=== PATIENT | female | born 1980 | race Caucasian/White ===

== ENCOUNTER 2019-01-21 06:07 | Emergency (ER) | payer MEDICAID ==
[2019-01-21] MEDS ORDERED: HYDROmorphone 1 MG/ML CARPUJECT IVP STA (06:32)
[2019-01-21] MEDS ORDERED: ONDANSETRON 4 MG/2 ML VIAL IVP STA (06:32)
[2019-01-21] MEDS ORDERED: SODIUM CHLORIDE 0.9% 1,000 ML IV ONE (06:34)
--- NOTE | 2019-01-21 06:34 | ED Physician Documentation ---
<Skyler Stroud - Last Filed: 01/21/19 07:34> PD HPI ABD PAIN - Stated complaint Stated Complaint: RT SIDE PX - Chief complaint Chief Complaint: Abd Pain - History obtained from History obtained from: Patient - History of Present Illness Timing - onset: How many days ago (2) Timing - duration: Days (2) Timing - details: Intermittant (She states she has had right upper quadrant intermittent pains for the last couple of days lasting a few minutes at a time and moderate in severity. It did not seem to correlate with eating per se. She then had an abrupt onset of it this morning that was severe and intensity and persisted associated with some nausea. It is easing up a little bit now but has been hurting a lot for about an hour.) Quality: Cramping, Aching, Pain Location: RUQ Radiation: No: Lower back, Right shoulder Improved by: No: Laying still Worsened by: Moving, Palpation Associated symptoms: Nausea. No: Fever, Vomiting, Diarrhea, Constipation, Dysuria Similar symptoms before: Has not had sx before (just the past 2 days) Recently seen: Not recently seen Review of Systems Constitutional: denies: Fever, Chills Nose: denies: Rhinorrhea / runny nose, Congestion Throat: denies: Sore throat Respiratory: denies: Cough GI: reports: Abdominal Pain (Just noted as in the present illness. She had not been noticing any food intolerance or prior abdominal pains.), Nausea. denies: Vomiting, Constipation, Diarrhea : denies: Dysuria, Frequency Skin: denies: Rash, Lesions Neurologic: reports: Generalized weakness. denies: Focal weakness, Numbness, Near syncope PD PAST MEDICAL HISTORY - Past Medical History Past Medical History: Yes Cardiovascular: None Respiratory: None Neuro: None Endocrine/Autoimmune: None GI: Other WOOD STAINER: None : None HEENT: None Psych: None Musculoskeletal: Chronic back pain, Other Derm: None Other Past Medical History: PYLORIC STENOSIS...SCIATICA... - Past Surgical History Past Surgical History: Yes General: Other /WOOD STAINER: section HEENT: Tonsil/Adenoidectomy - Present Medications Home Medications: Ambulatory Orders Medication Instructions Recorded Confirmed Hydrocodone/Acetaminophen [[place] 1 each PO Q6H PRN #15 tablet 01/21/19 5-325 Tablet] Naproxen 375 mg PO BID #20 tablet 01/21/19 Ondansetron Odt [Zofran] 4 mg TL Q6H PRN #10 tablet 01/21/19 - Allergies Allergies/Adverse Reactions: Allergies Allergy/AdvReac Type Severity Reaction Status Date / Time Penicillins AdvReac Unknown Verified 01/21/19 06:18 sumatriptan [From Imitrex] AdvReac Unknown Verified 01/21/19 06:18 - Social History Does the pt smoke?: Yes Smoking Status: Current every day smoker Does the pt drink ETOH?: No Does the pt have substance abuse?: No - Immunizations Immunizations are current?: Yes - POLST Patient has POLST: No PD ED PE NORMAL - Vitals Vital signs reviewed: Yes - General General: Alert and oriented X 3, Well developed/nourished, Other (appears in discomfort) - HEENT HEENT: PERRL (nonicteric), Pharynx benign - Neck Neck: Supple, no meningeal sign, No adenopathy - Cardiac Cardiac: RRR (mild tachycardia), No murmur - Respiratory Respiratory: Clear bilaterally - Abdomen Abdomen: Normal bowel sounds, Soft, Non distended, Other (obese; She has moderate to significant tenderness in the right upper quadrant which worsens with deep breathing. There is mild percussion tenderness in the area. There is no rebound or referred tenderness from other parts of the abdomen. Bowel sounds are present and slightly hypoactive.) - Female Female : Deferred - Back Back: No CVA TTP - Derm Derm: Normal color, Warm and dry - Extremities Extremities: No edema, No calf tenderness / cord - Neuro Neuro: Alert and oriented X 3, No motor deficit, Normal speech PD MEDICAL DECISION MAKING - ED course Complexity details: considered differential (Sounds like gallbladder type pain. Will get labs and ultrasound to see if it looks acute cholecystitis or biliary colic. We will give her some IV fluids and medications for nausea and pain here.), d/w patient Departure - Departure Disposition: 01 Home, Self Care Clinical Impression: Biliary colic Abdominal pain Qualifiers: Abdominal location: right upper quadrant Qualified Code(s): R10.11 - Right upper quadrant pain Condition: Stable Record reviewed to determine appropriate education?: Yes Instructions: ED Gallstone W Biliary Colic [facility]Provider Group] Prescriptions: Hydrocodone/Acetaminophen [[place] 5-325 Tablet] 1 each PO Q6H PRN #15 tablet PRN Reason: Pain Naproxen 375 mg PO BID #20 tablet Ondansetron Odt [Zofran] 4 mg TL Q6H PRN #10 tablet PRN Reason: Nausea / Vomiting Comments: This sounds like gallbladder spasms. Avoid fatty foods. Use naproxen anti- inflammatory twice daily for the next several days. Ondansetron as needed for nausea. Add hydrocodone if needed for worse pain. Follow-up with surgery and call for an appointment. This would be to discuss the treatment options of nonoperative or operative. Forms: Activity restrictions <Skyler Ray - Last Filed: 01/21/19 10:48> Results - Vitals Vitals: Vital Signs - 24 hr 01/21/19 01/21/19 01/21/19 06:16 06:23 06:53 Temperature 36.5 C Heart Rate 108 H 98 Respiratory 17 22 16 Rate Blood Pressure 136/82 H 124/68 O2 Saturation 100 97 Oxygen O2 Source Room air - Labs Labs: Laboratory Tests 01/21/19 01/21/19 01/21/19 06:20 06:20 08:59 WBC 6.7 RBC 5.11 Hgb 10.3 L Hct 34.0 L MCV 66.4 L MCH 20.1 L MCHC 30.3 L RDW 18.3 H Plt Count 469 H MPV 7.6 L Neut # (Auto) 3.7 Lymph # (Auto) 2.1 [place] # (Auto) 0.6 Eos # (Auto) 0.2 Baso # (Auto) 0.0 Absolute Nucleated RBC 0.00 Nucleated RBC % 0.1 Sodium 138 Potassium 3.4 L Chloride 99 L Carbon Dioxide 24 Anion Gap 15.0 H BUN 21 H Creatinine 0.9 Estimated GFR (MDRD) 70 L Glucose 124 H Calcium 9.2 Total Bilirubin 0.3 AST 34 ALT 23 Alkaline Phosphatase 97 Total Protein 8.1 Albumin 3.8 Globulin 4.3 H Albumin/Globulin Ratio 0.9 L Lipase 35 Urine Color YELLOW Urine Clarity CLEAR Urine pH 6.0 Ur Specific [place] 1.010 Urine Protein NEGATIVE Urine Glucose (UA) NEGATIVE Urine Ketones NEGATIVE Urine Occult Blood NEGATIVE Urine Nitrite NEGATIVE Urine Bilirubin NEGATIVE Urine Urobilinogen 0.2 (NORMAL) Ur Leukocyte Esterase NEGATIVE Ur Microscopic Review NOT INDICATED Urine Culture Comments NOT INDICATED Urine HCG, Qual 01/21/19 08:59 WBC RBC Hgb Hct MCV MCH MCHC RDW Plt Count MPV Neut # (Auto) Lymph # (Auto) [place] # (Auto) Eos # (Auto) Baso # (Auto) Absolute Nucleated RBC Nucleated RBC % Sodium Potassium Chloride Carbon Dioxide Anion Gap BUN Creatinine Estimated GFR (MDRD) Glucose Calcium Total Bilirubin AST ALT Alkaline Phosphatase Total Protein Albumin Globulin Albumin/Globulin Ratio Lipase Urine Color Urine Clarity Urine pH Ur Specific [place] 1.010 Urine Protein Urine Glucose (UA) Urine Ketones Urine Occult Blood Urine Nitrite Urine Bilirubin Urine Urobilinogen Ur Leukocyte Esterase Ur Microscopic Review Urine Culture Comments Urine HCG, Qual NEGATIVE PD MEDICAL DECISION MAKING - ED course Complexity details: reviewed results, considered differential, d/w patient, d/w family ED course: 39-year-old female with right upper quadrant abdominal pain and episode today is now resolved her pain. I suspect she is having a gallbladder attack and she does not have evidence of stone on ultrasound examination. I have asked the patient to follow-up with the surgeon. She does state that she had a previous episode similar to this but it was more than 1 year ago.
[2019-01-21 06:44] LABS: BASOPHILS % (AUTO) 0.3 %; EOSINOPHILS # (AUTO) 0.2 10^3/uL (0.0-0.7); EOSINOPHILS % (AUTO) 3.4 %; HGB - HEMOGLOBIN 10.3 g/dL (12.0-16.0); LYMPHOCYTES # (AUTO) 2.1 10^3/uL (1.5-3.5); LYMPHOCYTES % (AUTO) 31.9 %; MEAN CORPUSCULAR HEMOGLOBIN 20.1 pg (27.0-31.0); MEAN CORPUSCULAR HGB CONC 30.3 g/dL (32.0-36.0); MEAN CORPUSCULAR VOLUME 66.4 fL (81.0-99.0); MEAN PLATELET VOLUME 7.6 fL (7.9-10.8); MONOCYTES # (AUTO) 0.6 10^3/uL (0.0-1.0); MONOCYTES % (AUTO) 8.5 %; NEUTROPHILS # (AUTO) 3.7 10^3/uL (1.5-6.6); NEUTROPHILS % (AUTO) 55.9 %; PLT - PLATELET COUNT 469 10^3/uL (130-450); RED BLOOD COUNT 5.11 10^6/uL (4.20-5.40); RED CELL DISTRIBUTION WIDTH 18.3 % (12.0-15.0); WHITE BLOOD COUNT 6.7 x10^3/uL (4.8-10.8)
[2019-01-21 06:52] LABS: ALBUMIN 3.8 g/dL (3.2-5.5); ALBUMIN/GLOBULIN RATIO 0.9 (1.0-2.2); BILIRUBIN,TOTAL 0.3 mg/dL (0.2-1.0); CALCIUM 9.2 mg/dL (8.5-10.3); CREATININE 0.9 mg/dL (0.4-1.0); TOTAL PROTEIN 8.1 g/dL (6.7-8.2)
[2019-01-21] MEDS ORDERED: KETOROLAC 15 MG/ML VIAL IVP STA (07:21)
--- NOTE | 2019-01-21 08:32 | Ultrasound Report ---
Reason: RUQ abd pain for couple days, worse this morning Procedure Date: 01/21/2019 Accession Number: [id number] / [id number] Procedure: US - Abdomen Limited CPT Code: FULL RESULT: EXAM: ABDOMEN ULTRASOUND LIMITED, RUQ EXAM DATE: 01/21/2019 07:33 AM. CLINICAL HISTORY: RUQ abd pain for couple days, worse this morning. COMPARISON: None. TECHNIQUE: Real-time scanning was performed with static images obtained. FINDINGS: Liver: Coarse heterogeneous with increased echogenicity, consistent with fat infiltration, with regional focal fatty sparing by the gallbladder fossa. Right lobe 19.1 cm. No obvious nodular capsule or mass. Main portal vein flow: Hepatopetal. Gallbladder: Unremarkable. No stones, wall thickening, or sonographic Ferreira's sign. Biliary System: CBD measures 5.7 mm. No intrahepatic or extrahepatic ductal dilatation. Pancreas: Mostly obscured by bowel gas. Right kidney: 12.1 cm in length without hydronephrosis. Other: No RUQ free fluid. IMPRESSION: 1. Unremarkable gallbladder. No dilated bile duct. 2. Consistent with heterogeneous fatty liver. No obvious liver mass or nodular capsule to indicate arlin cirrhosis. RADIA
[2019-01-21 09:07] LABS: BILIRUBIN,URINE NEGATIVE (NEGATIVE); GLUCOSE, URINE (UA) NEGATIVE (NEGATIVE); KETONES,URINE (UA) NEGATIVE (NEGATIVE); LEUKOCYTE ESTERASE, URINE NEGATIVE (NEGATIVE); NITRITE,URINE NEGATIVE (NEGATIVE); OCCULT BLOOD,URINE NEGATIVE (NEGATIVE); PROTEIN,URINE NEGATIVE (NEGATIVE); UROBILINOGEN,URINE 0.2 (NORMAL) E.U./dL (NORMAL)
[2019-01-21 09:09] LABS: CLARITY,URINE CLEAR (CLEAR)
[2019-01-21 09:10] LABS: HCG UR QUAL NEGATIVE
[2019-01-21 10:55] VITALS: BP 138/88
== END 2019-01-21 10:55 | disposition home or self-care (01) ==
LOC: ED 06:07
DX: K80.20 Calculus of gallbladder without cholecystitis without obstruction (principal); F17.200 Nicotine dependence, unspecified, uncomplicated
CPT/HCPCS: 36415; 76705; 80053; 81003; 81025; 83690; 85025; 96361; 96374; 96375; 99283; J1170; 81001; 87086

== ENCOUNTER 2019-04-26 10:57 | Outpatient (CLI) | payer MEDICAID ==
--- NOTE | 2019-04-27 08:41 | XRAY Report ---
Reason: LUMBAR RADIOPATHY Procedure Date: 04/26/2019 Accession Number: [id number] / [id number] Procedure: XRN - Lumbar Spine Complete CPT Code: FULL RESULT: EXAM: LUMBOSACRAL SPINE RADIOGRAPHY EXAM DATE: 04/26/2019 11:31 AM. CLINICAL HISTORY: LUMBAR RADICULOPATHY COMPARISONS: None. TECHNIQUE: 5 views. FINDINGS: Alignment: Grade 1 anterolisthesis of 4 L5. Bones: Five [id number] lumbar vertebral bodies are present. No fractures or bone lesions. Disks: L4-L5 mild disk space narrowing. Facets: L5-S1 facet arthropathy Sacroiliac Joints: Unremarkable. Soft Tissues: Normal. The visualized bowel gas pattern is normal. IMPRESSION: Mild DJD RADIA
--- NOTE | 2019-04-27 09:34 | XRAY Report ---
Reason: KNEE JOINT PAIN Procedure Date: 04/26/2019 Accession Number: [id number] / [id number] Procedure: XRN - Knee 4 View LT CPT Code: FULL RESULT: EXAM: LEFT KNEE RADIOGRAPHY EXAM DATE: 04/26/2019 11:31 AM. CLINICAL HISTORY: KNEE JOINT PAIN. COMPARISON: None. TECHNIQUE: 4 views. FINDINGS: Bones: Normal. No fractures or bone lesions. Joints: Normal. No effusion. No subluxations. Soft Tissues: Normal. No soft tissue swelling. IMPRESSION: Normal knee radiography. RADIA
== END 2019-04-26 10:58 | disposition home or self-care (01) ==
LOC: DI.N 10:57
PROVIDERS: ATTEND Family Medicine
DX: M25.562 Pain in left knee (principal); M47.817 Spondylosis without myelopathy or radiculopathy, lumbosacral region
CPT/HCPCS: 72110

== ENCOUNTER 2020-05-25 13:34 | Outpatient (CLI) | payer MEDICAID ==
--- NOTE | 2020-05-26 11:10 | Mammography Report ---
BILATERAL DIGITAL SCREENING MAMMOGRAM 3D/2D: 05/25/2020 CLINICAL: Baseline exam. No prior exams were available for comparison. There are scattered fibroglandular elements in both br easts. No significant masses, calcifications, or other findings are seen in either breast. IMPRESSION: NEGATIVE There is no mammographic evidence of malignancy. A 1 year screening mammogram is recommended. This exam was interpreted at Station ID: [id number]. NOTE: For mammograms, a report in lay terms will be sent to the patient. Approximately 15% of breast malignancies will not be visualized mammographically. In the management of a palpable breast mass, a negative mammogram must not discourage biopsy of a clinically suspicious lesion. Electronically Signed By: Luiza jaquez/braydon:05/25/2020 17:06:52 ACR BI-RADS Category 1: Negative [id number] PARENCHYMAL PATTERN: (A) - The breast(s) demonstrate(s) scattered fibroglandular densities. BI-RADS CATEGORY: (1) - 1 RECOMMENDATION: (ANNUAL) - Recommend routine annual screening mammography. [id number] 1 year screening LATERALITY: (B)
== END 2020-05-25 13:35 | disposition home or self-care (01) ==
LOC: DI.N 13:34
PROVIDERS: ATTEND Family Medicine
DX: Z12.31 Encounter for screening mammogram for malignant neoplasm of breast (principal)
CPT/HCPCS: 77063; 77067

== ENCOUNTER 2020-08-21 21:21 | Outpatient (CLI) | payer MEDICAID | END 2020-08-21 21:22 | disposition home or self-care (01) | LOC: COV 21:21 | PROVIDERS: ATTEND Family Medicine | DX: Z20.828 Contact with and (suspected) exposure to other viral communicable diseases (principal) ==

== ENCOUNTER 2023-06-13 09:06 | Inpatient (IN) | payer MEDICAID ==
[2023-06-13] MEDS ORDERED: DEXAMETHASONE 10 MG/ML VIAL IV STA (09:29)
[2023-06-13] MEDS ORDERED: ALBUTEROL NEB 2.5 MG/3 ML INH STA (09:29)
--- NOTE | 2023-06-13 09:30 | ED Physician Documentation ---
History of Present Illness - Stated complaint Stated Complaint: SOA,CHEST PX - Chief complaint Chief Complaint: Resp - Additonal information Additional information: Patient 43-year-old female with past medical significant for seasonal asthma with known allergies to penicillin and a reported intolerance to prednisone presenting to the emergency department with shortness of breath. Reports she developed right-sided chest pain with shortness of breath 4 days ago and its been getting progressively worse. Does report that she has had 2 sick contacts, both of her daughters had respiratory tract style illnesses a few weeks ago. She denies any fever but does endorse for cough, congestion. Denies any history of heart failure, coronary artery disease. Does report that she was a regular tobacco user and quit 2 weeks ago. Review of Systems Constitutional: reports: Myalgias. denies: Fever Eyes: denies: Loss of vision Ears: denies: Loss of hearing Nose: reports: Rhinorrhea / runny nose, Congestion Cardiac: reports: Chest pain / pressure Respiratory: reports: Dyspnea, Cough, Wheezing GI: reports: Abdominal Pain : denies: Dysuria Skin: denies: Rash Musculoskeletal: denies: Neck pain Neurologic: denies: Generalized weakness PD PAST MEDICAL HISTORY - Past Medical History Cardiovascular: None Respiratory: None Neuro: None Endocrine/Autoimmune: None GI: Other NEUROLOGY MANAGER: None : None HEENT: None Psych: None Musculoskeletal: Chronic back pain, Other Derm: None - Past Surgical History Past Surgical History: Yes General: Other /NEUROLOGY MANAGER: section HEENT: Tonsil/Adenoidectomy - Present Medications Home Medications: Ambulatory Orders Medication Instructions Recorded Confirmed No Known Home Medications 06/14/23 06/14/23 - Allergies Allergies/Adverse Reactions: Allergies Allergy/AdvReac Type Severity Reaction Status Date / Time mushroom Allergy Unknown Verified 06/13/23 21:06 Penicillins AdvReac Unknown Verified 01/21/19 06:18 sumatriptan [From Imitrex] AdvReac Unknown Verified 01/21/19 06:18 - Social History Does the pt smoke?: Yes Smoking Status: Current every day smoker Does the pt drink ETOH?: No Does the pt have substance abuse?: No - Immunizations Immunizations are current?: Yes - POLST Patient has POLST: No PD ED PE NORMAL - Vitals Vital signs reviewed: Yes (Tachycardic, tachypneic) - General General: Alert and oriented X 3, Other (Ill-appearing) - HEENT HEENT: Atraumatic - Neck Neck: Supple, no meningeal sign, No bony TTP, No adenopathy - Cardiac Cardiac: RRR, No murmur - Respiratory Respiratory: Other (Faint end expiratory wheeze, right lower lobe rhonchi) - Abdomen Abdomen: Normal bowel sounds, Non tender - Female Female : Deferred - Rectal Rectal: Deferred - Back Back: No CVA TTP, No spinal TTP - Derm Derm: Normal color - Extremities Extremities: No deformity - Neuro Neuro: Alert and oriented X 3, hot knife foxing cutter 2-12 intact, No motor deficit, No sensory deficit, Normal speech Results - Vitals Vitals: Oxygen O2 Source Nasal cannula Oxygen Flow Rate 2 - EKG (time done) 0914 EKG releavant findings:: EKG personally interpreted by author of this note. Relevant findings are: Sinus rhythm with rate 119 bpm. Normal axis. Normal NC, QRS, QTc intervals. No ST segment elevations or T wave inversions. - Labs Labs: Microbiology 06/13/23 09:59 Blood Culture - Preliminary Blood - Left Hand NO GROWTH AFTER 1 DAY 06/13/23 09:34 Blood Culture - Preliminary Blood - Left Iv Start NO GROWTH AFTER 1 DAY Laboratory Tests 06/13/23 06/13/23 06/13/23 09:34 09:34 09:34 WBC 25.9 H RBC 4.75 Hgb 8.5 L Hct 31.9 L MCV 67.2 L MCH 17.9 L MCHC 26.6 L RDW 17.2 H Plt Count 618 H MPV 10.4 Neut # (Auto) 21.8 H Lymph # (Auto) 2.0 [place] # (Auto) 1.3 H Eos # (Auto) 0.0 Baso # (Auto) 0.1 Absolute Nucleated RBC 0.12 Nucleated RBC % 0.5 Manual Slide Review Indicated Platelet Estimate INCREASED (>450,000) Platelet Morphology NORMAL APPEARANCE RBC Morph Micro Appear 2+ STOMATOCYTES PT 16.8 H INR 1.6 H D-Dimer 1005.3 H VBG pH VBG pCO2 VBG pO2 VBG HCO3 VBG Total CO2 VBG O2 Saturation VBG Base Excess Sodium 126 L Potassium 3.9 Chloride 90 L Carbon Dioxide 27 Anion Gap 9.0 BUN 12 Creatinine 0.5 L Estimated GFR (MDRD) 135 Glucose 533 H* Lactic Acid Calcium 9.0 Magnesium 1.7 Total Bilirubin 0.5 AST 24 ALT 20 Alkaline Phosphatase 316 H Total Creatine Kinase < 10 L B-Natriuretic Peptide Total Protein 8.2 Albumin 2.9 L Globulin 5.3 H Albumin/Globulin Ratio 0.5 L Lipase 13 Urine Color Urine Clarity Urine pH Ur Specific [place] Urine Protein Urine Glucose (UA) Urine Ketones Urine Occult Blood Urine Nitrite Urine Bilirubin Urine Urobilinogen Ur Leukocyte Esterase Urine RBC Urine WBC Ur Squamous Epith Cells Urine Bacteria Ur Microscopic Review Urine Culture Comments Nasal Adenovirus (PCR) Nasal B. parapertussis DNA (PCR) Nasal Coronavir 229E PCR Nasal Coronavir HKU1 PCR Nasal Coronavir NL63 PCR Nasal Coronavir OC43 PCR Nasal Enterovir/Rhinovir PCR Nasal Influenza B PCR Nasal Influenza A PCR Nasal Parainfluen 1 PCR Nasal Parainfluen 2 PCR Nasal Parainfluen 3 PCR Nasal Parainfluen 4 PCR Nasal RSV (PCR) Nasal B.pertussis DNA PCR Nasal C.pneumoniae (PCR) [place] Human Metapneumo PCR Nasal M.pneumoniae (PCR) Nasal SARS-CoV-2 (PCR) Urine Opiates Screen Ur Oxycodone Screen Urine Methadone Screen Ur Propoxyphene Screen Ur Barbiturates Screen Ur Tricyclics Screen Ur Phencyclidine Scrn Ur Amphetamine Screen U Methamphetamines Scrn U Benzodiazepines Scrn Urine Cocaine Screen U Cannabinoids Screen 06/13/23 06/13/23 06/13/23 09:34 09:34 09:34 WBC RBC Hgb Hct MCV MCH MCHC RDW Plt Count MPV Neut # (Auto) Lymph # (Auto) [place] # (Auto) Eos # (Auto) Baso # (Auto) Absolute Nucleated RBC Nucleated RBC % Manual Slide Review Platelet Estimate Platelet Morphology RBC Morph Micro Appear PT INR D-Dimer VBG pH VBG pCO2 VBG pO2 VBG HCO3 VBG Total CO2 VBG O2 Saturation VBG Base Excess Sodium Potassium Chloride Carbon Dioxide Anion Gap BUN Creatinine Estimated GFR (MDRD) Glucose Lactic Acid 1.6 Calcium Magnesium Total Bilirubin AST ALT Alkaline Phosphatase Total Creatine Kinase B-Natriuretic Peptide 35 Total Protein Albumin Globulin Albumin/Globulin Ratio Lipase Urine Color Urine Clarity Urine pH Ur Specific [place] Urine Protein Urine Glucose (UA) Urine Ketones Urine Occult Blood Urine Nitrite Urine Bilirubin Urine Urobilinogen Ur Leukocyte Esterase Urine RBC Urine WBC Ur Squamous Epith Cells Urine Bacteria Ur Microscopic Review Urine Culture Comments Nasal Adenovirus (PCR) NOT DETECTED Nasal B. parapertussis DNA (PCR) NOT DETECTED Nasal Coronavir 229E PCR NOT DETECTED Nasal Coronavir HKU1 PCR NOT DETECTED Nasal Coronavir NL63 PCR NOT DETECTED Nasal Coronavir OC43 PCR NOT DETECTED Nasal Enterovir/Rhinovir PCR DETECTED A Nasal Influenza B PCR NOT DETECTED Nasal Influenza A PCR NOT DETECTED Nasal Parainfluen 1 PCR NOT DETECTED Nasal Parainfluen 2 PCR NOT DETECTED Nasal Parainfluen 3 PCR NOT DETECTED Nasal Parainfluen 4 PCR NOT DETECTED Nasal RSV (PCR) NOT DETECTED Nasal B.pertussis DNA PCR NOT DETECTED Nasal C.pneumoniae (PCR) NOT DETECTED Amos Human Metapneumo PCR NOT DETECTED Nasal M.pneumoniae (PCR) NOT DETECTED Nasal SARS-CoV-2 (PCR) NOT DETECTED Urine Opiates Screen Ur Oxycodone Screen Urine Methadone Screen Ur Propoxyphene Screen Ur Barbiturates Screen Ur Tricyclics Screen Ur Phencyclidine Scrn Ur Amphetamine Screen U Methamphetamines Scrn U Benzodiazepines Scrn Urine Cocaine Screen U Cannabinoids Screen 06/13/23 06/13/23 06/13/23 09:59 10:16 10:16 WBC RBC Hgb Hct MCV MCH MCHC RDW Plt Count MPV Neut # (Auto) Lymph # (Auto) [place] # (Auto) Eos # (Auto) Baso # (Auto) Absolute Nucleated RBC Nucleated RBC % Manual Slide Review Platelet Estimate Platelet Morphology RBC Morph Micro Appear PT INR D-Dimer VBG pH 7.491 H VBG pCO2 36.4 L VBG pO2 62.1 H VBG HCO3 27.2 VBG Total CO2 28.3 VBG O2 Saturation 93.6 H VBG Base Excess 3.8 H Sodium Potassium Chloride Carbon Dioxide Anion Gap BUN Creatinine Estimated GFR (MDRD) Glucose Lactic Acid Calcium Magnesium Total Bilirubin AST ALT Alkaline Phosphatase Total Creatine Kinase B-Natriuretic Peptide Total Protein Albumin Globulin Albumin/Globulin Ratio Lipase Urine Color YELLOW Urine Clarity HAZY Urine pH 6.0 Ur Specific [place] <=1.005 Urine Protein NEGATIVE Urine Glucose (UA) >=1000 H Urine Ketones TRACE Urine Occult Blood LARGE H Urine Nitrite NEGATIVE Urine Bilirubin NEGATIVE Urine Urobilinogen 4 H Ur Leukocyte Esterase NEGATIVE Urine RBC 0-5 Urine WBC 0-3 Ur Squamous Epith Cells FEW Squamous Urine Bacteria Rare Ur Microscopic Review INDICATED Urine Culture Comments NOT INDICATED Nasal Adenovirus (PCR) Nasal B. parapertussis DNA (PCR) Nasal Coronavir 229E PCR Nasal Coronavir HKU1 PCR Nasal Coronavir NL63 PCR Nasal Coronavir OC43 PCR Nasal Enterovir/Rhinovir PCR Nasal Influenza B PCR Nasal Influenza A PCR Nasal Parainfluen 1 PCR Nasal Parainfluen 2 PCR Nasal Parainfluen 3 PCR Nasal Parainfluen 4 PCR Nasal RSV (PCR) Nasal B.pertussis DNA PCR Nasal C.pneumoniae (PCR) [place] Human Metapneumo PCR Nasal M.pneumoniae (PCR) Nasal SARS-CoV-2 (PCR) Urine Opiates Screen NEGATIVE Ur Oxycodone Screen NEGATIVE Urine Methadone Screen NEGATIVE Ur Propoxyphene Screen NEGATIVE Ur Barbiturates Screen NEGATIVE Ur Tricyclics Screen NEGATIVE Ur Phencyclidine Scrn NEGATIVE Ur Amphetamine Screen POSITIVE H U Methamphetamines Scrn POSITIVE H U Benzodiazepines Scrn NEGATIVE Urine Cocaine Screen NEGATIVE U Cannabinoids Screen NEGATIVE PD Medical Decision Making - ED course Complexity details: reviewed old records, reviewed results, re-evaluated patient, considered differential, d/w patient, d/w data center consultant ED course: Patient 43-year-old female presenting to the emergency department with shortness of breath x4 days. Arrives in extremis, hypoxic, tachycardic, tachypneic. Started on supplemental oxygen. Breathing treatments and Decadron ordered which she tolerated well. Physical exam demonstrated an ill-appearing patient with end expiratory wheeze and notable coarse rhonchi in the right lower lung field. Chest x-ray positive for possible fluid overload state and right lower lobe consolidation. Labs notable for significant leukocytosis with bandemia. Blood cultures obtained. Lactic acid within normal limits. Patient did have significant elevation in D-dimer as well as elevated INR. CT scan demonstrates significant right lower lobe consolidation and pneumonia. Blood cultures obtained. Given patient's allergies started on levofloxacin here in the emergency room. Discussed with Dr. Castro who graciously agrees to accept the patient for further evaluation and treatment. Departure - Departure Disposition: 66 [facility] DC/Xfer Clinical Impression: Parainfluenza virus rhinopharyngitis, Hyperglycemia Respiratory failure Qualifiers: Chronicity: acute Respiratory failure complication: hypoxia Qualified Code(s): J96.01 - Acute respiratory failure with hypoxia PNA (pneumonia) Qualifiers: Pneumonia type: due to unspecified organism Laterality: unspecified laterality Lung location: unspecified part of lung Qualified Code(s): J18.9 - Pneumonia, unspecified organism Discharge Date/Time: 06/13/23 17:43
[2023-06-13] MEDS ORDERED: IPRATROPIUM/ALBUTEROL 3 ML NEB INH ONE (09:33)
[2023-06-13 09:43] LABS: BASOPHILS # (AUTO) 0.1 10^3/uL (0.0-0.1); BASOPHILS % (AUTO) 0.5 %; EOSINOPHILS % (AUTO) 0.1 %; HCT - HEMATOCRIT 31.9 % (37.0-47.0); HGB - HEMOGLOBIN 8.5 g/dL (12.0-16.0); LYMPHOCYTES % (AUTO) 7.8 %; MEAN CORPUSCULAR HEMOGLOBIN 17.9 pg (27.0-31.0); MEAN CORPUSCULAR HGB CONC 26.6 g/dL (32.0-36.0); MEAN CORPUSCULAR VOLUME 67.2 fL (81.0-99.0); MEAN PLATELET VOLUME 10.4 fL (7.9-10.8); MONOCYTES # (AUTO) 1.3 10^3/uL (0.0-1.0); MONOCYTES % (AUTO) 4.9 %; NEUTROPHILS # (AUTO) 21.8 10^3/uL (1.5-6.6); NEUTROPHILS % (AUTO) 83.9 %; NRBC ABSOLUTE COUNT (AUTO) 0.12 x10^3/uL; NUCLEATED RED BLOOD CELLS AUTO 0.5 /100WBC; PLT - PLATELET COUNT 618 10^3/uL (130-450); RED BLOOD COUNT 4.75 10^6/uL (4.20-5.40); RED CELL DISTRIBUTION WIDTH 17.2 % (12.0-15.0); WHITE BLOOD COUNT 25.9 x10^3/uL (4.8-10.8)
[2023-06-13 09:52] LABS: SLIDE REVIEW? Indicated
[2023-06-13 09:56] LABS: ALBUMIN 2.9 g/dL (3.2-5.5); CK- CREATINE KINASE < 10 IU/L (30-223); D-DIMER 1005.3 ng/mL (200.0-255.0); LIPASE 13 U/L (11-82); MAGNESIUM 1.7 mg/dL (1.7-2.3)
[2023-06-13 10:00] LABS: INR 1.6 (0.8-1.2); PT - PROTHROMBIN TIME 16.8 secs (9.9-12.6)
[2023-06-13 10:04] LABS: VBG PH 7.491 (7.31-7.41)
[2023-06-13 10:05] LABS: VBG BASE EXCESS 3.8 mmol/L (-2 - +2); VBG HCO3 27.2 mmol/L (23-28); VBG OXYGEN SATURATION 93.6 % (60-80); VBG PCO2 36.4 mmHg (41-51); VBG PO2 62.1 mmHg (25-47); VBG TOTAL CO2 28.3 mmol/L (24-29)
[2023-06-13 10:07] LABS: ALBUMIN/GLOBULIN RATIO 0.5 (1.0-2.2); ALKALINE PHOSPHATASE 316 IU/L (42-121); ALT ALANINE AMINOTRANSFERASE 20 IU/L (10-60); AST ASPARTATE AMINOTRANSFERASE 24 IU/L (10-42); BILIRUBIN,TOTAL 0.5 mg/dL (0.2-1.0); BUN - BLOOD UREA NITROGEN 12 mg/dL (6-20); CARBON DIOXIDE - CO2 27 mmol/L (21-32); CHLORIDE 90 mmol/L (101-111); CREATININE 0.5 mg/dL (0.6-1.3); GFR - MDRD 135 (>89); GLUCOSE 533 mg/dL (74-104); POTASSIUM 3.9 mmol/L (3.5-4.5); SODIUM 126 mmol/L (135-145); TOTAL PROTEIN 8.2 g/dL (6.4-8.9)
[2023-06-13 10:13] LABS: PLATELET MORPHOLOGY NORMAL APPEARANCE (NORMAL)
[2023-06-13 10:14] LABS: PLATELET ESTIMATE, MANUAL INCREASED (>450,000) (NORMAL)
[2023-06-13 10:23] LABS: BILIRUBIN,URINE NEGATIVE (NEGATIVE); GLUCOSE, URINE (UA) >=1000 mg/dL (NEGATIVE); KETONES,URINE (UA) TRACE mg/dL (NEGATIVE); LEUKOCYTE ESTERASE, URINE NEGATIVE (NEGATIVE); NITRITE,URINE NEGATIVE (NEGATIVE); OCCULT BLOOD,URINE LARGE (NEGATIVE); PROTEIN,URINE NEGATIVE (NEGATIVE); UROBILINOGEN,URINE 4 E.U./dL (NORMAL)
[2023-06-13] MEDS ORDERED: SODIUM CHLORIDE 0.9% 1,000 ML IV STA (10:24)
[2023-06-13] MEDS ORDERED: levoFLOXacin 750 MG/150 ML 750 MG/150 ML BAG IV STA (10:27)
--- NOTE | 2023-06-13 10:33 | XRAY Report ---
PROCEDURE: Chest 1 View X-Ray INDICATIONS: chest pain TECHNIQUE: One view of the chest was acquired. COMPARISON: None. FINDINGS: Surgical changes and devices: None. Lungs and pleura: Diffuse interstitial thickening. Moderate alveolar opacity in the right mid to low er lung. Fluid in the right minor fissure. Asymmetric right hemidiaphragm elevation. Probable small r ight pleural effusion. No pneumothorax. Mediastinum: Central vascular prominence. Otherwise normal cardiomediastinal contour. Bones and chest wall: No suspicious bony lesions. Overlying soft tissues appear unremarkable. IMPRESSION: 1. Central vascular prominence and diffuse interstitial thickening may reflect edema, potentially due to acute CHF or volume overload. Diffuse viral pneumonitis may also have this appearance. 2. Right lower lung alveolar opacity and effusion. This may be infectious, inflammatory, or reflect p ulmonary edema. Reviewed by: Luiza Brooke MD on 06/13/2023 10:32 AM PDT Approved by: Luiza Brooke MD on 06/13/2023 10:32 AM PDT Station ID: [id number]
[2023-06-13 10:35] LABS: CLARITY,URINE HAZY (CLEAR)
[2023-06-13 10:36] LABS: BACTERIA,URINE Rare /HPF (None Seen); RBC,URINE 0-5 /HPF (0-5); SQUAMOUS EPITHELIAL CELL,UR FEW Squamous (<= Few); WBC,URINE 0-3 /HPF (0-5)
[2023-06-13 11:05] LABS: B. PARAPERTUSSIS- RESP PCR PAN NOT DETECTED; B. PERTUSSIS- RESP PCR PANEL NOT DETECTED; C. PNEUMONIAE- RESP PCR PANEL NOT DETECTED; CORONAVIRUS 229E-RESP PCR NOT DETECTED; CORONAVIRUS HKU1-RESP PCR NOT DETECTED; CORONAVIRUS NL63-RESP PCR NOT DETECTED; CORONAVIRUS OC43-RESP PCR NOT DETECTED; HUMAN METAPNEUMOVIRUS NOT DETECTED; INFLUENZA A- RESP PCR PANEL NOT DETECTED; INFLUENZA B - RESP PCR PANEL NOT DETECTED; M. PNEUMONIAE- RESP PCR PANEL NOT DETECTED; PARAINFLUENZA VIRUS 1 NOT DETECTED; PARAINFLUENZA VIRUS 2 NOT DETECTED; PARAINFLUENZA VIRUS 3 NOT DETECTED; PARAINFLUENZA VIRUS 4 NOT DETECTED; RHINOVIRUS/ENTEROVIRUS DETECTED; RSV- RESP PCR PANEL NOT DETECTED; SARS-CoV-2 -RESP PCR PANEL NOT DETECTED
[2023-06-13] MEDS ORDERED: INSULIN REGULAR HUMAN 300 UNIT/3 ML VIAL IVP STA (11:16)
[2023-06-13] MEDS ORDERED: ACETAMINOPHEN 325 MG TABLET PO STA (12:38)
[2023-06-13 12:49] LABS: MUDS CUTOFF CONCENTRATIONS CUTOFF CONC BELOW:
[2023-06-13] MEDS ORDERED: ACETAMINOPHEN 1,000 MG/100 ML 1,000 MG/100 ML BAG IV ONE (12:49)
[2023-06-13] MEDS ORDERED: SODIUM CHLORIDE 0.9% 2,000 ML IV STA (12:49)
[2023-06-13 13:23] LABS: COCAINE SCREEN URINE NEGATIVE (NEGATIVE); METHAMPHETAMINES SCREEN, URINE POSITIVE (NEGATIVE); OPIATE SCREEN, URINE NEGATIVE (NEGATIVE); THC CANNABINOID SCREEN, URINE NEGATIVE (NEGATIVE)
[2023-06-13 13:24] LABS: AMPHETAMINE SCREEN,URINE POSITIVE (NEGATIVE); BARBITURATE SCREEN,UR NEGATIVE (NEGATIVE); BENZODIAZEPINES SCREEN, URINE NEGATIVE (NEGATIVE); METHADONE SCREEN, URINE NEGATIVE (NEGATIVE); OXYCODONE SCREEN, URINE NEGATIVE (NEGATIVE); PROPOXYPHENE SCREEN, URINE NEGATIVE (NEGATIVE); TRICYCLIC ANTIDEPRESSANT,URINE NEGATIVE (NEGATIVE)
[2023-06-13] MEDS: IPRATROPIUM/ALBUTEROL 3 ML NEB INH PRN (13:47)
[2023-06-13] MEDS ORDERED: ONDANSETRON ODT 4 MG TABLET TL PRN (16:16)
[2023-06-13] MEDS ORDERED: ONDANSETRON 4 MG/2 ML VIAL IVP PRN (16:16)
[2023-06-13] MEDS ORDERED: SODIUM CHLORIDE FLUSH 0.9% 10 ML SYRINGE IVP PRN (16:16)
--- NOTE | 2023-06-13 16:23 | HISTORY & PHYSICAL EXAMINATION ---
Chief Complaint - Chief Complaint Chief Complaint: Shortness of breath, fever for 5 days History of Present Illness - Admitted From Admitted From:: ED - History Obtained From History obtained from: ED signout and patient - History of Present Illness HPI Comment/Other: A 43 years old female with history of seasonal asthma, known allergies to penicillin, intolerance to prednisone, class III obesity with BMI 43, smoker presented to the ED with complaints of shortness of breath. Patient reports she lives with her daughter and her sister. Her sisters 2 grandchildren were sick, and her daughter was ill as well. She started to feel shortness of breath about 4 days ago, along with right-sided chest pain. She feels like she is getting worse over the time. Which prompted her ED visit. Patient denies fever, but reports cough, congestion. Also reports right flank pain, denies dysuria or frequency. In the ED patient is afebrile, however tachycardia at heart rate 124/min, tachypnea with respiratory rate of 36/min. Elevated blood pressure of 170/104. Oxygen saturation of 89% on room air. 92% on 2 L of oxygen. Labs significant with WBC 25.9, left shift hemoglobin 8.5, platelet 618, normal eosinophils. Sodium 126, BUN 12, creatinine 0.5, glucose 533, ALP 316, INR 1.6. D-dimer 1005, BNP 36. Lactic acid 1.6 gas pH 7.49. Respiratory panel shows rhinovirus positive. UA has no sign of infection. U tox positive with amphetamine and meth. Chest x-ray shows positive of possible fluid overloaded right lower lobe consolidation. CTA ruled out pulmonary embolism, confirmed right lower lobe consolidation with pleural effusion. History - Past Medical History Cardiovascular: reports: None Respiratory: reports: None, Asthma Neuro: reports: None Endocrine/Autoimmune: reports: None GI: reports: Other SLATE CUTTER: reports: None : reports: None HEENT: reports: None Psych: reports: None Musculoskeletal: reports: Chronic back pain, Other Derm: reports: None MRSA Hx?: No - Past Surgical History General: reports: Other /SLATE CUTTER: reports: section HEENT: reports: Tonsil/Adenoidectomy - POLST Patient has POLST: No Meds/Allgy - Allergies Allergies/Adverse Reactions: Allergies Allergy/AdvReac Type Severity Reaction Status Date / Time Penicillins AdvReac Unknown Verified 01/21/19 06:18 sumatriptan [From Imitrex] AdvReac Unknown Verified 01/21/19 06:18 Review of Systems - Constitutional Constitutional: reports: Fatigue, Malaise, Poor appetite - Eyes Eyes: denies: Blurred vision, Vision loss, Dipolpia - Ears, Nose & Throat Ears, Nose & Throat: reports: Nasal congestion. denies: Postnasal drainage, Sore throat, Hoarseness - Cardiovascular Cariovascular: reports: Chest pain, Exertional dyspnea. denies: Edema, Syncope - Respiratory Respiratory: reports: Cough, Sputum production, Wheezing, SOB at rest, SOB with exertion. denies: Stridor - Gastrointestinal Gastrointestinal: denies: Abdominal distention, Nausea, Vomiting - Genitourinary Genitourinary: denies: Dysuria, Frequency, Urgency - Musculoskeletal Musculoskeletal: denies: Stiffness, Joint swelling - Neurological Neurological: reports: General weakness. denies: Focal weakness - Endocrine Endocrine: denies: Polyuria, Polydypsia, Intolerance to cold - Hematologic/Lymphatic Hematologic/Lymphatic: denies: Blood clots Prior Level of Functionality: Independent ADLs Exam - Vital Signs Reviewed Vital Signs: Yes Vital Signs: Vital Signs x48h Temp Pulse Resp BP Pulse Ox O2 Flow Rate 06/13/23 15:34 94 23 125/89 H 89 L 6 06/13/23 14:29 92 21 126/76 98 4 06/13/23 14:28 106 H 25 H 138/85 H 94 4 06/13/23 13:59 79 16 8 06/13/23 11:57 36.9 C 109 H 25 H 134/80 H 94 2 06/13/23 10:48 111 H 26 H 135/69 H 93 2 06/13/23 10:47 116 H 28 H 170/104 H 94 2 06/13/23 09:43 78 17 06/13/23 09:16 36.8 C 124 H 36 H 170/104 H 92 - Physical Exam General Appearance: positive: Moderate distress (On oxygen via oxime mask) Eyes Bilateral: positive: PERRL, EOMI ENT: positive: Dry mucous membranes Neck: positive: No JVD. negative: Stiff neck Respiratory: positive: Chest non-tender, Wheezes, Rales, Rhonchi Cardiovascular: positive: Regular rate & rhythm, Tachycardia Abdomen: positive: Nml bowel sounds. negative: Guarding, Rebound Skin: positive: Color nml, Warm Neurologic/Psychiatric: positive: Oriented x3 Sepsis Event Note (H) - Evaluation Current Stage of Sepsis: Sepsis Possible source of Sepsis: positive: Pulmonary Conclusion/Plan - Problem List (1) Sepsis Conclusion/Plan: Sepsis secondary to pneumonia, rhinovirus pneumonia and superimposed bacterial pneumonia on right lower lobe Received IV fluid resuscitation Received Levaquin in the ED, continue with IV antibioticsCefepime is added due to risk of Pseudomonas Diabetes patient MRSA PCR screening Sputum culture Pending blood culture, sputum culture for further antibiotics use decision Qualifiers: Severe sepsis acute organ dysfunction type: acute respiratory failure Acute respiratory failure type: with hypoxia Severe sepsis shock status: without septic shock (2) Hyperglycemia Conclusion/Plan: Blood glucose 544 at time of presentation, likely AIDS and diagnosed diabetes, Give glargine, meal coverage and sliding scale Check HbA1c Consistent carbohydrate diet (3) Anemia Conclusion/Plan: Hemoglobin 8.9. No sign of bleeding, likely is a chronic condition, will do more work-up once patient is more stable. No indication for transfusion at this point. Can contribute patient hypoxia. Qualifiers: Anemia type: unspecified type Qualified Code(s): D64.9 - Anemia, unspecified (4) Obesity Conclusion/Plan: BMI 41, which will complicate all aspects of patient care. (5) Elevated d-dimer Conclusion/Plan: Extremely high D-dimer 1005, CTA ruled out PE, patient does not have leg swelling or leg pain, no sign of clotting at this point, however with concerns of elevated D-dimer, further coagulation work-up will be considered - Lab Results Fish Bones: 06/13/23 09:34 06/13/23 09:34
--- NOTE | 2023-06-13 16:36 | CT Report ---
PROCEDURE: ANGIO CHEST W/WO INDICATIONS: Rule out PE CONTRAST: 100ml o mni 300 TECHNIQUE: After the administration of intravenous contrast, 2 mm axial images were acquired from the pulmonary apices to the posterior costophrenic angles during the arterial phase. In addition, 1 mm lung kernel and 5 mm soft tissue kernel reconstructions were performed. 3-dimensional coronal oblique maximum int ensity projection (MIP) reformats, 8 mm axial MIP, and 5 mm coronal and sagittal MPR reformats were t hen performed through the thorax. For radiation dose reduction, the following was used: automated exp osure control, adjustment of mA and/or kV according to patient size. COMPARISON: CT abdomen and pelvis from the same date FINDINGS: Image quality: Excellent. Large vessels: No filling defects within the opacified pulmonary arteries, accounting for motion and contrast timing. No evidence of acute aortic syndrome or aortic aneurysm. Lungs and pleura: Dense consolidation involving virtually the entire right lower lobe. There is a sma ll associated right pleural effusion with a degree of fissural fluid in the minor fissure as well. Th ere is a question of mild loculation of the pleural fluid. No suspicious pulmonary nodules which requ prema follow up. Mediastinum: Heart size is normal. No pericardial effusion. No large vessel abnormality. Shotty media stinal adenopathy is most likely reactive in nature. Chest wall and lower neck: Thyroid is unremarkab le. No axillary or supraclavicular adenopathy by size. Bones: No aggressive osseous abnormality. Upper Abdomen: Hepatomegaly IMPRESSION: 1. No acute pulmonary emboli. 2. Consolidative pneumonia involving almost the entirety of the right lower lobe. 3. Small right pleural effusion with a question of developing loculations. 4. Hepatomegaly. Comment: Progress films are recommended until clear. Please refer to a separate report for findings in the abdomen and pelvis. Reviewed by: Jose E Saez MD on 06/13/2023 4:35 PM PDT Approved by: Jose E Saez MD on 06/13/2023 4:35 PM PDT Station ID: [id number]
--- NOTE | 2023-06-13 16:38 | CT Report ---
PROCEDURE: ABDOMEN/PELVIS W INDICATIONS: RUQ pain CONTRAST: 100ml o mni 300 TECHNIQUE: After the administration of intravenous contrast, 5 mm thick sections acquired from the diaphragms to the symphysis. 5 mm thick coronal and sagittal reformats were acquired. For radiation dose reducti on, the following was used: automated exposure control, adjustment of mA and/or kV according to jhony ent size. COMPARISON: CT chest from the same date FINDINGS: Image quality: Excellent. Lung bases and heart: Dense pneumonia, right lower lobe. Small right pleural effusion with question o f developing loculations. Normal heart size. Liver: Hepatomegaly. No focal mass. Gallbladder and biliary tree: No radiopaque stones or wall thickening. No biliary dilation. Spleen: No splenomegaly. Pancreas: No pancreatic ductal dilation. Adrenals: No adrenal nodule. Kidneys and ureters: No hydronephrosis. No renal cystic lesion which requires follow up. No solid mas s. Bowel and peritoneum: No bowel distension. No pathologic free fluid. Lymph nodes: No central or retroperitoneal adenopathy. Vessels: No infrarenal aortic aneurysm. PELVIS Reproductive organs: Unremarkable. Bladder: Distended without wall thickening. Pelvic lymph nodes: No pelvic adenopathy by size criteria. Bones: No aggressive osseous abnormality. Other: No significant ventral or inguinal hernia. IMPRESSION: 1. Dense pneumonia, right lower lobe. 2. Small right pleural effusion with question developing loculations. 3. Hepatomegaly. 4. Distended bladder. 5. No other significant findings in the abdomen and pelvis. Reviewed by: Jose E Saez MD on 06/13/2023 4:37 PM PDT Approved by: Jose E Saez MD on 06/13/2023 4:37 PM PDT Station ID: [id number]
[2023-06-13] MEDS: INSULIN LISPRO 300 UNIT/3 ML PEN SUBQ SCH ×2 (18:38→21:17)
[2023-06-13] MEDS ORDERED: iohexoL-300 100 ML VIAL IVP ONE (19:00)
[2023-06-13] MEDS ORDERED: INSULIN LISPRO 300 UNIT/3 ML PEN SUBQ SCH (21:00)
[2023-06-13] MEDS ORDERED: INSULIN GLARGINE-YFGN 300 UNIT/3 ML PEN SUBQ SCH (21:00)
[2023-06-13] MEDS: SODIUM CHLORIDE FLUSH 0.9% 10 ML SYRINGE IVP SCH (21:18)
[2023-06-13] MEDS: CEFEPIME 2 GM in SODIUM CHLORIDE 0.9% MINIBAG 100 ML IV SCH (21:18)
[2023-06-14] MEDS: SODIUM CHLORIDE FLUSH 0.9% 10 ML SYRINGE IVP SCH ×4 (00:27→23:32)
[2023-06-14 06:09] LABS: BASOPHILS % (AUTO) 0.2 %; HCT - HEMATOCRIT 29.2 % (37.0-47.0); HGB - HEMOGLOBIN 7.8 g/dL (12.0-16.0); LYMPHOCYTES # (AUTO) 1.8 10^3/uL (1.5-3.5); LYMPHOCYTES % (AUTO) 7.9 %; MEAN CORPUSCULAR HEMOGLOBIN 18.1 pg (27.0-31.0); MEAN CORPUSCULAR HGB CONC 26.7 g/dL (32.0-36.0); MEAN CORPUSCULAR VOLUME 67.9 fL (81.0-99.0); MEAN PLATELET VOLUME 10.7 fL (7.9-10.8); MONOCYTES # (AUTO) 0.9 10^3/uL (0.0-1.0); MONOCYTES % (AUTO) 4.1 %; NEUTROPHILS # (AUTO) 19.6 10^3/uL (1.5-6.6); NEUTROPHILS % (AUTO) 85.9 %; NRBC ABSOLUTE COUNT (AUTO) 0.07 x10^3/uL; NUCLEATED RED BLOOD CELLS AUTO 0.3 /100WBC; PLT - PLATELET COUNT 643 10^3/uL (130-450); RED CELL DISTRIBUTION WIDTH 17.9 % (12.0-15.0); WHITE BLOOD COUNT 22.8 x10^3/uL (4.8-10.8)
[2023-06-14 06:14] LABS: PLATELET ESTIMATE, MANUAL INCREASED (>450,000) (NORMAL); PLATELET MORPHOLOGY NORMAL APPEARANCE (NORMAL); SLIDE REVIEW? Indicated
[2023-06-14 06:15] LABS: WBC MORPHOLOGY (MULTIPLE) NORMAL APPEARANCE (NORMAL)
[2023-06-14 06:21] LABS: CALCIUM 8.9 mg/dL (8.5-10.3); CREATININE 0.4 mg/dL (0.6-1.3); POTASSIUM 4.6 mmol/L (3.5-4.5)
[2023-06-14 06:59] LABS: ESTIMATED AVERAGE GLUCOSE 332 mg/dL (70-100); HEMOGLOBIN A1c% 13.2 % (4.27-6.07)
[2023-06-14] MEDS: CEFEPIME 2 GM in SODIUM CHLORIDE 0.9% MINIBAG 100 ML IV SCH ×2 (08:06→21:05)
[2023-06-14] MEDS: INSULIN LISPRO 300 UNIT/3 ML PEN SUBQ SCH ×7 (08:07→21:07)
[2023-06-14] MEDS ORDERED: levoFLOXacin 750 MG/150 ML 750 MG/150 ML BAG IV SCH (09:00)
--- NOTE | 2023-06-14 09:14 | PROVIDER PROGRESS NOTE ---
Assessment/Plan - Problem List (1) Sepsis Qualifiers: Severe sepsis acute organ dysfunction type: acute respiratory failure Acute respiratory failure type: with hypoxia Severe sepsis shock status: without septic shock Assessment/Plan: Improving, Leukocytosis is improving, WBC 22.8 today. Blood culture no growth to date MRSA nasal PCR negative Oxygen needs is about 4 L Continue with cefepime Discontinue Levaquin. Since cefepime has good gram-negative coverage as well Obtain sputum culture (2) Hyperglycemia Assessment/Plan: Improved to 200s Confirmed diabetes diagnosis. Continue with insulin (3) Anemia Qualifiers: Anemia type: unspecified type Qualified Code(s): D64.9 - Anemia, unspecified Assessment/Plan: Worsening Hemoglobin 7.8 today. No sign of bleeding No indication for IV transfusion at this point Continue monitoring hemoglobin (4) Obesity Assessment/Plan: Patient has central obesity, class III obesity Which may cause the prolonged hospital stay (5) Elevated d-dimer Assessment/Plan: No sign of clotting Elevated D-dimer might be related to her sepsis No leg pain May consider ultrasound of the lower leg wound emissions testing technician is available (6) Newly diagnosed diabetes Assessment/Plan: Patient has not been diagnosed with diabetes A1c 13.2, also with hyperglycemia noted at admission and fasting lab Patient is given glargine and meal coverage. With blood sugar still in 200s, increased glargine dose and also increase meal coverage DM educator Has been consulted - Current Meds Current Meds: Current Medications Generic Name Dose Route Start Last Admin Trade Name Freq PRN Reason Stop Dose Admin Albuterol/Ipratropium 3 ml 06/13/23 09:29 06/13/23 13:47 Ipratropium/Albuterol 3 Ml Neb INH 3 ml Q4HR PRN Administration Wheezing Levofloxacin 750 mg in 150 mls @ 100 mls/hr 06/14/23 09:00 06/14/23 08:06 Levaquin 750 Mg/150 Ml IV 06/16/23 10:29 100 mls/hr DAILY ROLO Administration Cefepime HCl 2 gm/ Sodium 100 mls @ 200 mls/hr 06/13/23 21:00 06/14/23 08:06 Chloride IV 200 mls/hr BID ROLO Administration Insulin Human Lispro 1 - 9 unit 06/14/23 08:00 06/14/23 08:07 Insulin Lispro 300 Unit/3 Ml Pen SUBQ 7 unit 0800,1200,1700,2100 [facility] Administration Protocol Sodium Chloride 10 ml 06/13/23 17:00 06/14/23 08:07 Sodium Chloride Flush 0.9% 10 Ml Syringe IVP 10 ml 0100,0900,1700 [facility] Administration - Lab Result Fish Bone Diagrams: 06/14/23 05:57 06/14/23 05:57 - Additional Planning My Orders: My Active Orders 06/13/23 Dinner Carb-controlled Diet [DIET] 06/13/23 16:16 Ondansetron Inj [Zofran Inj] 4 mg IVP Q6HR PRN Ondansetron Odt [Zofran Odt] 4 mg TL Q6HR PRN Sodium Chloride Flush 0.9% [Normal Saline Flush 0.9%] 10 ml IVP PRN PRN oxyCODONE [Roxicodone] 5 mg PO Q4HR PRN 06/13/23 16:19 Activity Orders [RC] Q2HR IO [RC] IOSHIFT Incentive Spirometry - RT [RC] TID Initiate Bowel Care Protocol [RC] .protocol Initiate Line Care Protocol [RC] QSHIFT Initiate Personal Care Protoco [RC] .protocol Oxygen Therapy [RC] .PRN Vital Signs [RC] 0800,1600,0000 Code Status [OTHERS] Routine Condition of Patient [OTHERS] Routine DVT Prophylaxis [OTHERS] Routine 06/13/23 16:21 Nutrition Consult [CONS] Routine 06/13/23 17:00 Sodium Chloride Flush 0.9% [Normal Saline Flush 0.9%] 10 ml IVP 0100,0900,1700 06/13/23 17:59 Blood Glucose Checks - Eating [RC] 0800,1200,1700,2100 Initiate Hypoglycemia Protocol [RC] .protocol 06/13/23 21:00 Cefepime 2 gm Sodium Chloride 0.9% Minibag [Normal Saline 0.9% Minibag] 100 ml IV BID 06/14/23 08:00 Insulin Lispro [Humalog Kwikpen U-100] 1 - 9 unit SUBQ 0800,1200,1700,2100 06/14/23 09:00 BNP - B-NATRIURETIC PEPTIDE [CHEM] DAILY Enoxaparin [Lovenox] 40 mg SUBQ DAILY levoFLOXacin 750 MG/150 ML [Levaquin 750 mg/150 ml] 750 mg in 150 ml IV DAILY 06/14/23 12:00 Insulin Lispro [Humalog Kwikpen U-100] 6 unit SUBQ TIDWM 06/14/23 21:00 Insulin Glargine-Yfgn [Semglee] 16 unit SUBQ QPM 06/15/23 05:00 BMP - BASIC METABOLIC PANEL [CHEM] DAILYLAB CBC [CBC - COMP BLD CT W/AUTO DIFF] [HEME] DAILYLAB 06/15/23 09:00 BNP - B-NATRIURETIC PEPTIDE [CHEM] DAILY 06/16/23 05:00 BMP - BASIC METABOLIC PANEL [CHEM] DAILYLAB CBC [CBC - COMP BLD CT W/AUTO DIFF] [HEME] DAILYLAB 06/16/23 09:00 BNP - B-NATRIURETIC PEPTIDE [CHEM] DAILY 06/17/23 05:00 BMP - BASIC METABOLIC PANEL [CHEM] DAILYLAB CBC [CBC - COMP BLD CT W/AUTO DIFF] [HEME] DAILYLAB 06/17/23 09:00 BNP - B-NATRIURETIC PEPTIDE [CHEM] DAILY 06/18/23 05:00 BMP - BASIC METABOLIC PANEL [CHEM] DAILYLAB CBC [CBC - COMP BLD CT W/AUTO DIFF] [HEME] DAILYLAB 06/18/23 09:00 BNP - B-NATRIURETIC PEPTIDE [CHEM] DAILY Subjective - Subjective Patient Reports: Feeling Better, Shortness of Breath (Patient reports she feels much better Still need oxygen by nasal cannula The need is down to 4 L Patient understand how significant her condition has been She reports that she has been under a lot of stress as well after her 1 year ago from a heart attack. She also has 10 ye) Objective Vital Signs: Vital Signs - 24 hr 06/13/23 06/13/23 06/13/23 09:16 09:43 10:47 Temperature 36.8 C Heart Rate 124 H 78 116 H Heart Rate [ Brachial] Respiratory 36 H 17 28 H Rate Blood Pressure 170/104 H 170/104 H Blood Pressure [Left Brachial artery] O2 Saturation 92 94 If not protocol 2 : Oxygen Flow, liters/minute 06/13/23 06/13/23 06/13/23 10:48 11:57 13:59 Temperature 36.9 C Heart Rate 111 H 109 H 79 Heart Rate [ Brachial] Respiratory 26 H 25 H 16 Rate Blood Pressure 135/69 H 134/80 H Blood Pressure [Left Brachial artery] O2 Saturation 93 94 If not protocol 2 2 8 : Oxygen Flow, liters/minute 06/13/23 06/13/23 06/13/23 14:28 14:29 15:34 Temperature Heart Rate 106 H 92 94 Heart Rate [ Brachial] Respiratory 25 H 21 23 Rate Blood Pressure 138/85 H 126/76 125/89 H Blood Pressure [Left Brachial artery] O2 Saturation 94 98 89 L If not protocol 4 4 6 : Oxygen Flow, liters/minute 06/13/23 06/13/23 06/13/23 16:55 18:00 18:10 Temperature 36.4 C L Heart Rate 84 Heart Rate [ 84 Brachial] Respiratory 23 20 Rate Blood Pressure 114/80 Blood Pressure 114/76 [Left Brachial artery] O2 Saturation 98 95 If not protocol 6 6 6 : Oxygen Flow, liters/minute 06/13/23 06/14/23 06/14/23 18:30 01:12 07:34 Temperature 36.5 C 36.4 C L Heart Rate Heart Rate [ 97 93 Brachial] Respiratory 20 20 Rate Blood Pressure Blood Pressure 119/70 131/82 H [Left Brachial artery] O2 Saturation 98 97 96 If not protocol 6 4 4 : Oxygen Flow, liters/minute Oxygen O2 Source Nasal cannula Oxygen Flow Rate 2 I&O (Last 24 Hrs): Intake and Output Totals x24h 06/12/23 06/13/23 06/14/23 23:59 23:59 23:59 Intake Total 4270.000 1600 Output Total 1 Balance 4269.000 1600 General: Alert, Oriented x3, Mild distress HEENT: PERRLA, EOMI Neck: Supple, No JVD Neuro: Alert, Non Focal Cardiovascular: Regular rate Respiratory: Wheezes, Rales Abdomen: Normal bowel sounds, Soft Extremities: No edema, No tenderness/swelling Skin: No rashes - Results Results: Laboratory Results WBC 22.8 x10^3/uL (4.8-10.8) H 06/14/23 05:57 RBC 4.30 10^6/uL (4.20-5.40) 06/14/23 05:57 Hgb 7.8 g/dL (12.0-16.0) L 06/14/23 05:57 Hct 29.2 % (37.0-47.0) L 06/14/23 05:57 MCV 67.9 fL (81.0-99.0) L 06/14/23 05:57 MCH 18.1 pg (27.0-31.0) L 06/14/23 05:57 MCHC 26.7 g/dL (32.0-36.0) L 06/14/23 05:57 RDW 17.9 % (12.0-15.0) H 06/14/23 05:57 Plt Count 643 10^3/uL (130-450) H 06/14/23 05:57 MPV 10.7 fL (7.9-10.8) 06/14/23 05:57 Neut # (Auto) 19.6 10^3/uL (1.5-6.6) H 06/14/23 05:57 Lymph # (Auto) 1.8 10^3/uL (1.5-3.5) 06/14/23 05:57 [place] # (Auto) 0.9 10^3/uL (0.0-1.0) 06/14/23 05:57 Eos # (Auto) 0.0 10^3/uL (0.0-0.7) 06/14/23 05:57 Baso # (Auto) 0.0 10^3/uL (0.0-0.1) 06/14/23 05:57 Absolute Nucleated RBC 0.07 x10^3/uL 06/14/23 05:57 Nucleated RBC % 0.3 /100WBC 06/14/23 05:57 Manual Slide Review Indicated 06/14/23 05:57 WBC Morphology NORMAL APPEARANCE (NORMAL) 06/14/23 05:57 Platelet Estimate INCREASED (>450,000) (NORMAL) 06/14/23 05:57 Platelet Morphology NORMAL APPEARANCE (NORMAL) 06/14/23 05:57 RBC Morph Micro Appear 2+ MICROCYTOSIS (NORMAL) 3+ HYPOCHROMASIA (NORMAL) 06/14/23 05:57 RBC Morph Micro Appear 2+ MICROCYTOSIS (NORMAL) 3+ HYPOCHROMASIA (NORMAL) 06/14/23 05:57 PT 16.8 secs (9.9-12.6) H 06/13/23 09:34 INR 1.6 (0.8-1.2) H 06/13/23 09:34 D-Dimer 1005.3 ng/mL (200.0-255.0) H 06/13/23 09:34 VBG pH 7.491 (7.31-7.41) H 06/13/23 09:59 VBG pCO2 36.4 mmHg (41-51) L 06/13/23 09:59 VBG pO2 62.1 mmHg (25-47) H 06/13/23 09:59 VBG HCO3 27.2 mmol/L (23-28) 06/13/23 09:59 VBG Total CO2 28.3 mmol/L (24-29) 06/13/23 09:59 VBG O2 Saturation 93.6 % (60-80) H 06/13/23 09:59 VBG Base Excess 3.8 mmol/L (-2 - +2) H 06/13/23 09:59 Sodium 133 mmol/L (135-145) L 06/14/23 05:57 Potassium 4.6 mmol/L (3.5-4.5) H 06/14/23 05:57 Chloride 99 mmol/L (101-111) L 06/14/23 05:57 Carbon Dioxide 24 mmol/L (21-32) 06/14/23 05:57 Anion Gap 10.0 (6-13) 06/14/23 05:57 BUN 20 mg/dL (6-20) 06/14/23 05:57 Creatinine 0.4 mg/dL (0.6-1.3) L 06/14/23 05:57 Estimated GFR (MDRD) 174 (>89) 06/14/23 05:57 Glucose 366 mg/dL (74-104) H 06/14/23 05:57 POC Whole Bld Glucose 324 mg/dL (70 - 100) H 06/14/23 07:25 Estimat Average Glucose 332 mg/dL (70-100) H 06/14/23 05:57 Hemoglobin A1c % 13.2 % (4.27-6.07) H 06/14/23 05:57 Lactic Acid 1.6 mmol/L (0.5-2.2) 06/13/23 09:34 Calcium 8.9 mg/dL (8.5-10.3) 06/14/23 05:57 Magnesium 1.7 mg/dL (1.7-2.3) 06/13/23 09:34 Total Bilirubin 0.5 mg/dL (0.2-1.0) 06/13/23 09:34 AST 24 IU/L (10-42) 06/13/23 09:34 ALT 20 IU/L (10-60) 06/13/23 09:34 Alkaline Phosphatase 316 IU/L (42-121) H 06/13/23 09:34 Total Creatine Kinase < 10 IU/L (30-223) L 06/13/23 09:34 B-Natriuretic Peptide 35 pg/mL (5-100) 06/13/23 09:34 Total Protein 8.2 g/dL (6.4-8.9) 06/13/23 09:34 Albumin 2.9 g/dL (3.2-5.5) L 06/13/23 09:34 Globulin 5.3 g/dL (2.1-4.2) H 06/13/23 09:34 Albumin/Globulin Ratio 0.5 (1.0-2.2) L 06/13/23 09:34 Lipase 13 U/L (11-82) 06/13/23 09:34 Urine Color YELLOW 06/13/23 10:16 Urine Clarity HAZY (CLEAR) 06/13/23 10:16 Urine pH 6.0 PH (5.0-7.5) 06/13/23 10:16 Ur Specific [place] <=1.005 (1.002-1.030) 06/13/23 10:16 Urine Protein NEGATIVE mg/dL (NEGATIVE) 06/13/23 10:16 Urine Glucose (UA) >=1000 mg/dL (NEGATIVE) H 06/13/23 10:16 Urine Ketones TRACE mg/dL (NEGATIVE) 06/13/23 10:16 Urine Occult Blood LARGE (NEGATIVE) H 06/13/23 10:16 Urine Nitrite NEGATIVE (NEGATIVE) 06/13/23 10:16 Urine Bilirubin NEGATIVE (NEGATIVE) 06/13/23 10:16 Urine Urobilinogen 4 E.U./dL (NORMAL) H 06/13/23 10:16 Ur Leukocyte Esterase NEGATIVE (NEGATIVE) 06/13/23 10:16 Urine RBC 0-5 /HPF (0-5) 06/13/23 10:16 Urine WBC 0-3 /HPF (0-5) 06/13/23 10:16 Ur Squamous Epith Cells FEW Squamous (<= Few) 06/13/23 10:16 Urine Bacteria Rare /HPF (None Seen) 06/13/23 10:16 Ur Microscopic Review INDICATED 06/13/23 10:16 Urine Culture Comments NOT INDICATED 06/13/23 10:16 Nasal Adenovirus (PCR) NOT DETECTED 06/13/23 09:34 Nasal B. parapertussis DNA (PCR) NOT DETECTED 06/13/23 09:34 Nasal Coronavir 229E PCR NOT DETECTED 06/13/23 09:34 Nasal Coronavir HKU1 PCR NOT DETECTED 06/13/23 09:34 Nasal Coronavir NL63 PCR NOT DETECTED 06/13/23 09:34 Nasal Coronavir OC43 PCR NOT DETECTED 06/13/23 09:34 Nasal Enterovir/Rhinovir PCR DETECTED A 06/13/23 09:34 Nasal Influenza B PCR NOT DETECTED 06/13/23 09:34 Nasal Influenza A PCR NOT DETECTED 06/13/23 09:34 Nasal Parainfluen 1 PCR NOT DETECTED 06/13/23 09:34 Nasal Parainfluen 2 PCR NOT DETECTED 06/13/23 09:34 Nasal Parainfluen 3 PCR NOT DETECTED 06/13/23 09:34 Nasal Parainfluen 4 PCR NOT DETECTED 06/13/23 09:34 Nasal RSV (PCR) NOT DETECTED 06/13/23 09:34 Nasal Screen MRSA (PCR) NEGATIVE (NEGATIVE) 06/13/23 21:25 Nasal B.pertussis DNA PCR NOT DETECTED 06/13/23 09:34 Nasal C.pneumoniae (PCR) NOT DETECTED 06/13/23 09:34 Amos Human Metapneumo PCR NOT DETECTED 06/13/23 09:34 Nasal M.pneumoniae (PCR) NOT DETECTED 06/13/23 09:34 Nasal SARS-CoV-2 (PCR) NOT DETECTED 06/13/23 09:34 Urine Opiates Screen NEGATIVE (NEGATIVE) 06/13/23 10:16 Ur Oxycodone Screen NEGATIVE (NEGATIVE) 06/13/23 10:16 Urine Methadone Screen NEGATIVE (NEGATIVE) 06/13/23 10:16 Ur Propoxyphene Screen NEGATIVE (NEGATIVE) 06/13/23 10:16 Ur Barbiturates Screen NEGATIVE (NEGATIVE) 06/13/23 10:16 Ur Tricyclics Screen NEGATIVE (NEGATIVE) 06/13/23 10:16 Ur Phencyclidine Scrn NEGATIVE (NEGATIVE) 06/13/23 10:16 Ur Amphetamine Screen POSITIVE (NEGATIVE) H 06/13/23 10:16 U Methamphetamines Scrn POSITIVE (NEGATIVE) H 06/13/23 10:16 U Benzodiazepines Scrn NEGATIVE (NEGATIVE) 06/13/23 10:16 Urine Cocaine Screen NEGATIVE (NEGATIVE) 06/13/23 10:16 U Cannabinoids Screen NEGATIVE (NEGATIVE) 06/13/23 10:16 Sepsis Event Note (H) - Evaluation Current Stage of Sepsis: Sepsis Possible source of Sepsis: positive: Pulmonary ABX Reporting Has patient been on IV antibiotics over the past 48 hours?: Yes Current Medications - Current Medications Current Medications: Active Medications Albuterol/Ipratropium (Ipratropium/Albuterol 3 Ml Neb) 3 ml INH Q4HR PRN PRN Reason: Wheezing Last Admin: 06/13/23 13:47 Dose: 3 ml Enoxaparin Sodium (Enoxaparin 40 Mg/0.4 Ml Syringe) 40 mg SUBQ DAILY [facility] Last Admin: 06/14/23 09:16 Dose: 40 mg Cefepime HCl 2 gm/ Sodium (Chloride) 100 mls @ 200 mls/hr IV BID [facility] Last Admin: 06/14/23 08:06 Dose: 200 mls/hr Insulin Glargine-yfgn (Insulin Glargine-Yfgn 300 Unit/3 Ml Pen) 16 unit SUBQ QPM ROLO Insulin Human Lispro (Insulin Lispro 300 Unit/3 Ml Pen) 1 - 9 unit SUBQ 0800,1200,1700,2100 [facility]; Protocol Last Admin: 06/14/23 11:59 Dose: 9 unit Insulin Human Lispro (Insulin Lispro 300 Unit/3 Ml Pen) 6 unit SUBQ TIDWM [facility]; Protocol Last Admin: 06/14/23 12:00 Dose: 6 unit Ondansetron HCl (Ondansetron Odt 4 Mg Tablet) 4 mg TL Q6HR PRN PRN Reason: Nausea / Vomiting Ondansetron HCl (Ondansetron 4 Mg/2 Ml Vial) 4 mg IVP Q6HR PRN PRN Reason: Nausea / Vomiting Oxycodone HCl (Oxycodone 5 Mg Tablet) 5 mg PO Q4HR PRN PRN Reason: Pain 5 to 7 Sodium Chloride (Sodium Chloride Flush 0.9% 10 Ml Syringe) 10 ml IVP PRN PRN PRN Reason: NEEDED PER PROVIDER ORDERS Sodium Chloride (Sodium Chloride Flush 0.9% 10 Ml Syringe) 10 ml IVP 0100,0900,1700 [facility] Last Admin: 06/14/23 08:07 Dose: 10 ml No Known Home Medications 06/14/23
[2023-06-14] MEDS: ENOXAPARIN 40 MG/0.4 ML SYRINGE SUBQ SCH (09:16)
--- NOTE | 2023-06-14 10:50 | PHARMACY PROGRESS NOTE ---
- Best Possible Medication History Admit Date and Time: 06/13/23 1619 Processed by: Pharmacy Medication History completed: Yes Patient Interview: Completed As the person ultimately responsible for medication therapy, providers are able to order a medication from an existing home medication list in [facility] via the "Reconcile Routine" prior to Confirmation of that medication by youth support worker. Such practice is discouraged except when the physician, in their clinical gopi gment, deems that a medical need exists for a medication without regard to previous use.
[2023-06-14] MEDS: oxyCODONE 5 MG TABLET PO PRN ×2 (15:53→21:14)
[2023-06-14] MEDS: IPRATROPIUM/ALBUTEROL 3 ML NEB INH PRN (17:44)
[2023-06-14] MEDS ORDERED: INSULIN GLARGINE-YFGN 300 UNIT/3 ML PEN SUBQ SCH (21:00)
[2023-06-14] MEDS: guaiFENesin 600 MG TABLET PO SCH (21:05)
[2023-06-14] MEDS: guaiFENesin 100 MG/5 ML UDC PO PRN (21:54)
[2023-06-15] MEDS: oxyCODONE 5 MG TABLET PO PRN ×2 (02:55→14:03)
--- NOTE | 2023-06-15 07:28 | PROVIDER PROGRESS NOTE ---
Assessment/Plan - Problem List (1) Sepsis Qualifiers: Severe sepsis acute organ dysfunction type: acute respiratory failure Acute respiratory failure type: with hypoxia Severe sepsis shock status: without septic shock Assessment/Plan: Improving, Patient feels better,, leukocytosis is improving, Hemodynamically stable Continue with cefepime Sputum culture shows some gram-positive cocci, await for full reports. Antib iotic may need to be added just when more information comes back (2) Newly diagnosed diabetes Assessment/Plan: With HbA1c 13, and high glucose level patient is diagnosed with diabetes Adjusted her glargine dose and meal coverage try to see what is the best regimen for patient The goal for fasting glucose level is 150 - +20 (3) Hyperglycemia Assessment/Plan: Blood pressure still within 200 300, increase glargine dose, increase meal coverage Continue monitoring blood glucose level (4) Anemia Qualifiers: Anemia type: unspecified type Qualified Code(s): D64.9 - Anemia, unspecified Assessment/Plan: Anemia stable, hemoglobin 8.1 today, Continue monitoring CBC (6) Elevated d-dimer Assessment/Plan: Plans to recheck D-dimer tomorrow, still considering the elevated D-dimer is from acute disease phase, less likely is related to any clot formation or coagulation problems - Current Meds Current Meds: Current Medications Generic Name Dose Route Start Last Admin Trade Name Freq PRN Reason Stop Dose Admin Albuterol/Ipratropium 3 ml 06/13/23 09:29 06/14/23 17:44 Ipratropium/Albuterol 3 Ml Neb INH 3 ml Q4HR PRN Administration Wheezing Enoxaparin Sodium 40 mg 06/14/23 09:00 06/14/23 09:16 Enoxaparin 40 Mg/0.4 Ml Syringe SUBQ 40 mg DAILY ROLO Administration Guaifenesin 600 mg 06/14/23 21:00 06/14/23 21:05 Guaifenesin 600 Mg Tablet PO 600 mg BID ROLO Administration Guaifenesin 200 mg 06/14/23 20:10 06/14/23 21:54 Guaifenesin 100 Mg/5 Ml Udc PO 200 mg Q4H PRN Administration Cough Cefepime HCl 2 gm/ Sodium 100 mls @ 200 mls/hr 06/13/23 21:00 06/14/23 21:35 Chloride IV Infused BID ROLO Infusion Insulin Human Lispro 2 - 10 unit 06/14/23 21:00 06/14/23 21:07 Insulin Lispro 300 Unit/3 Ml Pen SUBQ 10 unit 0800,1200,1700,2100 [facility] Administration Protocol Oxycodone HCl 5 mg 06/13/23 16:16 06/15/23 02:55 Oxycodone 5 Mg Tablet PO 5 mg Q4HR PRN Administration Pain 5 to 7 Sodium Chloride 10 ml 06/13/23 17:00 06/14/23 23:32 Sodium Chloride Flush 0.9% 10 Ml Syringe IVP 10 ml 0100,0900,1700 [facility] Administration - Lab Result Fish Bone Diagrams: 06/15/23 07:11 06/15/23 07:11 - Additional Planning My Orders: My Active Orders 06/14/23 09:00 Enoxaparin [Lovenox] 40 mg SUBQ DAILY 06/14/23 15:10 CUL, RESPIRATORY [RM] Routine 06/14/23 17:44 Nebulizer [Nebulizer/MDI Tx.] [RC] .Q4PRN 06/14/23 20:10 guaiFENesin LIQUID [Robitussin Liquid] 200 mg PO Q4H PRN 06/14/23 21:00 Insulin Lispro [Humalog Kwikpen U-100] 2 - 10 unit SUBQ 0800,1200,1700,2100 guaiFENesin [Mucinex] 600 mg PO BID 06/15/23 07:11 BMP - BASIC METABOLIC PANEL [CHEM] DAILYLAB BNP - B-NATRIURETIC PEPTIDE [CHEM] DAILY CBC [CBC - COMP BLD CT W/AUTO DIFF] [HEME] DAILYLAB 06/15/23 08:00 Insulin Lispro [Humalog Kwikpen U-100] 8 unit SUBQ TIDWM 06/15/23 21:00 Insulin Glargine-Yfgn [Semglee] 20 unit SUBQ QPM 06/16/23 05:00 BMP - BASIC METABOLIC PANEL [CHEM] DAILYLAB CBC [CBC - COMP BLD CT W/AUTO DIFF] [HEME] DAILYLAB 06/16/23 09:00 BNP - B-NATRIURETIC PEPTIDE [CHEM] DAILY 06/17/23 05:00 BMP - BASIC METABOLIC PANEL [CHEM] DAILYLAB CBC [CBC - COMP BLD CT W/AUTO DIFF] [HEME] DAILYLAB 06/17/23 09:00 BNP - B-NATRIURETIC PEPTIDE [CHEM] DAILY 06/18/23 05:00 BMP - BASIC METABOLIC PANEL [CHEM] DAILYLAB CBC [CBC - COMP BLD CT W/AUTO DIFF] [HEME] DAILYLAB 06/18/23 09:00 BNP - B-NATRIURETIC PEPTIDE [CHEM] DAILY Objective Vital Signs: Vital Signs - 24 hr 06/14/23 06/14/23 06/14/23 07:34 08:20 15:35 Temperature 36.4 C L 36.5 C Heart Rate Heart Rate [ 93 105 H Brachial] Respiratory 20 24 Rate Blood Pressure 131/82 H [Left Brachial artery] Blood Pressure 143/81 H [Right Brachial artery] O2 Saturation 96 96 If not protocol 4 4 2 : Oxygen Flow, liters/minute 06/14/23 06/14/23 17:45 22:30 Temperature Heart Rate 102 H Heart Rate [ Brachial] Respiratory 20 Rate Blood Pressure [Left Brachial artery] Blood Pressure [Right Brachial artery] O2 Saturation If not protocol 2 2 : Oxygen Flow, liters/minute Oxygen O2 Source Nasal cannula Oxygen Flow Rate 2 I&O (Last 24 Hrs): Intake and Output Totals x24h 06/13/23 06/14/23 06/15/23 23:59 23:59 23:59 Intake Total 4270.000 3682 150 Output Total 1 925 600 Balance 4269.000 2757 450 - Results Results: Laboratory Results WBC 22.8 x10^3/uL (4.8-10.8) H 06/14/23 05:57 RBC 4.30 10^6/uL (4.20-5.40) 06/14/23 05:57 Hgb 7.8 g/dL (12.0-16.0) L 06/14/23 05:57 Hct 29.2 % (37.0-47.0) L 06/14/23 05:57 MCV 67.9 fL (81.0-99.0) L 06/14/23 05:57 MCH 18.1 pg (27.0-31.0) L 06/14/23 05:57 MCHC 26.7 g/dL (32.0-36.0) L 06/14/23 05:57 RDW 17.9 % (12.0-15.0) H 06/14/23 05:57 Plt Count 643 10^3/uL (130-450) H 06/14/23 05:57 MPV 10.7 fL (7.9-10.8) 06/14/23 05:57 Neut # (Auto) 19.6 10^3/uL (1.5-6.6) H 06/14/23 05:57 Lymph # (Auto) 1.8 10^3/uL (1.5-3.5) 06/14/23 05:57 Bartholomew # (Auto) 0.9 10^3/uL (0.0-1.0) 06/14/23 05:57 Eos # (Auto) 0.0 10^3/uL (0.0-0.7) 06/14/23 05:57 Baso # (Auto) 0.0 10^3/uL (0.0-0.1) 06/14/23 05:57 Absolute Nucleated RBC 0.07 x10^3/uL 06/14/23 05:57 Nucleated RBC % 0.3 /100WBC 06/14/23 05:57 Manual Slide Review Indicated 06/14/23 05:57 WBC Morphology NORMAL APPEARANCE (NORMAL) 06/14/23 05:57 Platelet Estimate INCREASED (>450,000) (NORMAL) 06/14/23 05:57 Platelet Morphology NORMAL APPEARANCE (NORMAL) 06/14/23 05:57 RBC Morph Micro Appear 2+ MICROCYTOSIS (NORMAL) 3+ HYPOCHROMASIA (NORMAL) 06/14/23 05:57 RBC Morph Micro Appear 2+ MICROCYTOSIS (NORMAL) 3+ HYPOCHROMASIA (NORMAL) 06/14/23 05:57 PT 16.8 secs (9.9-12.6) H 06/13/23 09:34 INR 1.6 (0.8-1.2) H 06/13/23 09:34 D-Dimer 1005.3 ng/mL (200.0-255.0) H 06/13/23 09:34 VBG pH 7.491 (7.31-7.41) H 06/13/23 09:59 VBG pCO2 36.4 mmHg (41-51) L 06/13/23 09:59 VBG pO2 62.1 mmHg (25-47) H 06/13/23 09:59 VBG HCO3 27.2 mmol/L (23-28) 06/13/23 09:59 VBG Total CO2 28.3 mmol/L (24-29) 06/13/23 09:59 VBG O2 Saturation 93.6 % (60-80) H 06/13/23 09:59 VBG Base Excess 3.8 mmol/L (-2 - +2) H 06/13/23 09:59 Sodium 133 mmol/L (135-145) L 06/14/23 05:57 Potassium 4.6 mmol/L (3.5-4.5) H 06/14/23 05:57 Chloride 99 mmol/L (101-111) L 06/14/23 05:57 Carbon Dioxide 24 mmol/L (21-32) 06/14/23 05:57 Anion Gap 10.0 (6-13) 06/14/23 05:57 BUN 20 mg/dL (6-20) 06/14/23 05:57 Creatinine 0.4 mg/dL (0.6-1.3) L 06/14/23 05:57 Estimated GFR (MDRD) 174 (>89) 06/14/23 05:57 Glucose 366 mg/dL (74-104) H 06/14/23 05:57 POC Whole Bld Glucose 376 mg/dL (70 - 100) H 06/14/23 20:37 Estimat Average Glucose 332 mg/dL (70-100) H 06/14/23 05:57 Hemoglobin A1c % 13.2 % (4.27-6.07) H 06/14/23 05:57 Lactic Acid 1.6 mmol/L (0.5-2.2) 06/13/23 09:34 Calcium 8.9 mg/dL (8.5-10.3) 06/14/23 05:57 Magnesium 1.7 mg/dL (1.7-2.3) 06/13/23 09:34 Total Bilirubin 0.5 mg/dL (0.2-1.0) 06/13/23 09:34 AST 24 IU/L (10-42) 06/13/23 09:34 ALT 20 IU/L (10-60) 06/13/23 09:34 Alkaline Phosphatase 316 IU/L (42-121) H 06/13/23 09:34 Total Creatine Kinase < 10 IU/L (30-223) L 06/13/23 09:34 B-Natriuretic Peptide 63 pg/mL (5-100) 06/14/23 05:57 Total Protein 8.2 g/dL (6.4-8.9) 06/13/23 09:34 Albumin 2.9 g/dL (3.2-5.5) L 06/13/23 09:34 Globulin 5.3 g/dL (2.1-4.2) H 06/13/23 09:34 Albumin/Globulin Ratio 0.5 (1.0-2.2) L 06/13/23 09:34 Lipase 13 U/L (11-82) 06/13/23 09:34 Urine Color YELLOW 06/13/23 10:16 Urine Clarity HAZY (CLEAR) 06/13/23 10:16 Urine pH 6.0 PH (5.0-7.5) 06/13/23 10:16 Ur Specific [place] <=1.005 (1.002-1.030) 06/13/23 10:16 Urine Protein NEGATIVE mg/dL (NEGATIVE) 06/13/23 10:16 Urine Glucose (UA) >=1000 mg/dL (NEGATIVE) H 06/13/23 10:16 Urine Ketones TRACE mg/dL (NEGATIVE) 06/13/23 10:16 Urine Occult Blood LARGE (NEGATIVE) H 06/13/23 10:16 Urine Nitrite NEGATIVE (NEGATIVE) 06/13/23 10:16 Urine Bilirubin NEGATIVE (NEGATIVE) 06/13/23 10:16 Urine Urobilinogen 4 E.U./dL (NORMAL) H 06/13/23 10:16 Ur Leukocyte Esterase NEGATIVE (NEGATIVE) 06/13/23 10:16 Urine RBC 0-5 /HPF (0-5) 06/13/23 10:16 Urine WBC 0-3 /HPF (0-5) 06/13/23 10:16 Ur Squamous Epith Cells FEW Squamous (<= Few) 06/13/23 10:16 Urine Bacteria Rare /HPF (None Seen) 06/13/23 10:16 Ur Microscopic Review INDICATED 06/13/23 10:16 Urine Culture Comments NOT INDICATED 06/13/23 10:16 Nasal Adenovirus (PCR) NOT DETECTED 06/13/23 09:34 Nasal B. parapertussis DNA (PCR) NOT DETECTED 06/13/23 09:34 Nasal Coronavir 229E PCR NOT DETECTED 06/13/23 09:34 Nasal Coronavir HKU1 PCR NOT DETECTED 06/13/23 09:34 Nasal Coronavir NL63 PCR NOT DETECTED 06/13/23 09:34 Nasal Coronavir OC43 PCR NOT DETECTED 06/13/23 09:34 Nasal Enterovir/Rhinovir PCR DETECTED A 06/13/23 09:34 Nasal Influenza B PCR NOT DETECTED 06/13/23 09:34 Nasal Influenza A PCR NOT DETECTED 06/13/23 09:34 Nasal Parainfluen 1 PCR NOT DETECTED 06/13/23 09:34 Nasal Parainfluen 2 PCR NOT DETECTED 06/13/23 09:34 Nasal Parainfluen 3 PCR NOT DETECTED 06/13/23 09:34 Nasal Parainfluen 4 PCR NOT DETECTED 06/13/23 09:34 Nasal RSV (PCR) NOT DETECTED 06/13/23 09:34 Nasal Screen MRSA (PCR) NEGATIVE (NEGATIVE) 06/13/23 21:25 Nasal B.pertussis DNA PCR NOT DETECTED 06/13/23 09:34 Nasal C.pneumoniae (PCR) NOT DETECTED 06/13/23 09:34 Amos Human Metapneumo PCR NOT DETECTED 06/13/23 09:34 Nasal M.pneumoniae (PCR) NOT DETECTED 06/13/23 09:34 Nasal SARS-CoV-2 (PCR) NOT DETECTED 06/13/23 09:34 Urine Opiates Screen NEGATIVE (NEGATIVE) 06/13/23 10:16 Ur Oxycodone Screen NEGATIVE (NEGATIVE) 06/13/23 10:16 Urine Methadone Screen NEGATIVE (NEGATIVE) 06/13/23 10:16 Ur Propoxyphene Screen NEGATIVE (NEGATIVE) 06/13/23 10:16 Ur Barbiturates Screen NEGATIVE (NEGATIVE) 06/13/23 10:16 Ur Tricyclics Screen NEGATIVE (NEGATIVE) 06/13/23 10:16 Ur Phencyclidine Scrn NEGATIVE (NEGATIVE) 06/13/23 10:16 Ur Amphetamine Screen POSITIVE (NEGATIVE) H 06/13/23 10:16 U Methamphetamines Scrn POSITIVE (NEGATIVE) H 06/13/23 10:16 U Benzodiazepines Scrn NEGATIVE (NEGATIVE) 06/13/23 10:16 Urine Cocaine Screen NEGATIVE (NEGATIVE) 06/13/23 10:16 U Cannabinoids Screen NEGATIVE (NEGATIVE) 06/13/23 10:16 Sepsis Event Note (H) - Evaluation Current Stage of Sepsis: Sepsis Possible source of Sepsis: positive: Pulmonary ABX Reporting Has patient been on IV antibiotics over the past 48 hours?: Yes
[2023-06-15 07:29] LABS: BASOPHILS # (AUTO) 0.1 10^3/uL (0.0-0.1); BASOPHILS % (AUTO) 0.3 %; EOSINOPHILS % (AUTO) 0.1 %; HCT - HEMATOCRIT 29.5 % (37.0-47.0); HGB - HEMOGLOBIN 8.1 g/dL (12.0-16.0); LYMPHOCYTES # (AUTO) 2.2 10^3/uL (1.5-3.5); LYMPHOCYTES % (AUTO) 11.2 %; MEAN CORPUSCULAR HEMOGLOBIN 18.4 pg (27.0-31.0); MEAN CORPUSCULAR HGB CONC 27.5 g/dL (32.0-36.0); MEAN CORPUSCULAR VOLUME 66.9 fL (81.0-99.0); MEAN PLATELET VOLUME 9.9 fL (7.9-10.8); MONOCYTES % (AUTO) 5.1 %; NEUTROPHILS # (AUTO) 16.1 10^3/uL (1.5-6.6); NEUTROPHILS % (AUTO) 80.3 %; NRBC ABSOLUTE COUNT (AUTO) 0.08 x10^3/uL; NUCLEATED RED BLOOD CELLS AUTO 0.4 /100WBC; PLT - PLATELET COUNT 790 10^3/uL (130-450); RED BLOOD COUNT 4.41 10^6/uL (4.20-5.40); RED CELL DISTRIBUTION WIDTH 19.2 % (12.0-15.0); SLIDE REVIEW? Indicated
[2023-06-15 07:39] LABS: CALCIUM 8.8 mg/dL (8.5-10.3); CREATININE 0.4 mg/dL (0.6-1.3); POTASSIUM 4.3 mmol/L (3.5-4.5)
[2023-06-15 08:00] LABS: PLATELET ESTIMATE, MANUAL INCREASED (>450,000) (NORMAL); PLATELET MORPHOLOGY NORMAL APPEARANCE (NORMAL); WBC MORPHOLOGY (MULTIPLE) NORMAL APPEARANCE (NORMAL)
[2023-06-15] MEDS: INSULIN LISPRO 300 UNIT/3 ML PEN SUBQ SCH ×7 (08:26→21:05)
[2023-06-15] MEDS: CEFEPIME 2 GM in SODIUM CHLORIDE 0.9% MINIBAG 100 ML IV SCH ×2 (08:27→21:02)
[2023-06-15] MEDS: ENOXAPARIN 40 MG/0.4 ML SYRINGE SUBQ SCH (08:27)
[2023-06-15] MEDS: guaiFENesin 600 MG TABLET PO SCH ×2 (08:27→21:02)
[2023-06-15] MEDS: SODIUM CHLORIDE FLUSH 0.9% 10 ML SYRINGE IVP SCH ×2 (08:27→17:06)
[2023-06-15] MEDS ORDERED: NS W/20 MEQ KCL 1,000 ML IV SCH (12:00)
[2023-06-15] MEDS: guaiFENesin 100 MG/5 ML UDC PO PRN (16:31)
[2023-06-15 16:32] LABS: BASOPHILS % (AUTO) 0.3 %; EOSINOPHILS % (AUTO) 0.3 %; LYMPHOCYTES % (AUTO) 12.6 %; MEAN CORPUSCULAR HEMOGLOBIN 17.9 pg (27.0-31.0); MEAN CORPUSCULAR HGB CONC 25.8 g/dL (32.0-36.0); MEAN CORPUSCULAR VOLUME 69.5 fL (81.0-99.0); MONOCYTES % (AUTO) 6.5 %; NEUTROPHILS % (AUTO) 77.4 %; PLT - PLATELET COUNT 764 10^3/uL (130-450); RED BLOOD COUNT 4.46 10^6/uL (4.20-5.40); RED CELL DISTRIBUTION WIDTH 18.8 % (12.0-15.0); WHITE BLOOD COUNT 22.1 x10^3/uL (4.8-10.8)
[2023-06-15 16:34] LABS: VBG PH 7.458 (7.31-7.41); VBG PO2 57.7 mmHg (25-47)
[2023-06-15 16:35] LABS: ABNORMAL LYMPHS % (MANUAL) 0 %; BAND NEUTROPHILS % (MANUAL) 0 %; VBG TOTAL CO2 28.2 mmol/L (24-29)
--- NOTE | 2023-06-15 16:43 | XRAY Report ---
PROCEDURE: Chest 1 View X-Ray INDICATIONS: Increased work of breathing, tachycardia TECHNIQUE: One view of the chest was acquired. COMPARISON: Chest x-ray 06/13/2023. FINDINGS: Surgical changes and devices: None. Lungs and pleura: Similar to mildly decreased right pleural effusion with adjacent atelectasis versu s consolidation. No left pleural effusion. Redemonstration of prominent interstitial markings. Mediastinum: Mediastinal contours appear normal. Heart size is normal. Bones and chest wall: No suspicious bony lesions. Overlying soft tissues appear unremarkable. IMPRESSION: 1.Similar to mildly decreased right pleural effusion with adjacent atelectasis versus consolidation. 2.Redemonstration of prominent interstitial markings, likely representing pulmonary edema, correlate with volume status. Reviewed by: Bob Leigh MD on 06/15/2023 4:42 PM PDT Approved by: Bob Leigh MD on 06/15/2023 4:42 PM PDT Station ID: [id number]
[2023-06-15 16:46] LABS: CALCIUM 8.7 mg/dL (8.5-10.3); CREATININE 0.4 mg/dL (0.6-1.3); POTASSIUM 4.2 mmol/L (3.5-4.5)
[2023-06-15] MEDS: IPRATROPIUM/ALBUTEROL 3 ML NEB INH SCH ×2 (16:48→17:18)
[2023-06-15 16:52] LABS: LYMPHOCYTES # (MANUAL) 1.5 10^3/uL (1.5-3.5); LYMPHOCYTES % (MANUAL) 7 %; MONOCYTES # (MANUAL) 2.9 10^3/uL (0.0-1.0); NEUTROPHILS # (MANUAL) 17.7 10^3/uL (1.5-6.6); NUCLEATED RBC (MANUAL) 3 %
[2023-06-15 16:53] LABS: DIFFERENTIAL COMMENT MANUAL DIFFERENTIAL; PLATELET ESTIMATE, MANUAL INCREASED (>450,000) (NORMAL); PLATELET MORPHOLOGY NORMAL APPEARANCE (NORMAL)
[2023-06-15] MEDS ORDERED: VANCOMYCIN INJ 2 GM, VANCOMYCIN INJ 500 MG in SODIUM CHLORIDE 0.9% 500 ML IV ONE (17:00)
[2023-06-15] MEDS ORDERED: INSULIN GLARGINE-YFGN 300 UNIT/3 ML PEN SUBQ SCH (21:00)
[2023-06-16] MEDS: VANCOMYCIN INJ 1 GM in SODIUM CHLORIDE 0.9% 250 ML IV SCH ×3 (00:06→17:05)
[2023-06-16] MEDS: SODIUM CHLORIDE FLUSH 0.9% 10 ML SYRINGE IVP SCH ×3 (01:53→17:07)
[2023-06-16] MEDS: IPRATROPIUM/ALBUTEROL 3 ML NEB INH SCH ×3 (06:54→12:30)
[2023-06-16] MEDS: ENOXAPARIN 40 MG/0.4 ML SYRINGE SUBQ SCH (08:00)
[2023-06-16] MEDS: INSULIN LISPRO 300 UNIT/3 ML PEN SUBQ SCH ×7 (08:00→21:39)
[2023-06-16] MEDS: guaiFENesin 600 MG TABLET PO SCH (08:00)
[2023-06-16 08:01] LABS: BASOPHILS # (AUTO) 0.1 10^3/uL (0.0-0.1); BASOPHILS % (AUTO) 0.3 %; EOSINOPHILS # (AUTO) 0.1 10^3/uL (0.0-0.7); EOSINOPHILS % (AUTO) 0.3 %; HCT - HEMATOCRIT 32.1 % (37.0-47.0); HGB - HEMOGLOBIN 8.6 g/dL (12.0-16.0); LYMPHOCYTES # (AUTO) 2.1 10^3/uL (1.5-3.5); LYMPHOCYTES % (AUTO) 11.5 %; MEAN CORPUSCULAR HEMOGLOBIN 18.1 pg (27.0-31.0); MEAN CORPUSCULAR HGB CONC 26.8 g/dL (32.0-36.0); MEAN CORPUSCULAR VOLUME 67.7 fL (81.0-99.0); MEAN PLATELET VOLUME 9.6 fL (7.9-10.8); MONOCYTES % (AUTO) 5.3 %; NEUTROPHILS # (AUTO) 14.3 10^3/uL (1.5-6.6); NEUTROPHILS % (AUTO) 79.5 %; NRBC ABSOLUTE COUNT (AUTO) 0.05 x10^3/uL; NUCLEATED RED BLOOD CELLS AUTO 0.3 /100WBC; RED BLOOD COUNT 4.74 10^6/uL (4.20-5.40); RED CELL DISTRIBUTION WIDTH 18.9 % (12.0-15.0)
[2023-06-16 08:08] LABS: D-DIMER > 1050.0 ng/mL (200.0-255.0); PLT - PLATELET COUNT 930 10^3/uL (130-450); SLIDE REVIEW? Indicated
[2023-06-16 08:12] LABS: CALCIUM 8.9 mg/dL (8.5-10.3); CREATININE 0.4 mg/dL (0.6-1.3); POTASSIUM 4.2 mmol/L (3.5-4.5)
[2023-06-16 08:13] LABS: INR 1.6 (0.8-1.2); PT - PROTHROMBIN TIME 16.9 secs (9.9-12.6)
[2023-06-16 08:25] LABS: PLATELET ESTIMATE, MANUAL INCREASED (>450,000) (NORMAL)
--- NOTE | 2023-06-16 08:37 | PROVIDER PROGRESS NOTE ---
Assessment/Plan - Problem List (1) Sepsis Qualifiers: Severe sepsis acute organ dysfunction type: acute respiratory failure Acute respiratory failure type: with hypoxia Severe sepsis shock status: without septic shock Assessment/Plan: Improving, Patient feels better, leukocytosis is improved to WBC 18,. Patient shortness of breath is less significant, oxygen needs is about 2 to 3 L at rest. She coughed out purulent sputum more frequent today Right chest pain has improved , cough is less -Continue with cefepime and vancomycin Due to sputum with mixed gram-positive and gram-negative bacteria, added vanco back yesterday. It appears helping. Repeat sputum culture today Repeat CXR, still shows right side moderate effusion, With concerns of parapneumonic effusion, empyema, US guided thoracentisis is ordered. Per US tech and radiologist, the fluid is not enough to drain. They will check again tomorrow (2) Newly diagnosed diabetes Assessment/Plan: Glucose is still fairly elevated in the 300, even after adjust the insulin dose. We will continue increase that dose until patient meets the goal of 1 50-1 80 during hospital stay Educated patient on diet, and insulin use Insulin Ab Glutamic Acid Decarboxylase Autoantibodies test are not able to be tested in patient to distinguish DM 1 vs DM 2. Patient needs to follow up as outpatient for the tests (3) Hyperglycemia Assessment/Plan: Not achieve the goal yet, continue adjust insulin dose (4) Anemia Qualifiers: Anemia type: unspecified type Qualified Code(s): D64.9 - Anemia, unspecified Assessment/Plan: Low iron, level of 11. With acute infection, holding iron supplement plan to give iron after infection is controlled (5) Obesity Assessment/Plan: Recommends patient to increase her morbility as much as tolerated Will help her to cough out suptum (6) Elevated d-dimer Assessment/Plan: persistent, likely it is related to sepsis, tissue ischemia Also, patient is having ongoing menstrual cycle, almost finish the cycle. She did report the flow seems less than usual. She is not . However, can not rule out vansular abnormalitis, cancer related procoagulant. -once her sepsis is better, may check again (7) Respiratory failure Qualifiers: Chronicity: acute Respiratory failure complication: hypoxia Qualified Code(s): J96.01 - Acute respiratory failure with hypoxia Assessment/Plan: improving still needs 2-3 L oxygen at rest (8) Substance abuse Assessment/Plan: positive Utox with meth and amphetamine. Recommends patient to quite those substance - Current Meds Current Meds: Current Medications Generic Name Dose Route Start Last Admin Trade Name Freq PRN Reason Stop Dose Admin Albuterol/Ipratropium 3 ml 06/15/23 12:00 06/16/23 08:09 Ipratropium/Albuterol 3 Ml Neb INH Not Given Q6HR ROLO Enoxaparin Sodium 40 mg 06/14/23 09:00 06/16/23 08:00 Enoxaparin 40 Mg/0.4 Ml Syringe SUBQ 40 mg DAILY ROLO Administration Guaifenesin 600 mg 06/14/23 21:00 06/16/23 08:00 Guaifenesin 600 Mg Tablet PO 600 mg BID ROLO Administration Guaifenesin 200 mg 06/14/23 20:10 06/15/23 16:31 Guaifenesin 100 Mg/5 Ml Udc PO 200 mg Q4H PRN Administration Cough Cefepime HCl 2 gm/ Sodium 100 mls @ 200 mls/hr 06/13/23 21:00 06/15/23 22:01 Chloride IV Infused BID ROLO Infusion Vancomycin HCl 1 gm/ Sodium 250 mls @ 167 mls/hr 06/16/23 01:00 06/16/23 01:52 Chloride IV Infused Q8H ROLO Infusion Insulin Glargine-yfgn 20 unit 06/15/23 21:00 06/15/23 21:05 Insulin Glargine-Yfgn 300 Unit/3 Ml Pen SUBQ 20 unit QPM ROLO Administration Insulin Human Lispro 8 unit 06/15/23 08:00 06/16/23 08:00 Insulin Lispro 300 Unit/3 Ml Pen SUBQ 8 unit TIDWM ROLO Administration Protocol Insulin Human Lispro 3 - 11 unit 06/15/23 12:00 06/16/23 08:01 Insulin Lispro 300 Unit/3 Ml Pen SUBQ 9 unit 0800,1200,1700,2100 ROLO Administration Protocol Oxycodone HCl 5 mg 06/13/23 16:16 06/15/23 14:03 Oxycodone 5 Mg Tablet PO 5 mg Q4HR PRN Administration Pain 5 to 7 Sodium Chloride 10 ml 06/13/23 17:00 06/16/23 01:53 Sodium Chloride Flush 0.9% 10 Ml Syringe IVP 10 ml 0100,0900,1700 ROLO Administration - Lab Result Fish Bone Diagrams: 06/16/23 07:49 06/16/23 07:49 - Additional Planning My Orders: My Active Orders 06/15/23 08:00 Insulin Lispro [Humalog Kwikpen U-100] 8 unit SUBQ TIDWM 06/15/23 11:56 Suction [RC] PRN 06/15/23 12:00 Insulin Lispro [Humalog Kwikpen U-100] 3 - 11 unit SUBQ 0800,1200,1700,2100 Ipratropium/Albuterol [Duoneb] 3 ml INH Q6HR 06/15/23 14:32 Telemetry (24 Hour) [RC] Q4HR 06/15/23 16:55 Miscellaenous Nursing Order [RC] ONCE 06/15/23 21:00 Insulin Glargine-Yfgn [Semglee] 20 unit SUBQ QPM 06/16/23 ANAEROBIC AND AEROBIC CULTURE [REFLAB] Routine 06/16/23 01:00 Vancomycin Inj [Vancomycin] 1 gm Sodium Chloride 0.9% [Normal Saline 0.9%] 250 ml IV Q8H 06/16/23 07:49 BMP - BASIC METABOLIC PANEL [CHEM] DAILYLAB BNP - B-NATRIURETIC PEPTIDE [CHEM] DAILY FOLATE [CHEM] DAILYLAB IRON TIBC PANEL [CHEM] DAILYLAB VITAMIN B12 [CHEM] DAILYLAB 06/17/23 05:00 BMP - BASIC METABOLIC PANEL [CHEM] DAILYLAB CBC [CBC - COMP BLD CT W/AUTO DIFF] [HEME] DAILYLAB 06/17/23 09:00 BNP - B-NATRIURETIC PEPTIDE [CHEM] DAILY 06/18/23 05:00 BMP - BASIC METABOLIC PANEL [CHEM] DAILYLAB CBC [CBC - COMP BLD CT W/AUTO DIFF] [HEME] DAILYLAB 06/18/23 09:00 BNP - B-NATRIURETIC PEPTIDE [CHEM] DAILY 06/19/23 09:00 BNP - B-NATRIURETIC PEPTIDE [CHEM] DAILY 06/20/23 09:00 BNP - B-NATRIURETIC PEPTIDE [CHEM] DAILY Subjective - Subjective Patient Reports: Feeling Better (cout), Cough (cough is less, however, with purulent sputum. yellow, thick, smell was not offensive. Updated patient and her sister on pateint's condition and the treatment plan. They understand that patient is seriously ill, needs extended hospital stay.) Objective Vital Signs: Vital Signs - 24 hr 06/15/23 06/15/23 06/15/23 16:00 17:18 20:34 Temperature 37.0 C 36.8 C Heart Rate 20 L Heart Rate [ 109 H 103 H Brachial] Respiratory 24 16 24 Rate Blood Pressure 137/81 H 126/71 [Left Brachial artery] Blood Pressure [Right Brachial artery] O2 Saturation 92 92 If not protocol 2 2 2 : Oxygen Flow, liters/minute 06/16/23 06/16/23 00:11 05:14 Temperature 36.9 C 36.6 C Heart Rate Heart Rate [ 109 H 108 H Brachial] Respiratory 20 20 Rate Blood Pressure 151/88 H [Left Brachial artery] Blood Pressure 149/84 H [Right Brachial artery] O2 Saturation 92 91 L If not protocol 2 2 : Oxygen Flow, liters/minute Oxygen O2 Source Nasal cannula Oxygen Flow Rate 2 I&O (Last 24 Hrs): Intake and Output Totals x24h 06/14/23 06/15/23 06/16/23 23:59 23:59 23:59 Intake Total 3682 2262.083 250 Output Total 925 3300 700 Balance 2757 -1037.917 -450 General: Alert, Oriented x3, Mild distress HEENT: Atraumatic, PERRLA Neck: No JVD Neuro: Alert, Non Focal Respiratory: Wheezes, Rales, Rhonchi Abdomen: Soft, No tenderness Extremities: No clubbing, No cyanosis - Results Results: Laboratory Results WBC 18.0 x10^3/uL (4.8-10.8) H 06/16/23 07:49 RBC 4.74 10^6/uL (4.20-5.40) 06/16/23 07:49 Hgb 8.6 g/dL (12.0-16.0) L 06/16/23 07:49 Hct 32.1 % (37.0-47.0) L 06/16/23 07:49 MCV 67.7 fL (81.0-99.0) L 06/16/23 07:49 MCH 18.1 pg (27.0-31.0) L 06/16/23 07:49 MCHC 26.8 g/dL (32.0-36.0) L 06/16/23 07:49 RDW 18.9 % (12.0-15.0) H 06/16/23 07:49 Plt Count 930 10^3/uL (130-450) H* 06/16/23 07:49 MPV 9.6 fL (7.9-10.8) 06/16/23 07:49 Neut # (Auto) 14.3 10^3/uL (1.5-6.6) H 06/16/23 07:49 Lymph # (Auto) 2.1 10^3/uL (1.5-3.5) 06/16/23 07:49 [place] # (Auto) 1.0 10^3/uL (0.0-1.0) 06/16/23 07:49 Eos # (Auto) 0.1 10^3/uL (0.0-0.7) 06/16/23 07:49 Baso # (Auto) 0.1 10^3/uL (0.0-0.1) 06/16/23 07:49 Absolute Nucleated RBC 0.05 x10^3/uL 06/16/23 07:49 Total Counted 100 06/15/23 16:28 Band Neuts % (Manual) 0 % (0-10) 06/15/23 16:28 Abnorm Lymph % (Manual) 0 % 06/15/23 16:28 Nucleated RBC % 0.3 /100WBC 06/16/23 07:49 Neutrophils # (Manual) 17.7 10^3/uL (1.5-6.6) H 06/15/23 16:28 Lymphocytes # (Manual) 1.5 10^3/uL (1.5-3.5) 06/15/23 16:28 Monocytes # (Manual) 2.9 10^3/uL (0.0-1.0) H 06/15/23 16:28 Eosinophils # (Manual) 0.0 10^3/uL (0-0.7) 06/15/23 16:28 Basophils # (Manual) 0.0 10^3/uL (0-0.1) 06/15/23 16:28 Nucleated RBCs 3 % 06/15/23 16:28 Differential Comment MANUAL DIFFERENTIAL 06/15/23 16:28 Manual Slide Review Indicated 10/02/23 07:49 WBC Morphology NORMAL APPEARANCE (NORMAL) 06/15/23 07:11 Platelet Estimate INCREASED (>450,000) (NORMAL) 06/16/23 07:49 Platelet Morphology NORMAL APPEARANCE (NORMAL) 06/15/23 16:28 RBC Morph Micro Appear 2+ ANISOCYTOSIS (NORMAL) 3+ MICROCYTOSIS (NORMAL) 2+ HYPOCHROMASIA (NORMAL) 1+ POLYCHROMASIA (NORMAL) 06/15/23 16: RBC Morph Micro Appear 2+ ANISOCYTOSIS (NORMAL) 3+ MICROCYTOSIS (NORMAL) 2+ HYPOCHROMASIA (NORMAL) 1+ POLYCHROMASIA (NORMAL) 06/15/23 16: RBC Morph Micro Appear 2+ ANISOCYTOSIS (NORMAL) 3+ MICROCYTOSIS (NORMAL) 2+ HYPOCHROMASIA (NORMAL) 1+ POLYCHROMASIA (NORMAL) 06/15/23 16: RBC Morph Micro Appear 2+ ANISOCYTOSIS (NORMAL) 3+ MICROCYTOSIS (NORMAL) 2+ HYPOCHROMASIA (NORMAL) 1+ POLYCHROMASIA (NORMAL) 06/15/23 16: PT 16.9 secs (9.9-12.6) H 06/16/23 07:49 INR 1.6 (0.8-1.2) H 06/16/23 07:49 D-Dimer > 1050.0 ng/mL (200.0-255.0) H 06/16/23 07:49 VBG pH 7.458 (7.31-7.41) H 06/15/23 16:28 VBG pCO2 39.0 mmHg (41-51) L 06/15/23 16:28 VBG pO2 57.7 mmHg (25-47) H 06/15/23 16:28 VBG HCO3 27.0 mmol/L (23-28) 06/15/23 16: VBG Total CO2 28.2 mmol/L (24-29) 06/15/23 16:28 VBG O2 Saturation 91.0 % (60-80) H 06/15/23 16:28 VBG Base Excess 3.0 mmol/L (-2 - +2) H 06/15/23 16:28 Sodium 129 mmol/L (135-145) L 06/16/23 07:49 Potassium 4.2 mmol/L (3.5-4.5) 06/16/23 07:49 Chloride 95 mmol/L (101-111) L 06/16/23 07:49 Carbon Dioxide 27 mmol/L (21-32) 06/16/23 07:49 Anion Gap 7.0 (6-13) 06/16/23 07:49 BUN 9 mg/dL (6-20) 06/16/23 07:49 Creatinine 0.4 mg/dL (0.6-1.3) L 06/16/23 07:49 Estimated GFR (MDRD) 174 (>89) 06/16/23 07:49 Glucose 341 mg/dL (74-104) H 06/16/23 07:49 POC Whole Bld Glucose 313 mg/dL (70 - 100) H 06/16/23 07:40 Estimat Average Glucose 332 mg/dL (70-100) H 06/14/23 05:57 Hemoglobin A1c % 13.2 % (4.27-6.07) H 06/14/23 05:57 Lactic Acid 1.6 mmol/L (0.5-2.2) 06/13/23 09:34 Calcium 8.9 mg/dL (8.5-10.3) 06/16/23 07:49 Magnesium 1.7 mg/dL (1.7-2.3) 06/13/23 09:34 Iron 11 ug/dL (50-212) L 06/16/23 07:49 TIBC 314 ug/dL (250-450) 06/16/23 07:49 % Saturation 4 % (20-50) L 06/16/23 07:49 Transferrin 224 mg/dL (203-362) 06/16/23 07:49 Total Bilirubin 0.5 mg/dL (0.2-1.0) 06/13/23 09:34 AST 24 IU/L (10-42) 06/13/23 09:34 ALT 20 IU/L (10-60) 06/13/23 09:34 Alkaline Phosphatase 316 IU/L (42-121) H 06/13/23 09:34 Total Creatine Kinase < 10 IU/L (30-223) L 06/13/23 09:34 B-Natriuretic Peptide 45 pg/mL (5-100) 06/15/23 07:11 Total Protein 8.2 g/dL (6.4-8.9) 06/13/23 09:34 Albumin 2.9 g/dL (3.2-5.5) L 06/13/23 09:34 Globulin 5.3 g/dL (2.1-4.2) H 06/13/23 09:34 Albumin/Globulin Ratio 0.5 (1.0-2.2) L 06/13/23 09:34 Lipase 13 U/L (11-82) 06/13/23 09:34 Urine Color YELLOW 06/13/23 10:16 Urine Clarity HAZY (CLEAR) 06/13/23 10:16 Urine pH 6.0 PH (5.0-7.5) 06/13/23 10:16 Ur Specific [place] <=1.005 (1.002-1.030) 06/13/23 10:16 Urine Protein NEGATIVE mg/dL (NEGATIVE) 06/13/23 10:16 Urine Glucose (UA) >=1000 mg/dL (NEGATIVE) H 06/13/23 10:16 Urine Ketones TRACE mg/dL (NEGATIVE) 06/13/23 10:16 Urine Occult Blood LARGE (NEGATIVE) H 06/13/23 10:16 Urine Nitrite NEGATIVE (NEGATIVE) 06/13/23 10:16 Urine Bilirubin NEGATIVE (NEGATIVE) 06/13/23 10:16 Urine Urobilinogen 4 E.U./dL (NORMAL) H 06/13/23 10:16 Ur Leukocyte Esterase NEGATIVE (NEGATIVE) 06/13/23 10:16 Urine RBC 0-5 /HPF (0-5) 06/13/23 10:16 Urine WBC 0-3 /HPF (0-5) 06/13/23 10:16 Ur Squamous Epith Cells FEW Squamous (<= Few) 06/13/23 10:16 Urine Bacteria Rare /HPF (None Seen) 06/13/23 10:16 Ur Microscopic Review INDICATED 06/13/23 10:16 Urine Culture Comments NOT INDICATED 06/13/23 10:16 Nasal Adenovirus (PCR) NOT DETECTED 06/13/23 09:34 Nasal B. parapertussis DNA (PCR) NOT DETECTED 06/13/23 09:34 Nasal Coronavir 229E PCR NOT DETECTED 06/13/23 09:34 Nasal Coronavir HKU1 PCR NOT DETECTED 06/13/23 09:34 Nasal Coronavir NL63 PCR NOT DETECTED 06/13/23 09:34 Nasal Coronavir OC43 PCR NOT DETECTED 06/13/23 09:34 Nasal Enterovir/Rhinovir PCR DETECTED A 06/13/23 09:34 Nasal Influenza B PCR NOT DETECTED 06/13/23 09:34 Nasal Influenza A PCR NOT DETECTED 06/13/23 09:34 Nasal Parainfluen 1 PCR NOT DETECTED 06/13/23 09:34 Nasal Parainfluen 2 PCR NOT DETECTED 06/13/23 09:34 Nasal Parainfluen 3 PCR NOT DETECTED 06/13/23 09:34 Nasal Parainfluen 4 PCR NOT DETECTED 06/13/23 09:34 Nasal RSV (PCR) NOT DETECTED 06/13/23 09:34 Nasal Screen MRSA (PCR) NEGATIVE (NEGATIVE) 06/13/23 21:25 Nasal B.pertussis DNA PCR NOT DETECTED 06/13/23 09:34 Nasal C.pneumoniae (PCR) NOT DETECTED 06/13/23 09:34 Amos Human Metapneumo PCR NOT DETECTED 06/13/23 09:34 Nasal M.pneumoniae (PCR) NOT DETECTED 06/13/23 09:34 Nasal SARS-CoV-2 (PCR) NOT DETECTED 06/13/23 09:34 Urine Opiates Screen NEGATIVE (NEGATIVE) 06/13/23 10:16 Ur Oxycodone Screen NEGATIVE (NEGATIVE) 06/13/23 10:16 Urine Methadone Screen NEGATIVE (NEGATIVE) 06/13/23 10:16 Ur Propoxyphene Screen NEGATIVE (NEGATIVE) 06/13/23 10:16 Ur Barbiturates Screen NEGATIVE (NEGATIVE) 06/13/23 10:16 Ur Tricyclics Screen NEGATIVE (NEGATIVE) 06/13/23 10:16 Ur Phencyclidine Scrn NEGATIVE (NEGATIVE) 06/13/23 10:16 Ur Amphetamine Screen POSITIVE (NEGATIVE) H 06/13/23 10:16 U Methamphetamines Scrn POSITIVE (NEGATIVE) H 06/13/23 10:16 U Benzodiazepines Scrn NEGATIVE (NEGATIVE) 06/13/23 10:16 Urine Cocaine Screen NEGATIVE (NEGATIVE) 06/13/23 10:16 U Cannabinoids Screen NEGATIVE (NEGATIVE) 06/13/23 10:16 Sepsis Event Note (H) - Evaluation Current Stage of Sepsis: Sepsis Possible source of Sepsis: positive: Pulmonary ABX Reporting Has patient been on IV antibiotics over the past 48 hours?: Yes
[2023-06-16] MEDS: CEFEPIME 2 GM in SODIUM CHLORIDE 0.9% MINIBAG 100 ML IV SCH ×2 (08:58→21:37)
--- NOTE | 2023-06-16 09:22 | XRAY Report ---
PROCEDURE: Chest 2 View X-Ray INDICATIONS: right pleural effusion follow up TECHNIQUE: 2 views of the chest were acquired. COMPARISON: CXR 06/15/2023, 06/13/2023. CT abdomen pelvis 06/13/2023. FINDINGS: Surgical changes and devices: None. Lungs and pleura: No pneumothorax. Small right pleural effusion. Patchy opacity in the right lung. Mediastinum: Mediastinal contours appear normal. Heart size is normal. Bones and chest wall: No suspicious bony lesions. Overlying soft tissues appear unremarkable. IMPRESSION: No significant interval change. Small right pleural effusion. Patchy opacity in the right lung. Reviewed by: Taras Msea MD on 06/16/2023 9:21 AM PDT Approved by: Taras Mesa MD on 06/16/2023 9:21 AM PDT Station ID: [id number]
[2023-06-16] MEDS ORDERED: IPRATROPIUM/ALBUTEROL 3 ML NEB INH PRN (13:25)
[2023-06-16] MEDS: guaiFENesin 100 MG/5 ML UDC PO PRN ×2 (16:21→21:47)
--- NOTE | 2023-06-16 16:31 | Ultrasound Report ---
PROCEDURE: Chest INDICATIONS: parapneumonic effusion (empyema suspected) TECHNIQUE: Real-time scanning was performed, and a suitable site was marked by the returns supervisor for thoracentesis to be performed by the referring clinician. COMPARISON: None. FINDINGS: Insufficient fluid is present to allow for thoracentesis. IMPRESSION: Insufficient fluid is identified to allow for thoracentesis. Reviewed by: Karson Lepe on 06/16/2023 4:30 PM PDT Approved by: Karson Lepe on 06/16/2023 4:30 PM PDT Station ID: [id number]
[2023-06-16] MEDS: oxyCODONE 5 MG TABLET PO PRN ×2 (17:08→21:47)
[2023-06-16] MEDS: INSULIN GLARGINE-YFGN 300 UNIT/3 ML PEN SUBQ SCH (21:39)
[2023-06-17] MEDS: VANCOMYCIN INJ 1 GM in SODIUM CHLORIDE 0.9% 250 ML IV SCH ×3 (00:48→17:35)
[2023-06-17] MEDS: SODIUM CHLORIDE FLUSH 0.9% 10 ML SYRINGE IVP SCH ×3 (00:58→17:35)
[2023-06-17] MEDS: oxyCODONE 5 MG TABLET PO PRN ×4 (03:02→21:35)
[2023-06-17] MEDS: guaiFENesin 100 MG/5 ML UDC PO PRN ×2 (03:03→18:18)
[2023-06-17 05:51] LABS: BASOPHILS # (AUTO) 0.1 10^3/uL (0.0-0.1); BASOPHILS % (AUTO) 0.3 %; EOSINOPHILS # (AUTO) 0.1 10^3/uL (0.0-0.7); EOSINOPHILS % (AUTO) 0.5 %; HGB - HEMOGLOBIN 8.4 g/dL (12.0-16.0); LYMPHOCYTES % (AUTO) 11.1 %; MEAN CORPUSCULAR HEMOGLOBIN 18.1 pg (27.0-31.0); MEAN CORPUSCULAR HGB CONC 26.3 g/dL (32.0-36.0); MEAN PLATELET VOLUME 9.4 fL (7.9-10.8); MONOCYTES # (AUTO) 0.9 10^3/uL (0.0-1.0); NEUTROPHILS # (AUTO) 14.2 10^3/uL (1.5-6.6); NEUTROPHILS % (AUTO) 80.3 %; NRBC ABSOLUTE COUNT (AUTO) 0.05 x10^3/uL; NUCLEATED RED BLOOD CELLS AUTO 0.3 /100WBC; RED BLOOD COUNT 4.64 10^6/uL (4.20-5.40); RED CELL DISTRIBUTION WIDTH 19.4 % (12.0-15.0); WHITE BLOOD COUNT 17.7 x10^3/uL (4.8-10.8)
[2023-06-17 06:00] LABS: PLT - PLATELET COUNT 895 10^3/uL (130-450)
[2023-06-17 06:07] LABS: CALCIUM 8.9 mg/dL (8.5-10.3); CREATININE 0.4 mg/dL (0.6-1.3); POTASSIUM 4.4 mmol/L (3.5-4.5)
[2023-06-17 06:21] LABS: PLATELET ESTIMATE, MANUAL INCREASED (>450,000) (NORMAL)
[2023-06-17 06:22] LABS: SLIDE REVIEW? Indicated
[2023-06-17] MEDS: INSULIN LISPRO 300 UNIT/3 ML PEN SUBQ SCH ×7 (08:03→21:35)
[2023-06-17] MEDS: CEFEPIME 2 GM in SODIUM CHLORIDE 0.9% MINIBAG 100 ML IV SCH ×2 (08:05→21:18)
[2023-06-17] MEDS: ENOXAPARIN 40 MG/0.4 ML SYRINGE SUBQ SCH (08:57)
[2023-06-17] MEDS: INSULIN GLARGINE-YFGN 300 UNIT/3 ML PEN SUBQ SCH ×2 (08:58→21:36)
--- NOTE | 2023-06-17 19:52 | PROVIDER PROGRESS NOTE ---
Assessment/Plan - Problem List (1) CAP (community acquired pneumonia) Qualifiers: Laterality: right Assessment/Plan: Patient still has cough and pleuritic pain, leukocytosis has improved to WBC 18,all labs reviewed. Patient shortness of breath is still significant, oxygen needs are about 2 to 3 L at rest. She coughed out purulent sputum more frequently since 06/16. Repeat CXR, still shows right side infiltrate plus effusion, but chest US shows the fluid is not enough to drain. I updated the pt Plan: Will continue with empiric iv cefepime and vancomycin to cover Pseud and MRSA Due to sputum with mixed gram-positive and gram-negative bacteria a repeat sputum culture ordered (2) Newly diagnosed diabetes Assessment/Plan: Glucose is still very elevated in the 300>> 200's, even after adjust the insulin dose up. Educated patient on diet, and insulin use Plan Insulin Ab ordered and Glutamic Acid Decarboxylase Autoantibodies test We will continue increase Insulin dose until patient meets the goal of 150-180 during hospital stay Patient needs to follow up as outpatient for DM management (3) Hyperglycemia Assessment/Plan: Not achieving the goal yet, will continue to adjust insulin dose (4) Hyponatremia Assessment/Plan: I suspect pseudohyponatremia given the very high serum glu levels. Also she may be volume depleted since she presented with sepsis Plan: Free water restriction will be stopped and management will be changed to giving NS or salt tablet (5) Acute respiratory failure with hypoxia Qualifiers: Chronicity: acute Respiratory failure complication: hypoxia Qualified Code(s): J96.01 - Acute respiratory failure with hypoxia Assessment/Plan: Very slowly improving still needs 2-3 L oxygen at rest to achieve 92% sat (6) Thrombocytosis Assessment/Plan: Climbing plt count suggests ongoing infection Plan: Cont broad spectrum antibx and follow CBC daily (7) Elevated d-dimer Assessment/Plan: Persistent, likely it is related to sepsis, tissue ischemia Also, patient is having ongoing menstrual cycle, almost finish the cycle. She did report the flow seems less than usual. She is not . However, can not rule out vascular abnormalities, cancer related procoagulant. Plan: Once her infection is better, may check again (8) Iron deficiency Anemia Qualifiers: Anemia type: unspecified type Qualified Code(s): D64.9 - Anemia, unspecified Assessment/Plan: Low iron, level of 11. With acute infection, holding iron supplement Plan to give iron after infection is controlled (9) Substance abuse Assessment/Plan: positive Utox with meth and amphetamine Recommended patient to quit those substance. SW consult (10) Obesity Assessment/Plan: Needs diat adjustments for obesity and for DM (11) Sepsis Qualifiers: Severe sepsis acute organ dysfunction type: acute respiratory failure Acute respiratory failure type: with hypoxia Severe sepsis shock status: without septic shock Assessment/Plan: Resolved - Current Meds Current Meds: Current Medications Generic Name Dose Route Start Last Admin Trade Name Freq PRN Reason Stop Dose Admin Enoxaparin Sodium 40 mg 06/14/23 09:00 06/17/23 08:57 Enoxaparin 40 Mg/0.4 Ml Syringe SUBQ 40 mg DAILY ROLO Administration Guaifenesin 200 mg 06/14/23 20:10 06/17/23 18:18 Guaifenesin 100 Mg/5 Ml Udc PO 200 mg Q4H PRN Administration Cough Cefepime HCl 2 gm/ Sodium 100 mls @ 200 mls/hr 06/13/23 21:00 06/17/23 08:35 Chloride IV Infused BID ROLO Infusion Vancomycin HCl 1 gm/ Sodium 250 mls @ 167 mls/hr 06/16/23 01:00 06/17/23 17:35 Chloride IV 167 mls/hr Q8H ROLO Administration Insulin Glargine-yfgn 20 unit 06/16/23 21:00 06/17/23 08:58 Insulin Glargine-Yfgn 300 Unit/3 Ml Pen SUBQ 20 unit BID ROLO Administration Insulin Human Lispro 8 unit 06/15/23 08:00 06/17/23 17:34 Insulin Lispro 300 Unit/3 Ml Pen SUBQ 8 unit TIDWM ROLO Administration Protocol Insulin Human Lispro 3 - 11 unit 06/15/23 12:00 06/17/23 17:35 Insulin Lispro 300 Unit/3 Ml Pen SUBQ 9 unit 0800,1200,1700,2100 ROLO Administration Protocol Oxycodone HCl 5 mg 06/13/23 16:16 06/17/23 17:45 Oxycodone 5 Mg Tablet PO 5 mg Q4HR PRN Administration Pain 5 to 7 Sodium Chloride 10 ml 06/13/23 17:00 06/17/23 17:35 Sodium Chloride Flush 0.9% 10 Ml Syringe IVP 10 ml 0100,0900,1700 [facility] Administration - Lab Result Fish Bone Diagrams: 06/21/23 05:17 06/21/23 05:17 Subjective - Subjective Patient Reports: Shortness of Breath, Other (Pleuritic pain in R lower rib cage area. Coughig up alot of junk today.) Objective Vital Signs: Vital Signs - 24 hr 06/16/23 06/17/23 06/17/23 20:22 00:58 04:47 Temperature 36.9 C 36.9 C 36.9 C Heart Rate [ 103 H 103 H 103 H Brachial] Respiratory 24 20 18 Rate Blood Pressure 138/74 H 127/79 121/72 [Right Brachial artery] O2 Saturation 93 92 94 If not protocol 2 2 2 : Oxygen Flow, liters/minute 06/17/23 06/17/23 06/17/23 08:56 13:27 16:02 Temperature 36.4 C L 36.9 C 36.9 C Heart Rate [ 110 H 109 H 108 H Brachial] Respiratory 18 20 20 Rate Blood Pressure 124/58 L 117/62 130/81 H [Right Brachial artery] O2 Saturation 95 95 94 If not protocol 2 2 2 : Oxygen Flow, liters/minute Oxygen O2 Source Nasal cannula Oxygen Flow Rate 2 I&O (Last 24 Hrs): Intake and Output Totals x24h 06/15/23 06/16/23 06/17/23 23:59 23:59 23:59 Intake Total 2262.083 2166 1390 Output Total 3300 2900 1520 Balance -1037.917 -734 -130 General: Alert, Oriented x3, Moderate distress (from pleuritic pain), Other (Has fan blowing i room) HEENT: Atraumatic, Mucous membr. moist/pink Neck: Supple, No JVD Neuro: Alert, Non Focal Cardiovascular: Regular rate, No murmurs Respiratory: Rales (R base.), Rhonchi (upper airway) Abdomen: Soft, No tenderness, Other (Obese) Extremities: No clubbing, No edema, No tenderness/swelling - Results Results: Laboratory Results WBC 17.7 x10^3/uL (4.8-10.8) H 06/17/23 05:25 RBC 4.64 10^6/uL (4.20-5.40) 06/17/23 05:25 Hgb 8.4 g/dL (12.0-16.0) L 06/17/23 05:25 Hct 32.0 % (37.0-47.0) L 06/17/23 05:25 MCV 69.0 fL (81.0-99.0) L 06/17/23 05:25 MCH 18.1 pg (27.0-31.0) L 06/17/23 05:25 MCHC 26.3 g/dL (32.0-36.0) L 06/17/23 05:25 RDW 19.4 % (12.0-15.0) H 06/17/23 05:25 Plt Count 895 10^3/uL (130-450) H* 06/17/23 05:25 MPV 9.4 fL (7.9-10.8) 06/17/23 05:25 Neut # (Auto) 14.2 10^3/uL (1.5-6.6) H 06/17/23 05:25 Lymph # (Auto) 2.0 10^3/uL (1.5-3.5) 06/17/23 05:25 [place] # (Auto) 0.9 10^3/uL (0.0-1.0) 06/17/23 05:25 Eos # (Auto) 0.1 10^3/uL (0.0-0.7) 06/17/23 05:25 Baso # (Auto) 0.1 10^3/uL (0.0-0.1) 06/17/23 05:25 Absolute Nucleated RBC 0.05 x10^3/uL 06/17/23 05:25 Total Counted 100 06/15/23 16:28 Band Neuts % (Manual) 0 % (0-10) 06/15/23 16:28 Abnorm Lymph % (Manual) 0 % 06/15/23 16:28 Nucleated RBC % 0.3 /100WBC 06/17/23 05:25 Neutrophils # (Manual) 17.7 10^3/uL (1.5-6.6) H 06/15/23 16:28 Lymphocytes # (Manual) 1.5 10^3/uL (1.5-3.5) 06/15/23 16:28 Monocytes # (Manual) 2.9 10^3/uL (0.0-1.0) H 06/15/23 16:28 Eosinophils # (Manual) 0.0 10^3/uL (0-0.7) 06/15/23 16:28 Basophils # (Manual) 0.0 10^3/uL (0-0.1) 06/15/23 16:28 Nucleated RBCs 3 % 06/15/23 16:28 Differential Comment MANUAL DIFFERENTIAL 06/15/23 16: Manual Slide Review Indicated 06/17/23 05:25 WBC Morphology NORMAL APPEARANCE (NORMAL) 06/15/23 07:11 Platelet Estimate INCREASED (>450,000) (NORMAL) 06/17/23 05:25 Platelet Morphology NORMAL APPEARANCE (NORMAL) 06/15/23 16:28 RBC Morph Micro Appear 2+ ANISOCYTOSIS (NORMAL) 2+ MICROCYTOSIS (NORMAL) 1+ HYPOCHROMASIA (NORMAL) 1+ POLYCHROMASIA (NORMAL) 1+ OVALOCYTES (NORMAL) 06/17/23 05:25 RBC Morph Micro Appear 2+ ANISOCYTOSIS (NORMAL) 2+ MICROCYTOSIS (NORMAL) 1+ HYPOCHROMASIA (NORMAL) 1+ POLYCHROMASIA (NORMAL) 1+ OVALOCYTES (NORMAL) 06/17/23 05:25 RBC Morph Micro Appear 2+ ANISOCYTOSIS (NORMAL) 2+ MICROCYTOSIS (NORMAL) 1+ HYPOCHROMASIA (NORMAL) 1+ POLYCHROMASIA (NORMAL) 1+ OVALOCYTES (NORMAL) 06/17/23 05:25 RBC Morph Micro Appear 2+ ANISOCYTOSIS (NORMAL) 2+ MICROCYTOSIS (NORMAL) 1+ HYPOCHROMASIA (NORMAL) 1+ POLYCHROMASIA (NORMAL) 1+ OVALOCYTES (NORMAL) 06/17/23 05:25 RBC Morph Micro Appear 2+ ANISOCYTOSIS (NORMAL) 2+ MICROCYTOSIS (NORMAL) 1+ HYPOCHROMASIA (NORMAL) 1+ POLYCHROMASIA (NORMAL) 1+ OVALOCYTES (NORMAL) 06/17/23 05:25 PT 16.9 secs (9.9-12.6) H 06/16/23 07:49 INR 1.6 (0.8-1.2) H 06/16/23 07:49 D-Dimer > 1050.0 ng/mL (200.0-255.0) H 06/16/23 07:49 VBG pH 7.458 (7.31-7.41) H 06/15/23 16:28 VBG pCO2 39.0 mmHg (41-51) L 06/15/23 16:28 VBG pO2 57.7 mmHg (25-47) H 06/15/23 16:28 VBG HCO3 27.0 mmol/L (23-28) 06/15/23 16:28 VBG Total CO2 28.2 mmol/L (24-29) 06/15/23 16:28 VBG O2 Saturation 91.0 % (60-80) H 06/15/23 16:28 VBG Base Excess 3.0 mmol/L (-2 - +2) H 06/15/23 16:28 Sodium 128 mmol/L (135-145) L 06/17/23 05:25 Potassium 4.4 mmol/L (3.5-4.5) 06/17/23 05:25 Chloride 95 mmol/L (101-111) L 06/17/23 05:25 Carbon Dioxide 27 mmol/L (21-32) 06/17/23 05:25 Anion Gap 6.0 (6-13) 06/17/23 05:25 BUN 9 mg/dL (6-20) 06/17/23 05:25 Creatinine 0.4 mg/dL (0.6-1.3) L 06/17/23 05:25 Estimated GFR (MDRD) 174 (>89) 06/17/23 05:25 Glucose 330 mg/dL (74-104) H 06/17/23 05:25 POC Whole Bld Glucose 281 mg/dL (70 - 100) H 06/17/23 16:33 Estimat Average Glucose 332 mg/dL (70-100) H 06/14/23 05:57 Hemoglobin A1c % 13.2 % (4.27-6.07) H 06/14/23 05:57 Lactic Acid 1.6 mmol/L (0.5-2.2) 06/13/23 09:34 Calcium 8.9 mg/dL (8.5-10.3) 06/17/23 05:25 Magnesium 1.7 mg/dL (1.7-2.3) 06/13/23 09:34 Iron 11 ug/dL (50-212) L 06/16/23 07:49 TIBC 314 ug/dL (250-450) 06/16/23 07:49 % Saturation 4 % (20-50) L 06/16/23 07:49 Transferrin 224 mg/dL (203-362) 06/16/23 07:49 Total Bilirubin 0.5 mg/dL (0.2-1.0) 06/13/23 09:34 AST 24 IU/L (10-42) 06/13/23 09:34 ALT 20 IU/L (10-60) 06/13/23 09:34 Alkaline Phosphatase 316 IU/L (42-121) H 06/13/23 09:34 Total Creatine Kinase < 10 IU/L (30-223) L 06/13/23 09:34 B-Natriuretic Peptide 28 pg/mL (5-100) 06/17/23 05:25 Total Protein 8.2 g/dL (6.4-8.9) 06/13/23 09:34 Albumin 2.9 g/dL (3.2-5.5) L 06/13/23 09:34 Globulin 5.3 g/dL (2.1-4.2) H 06/13/23 09:34 Albumin/Globulin Ratio 0.5 (1.0-2.2) L 06/13/23 09:34 Lipase 13 U/L (11-82) 06/13/23 09:34 Vitamin B12 1455 pg/mL (180-914) H 06/16/23 07:49 Folate 11.3 ng/mL (5.90 - >24.8) 06/16/23 07:49 Urine Color YELLOW 06/13/23 10:16 Urine Clarity HAZY (CLEAR) 06/13/23 10:16 Urine pH 6.0 PH (5.0-7.5) 06/13/23 10:16 Ur Specific [place] <=1.005 (1.002-1.030) 06/13/23 10:16 Urine Protein NEGATIVE mg/dL (NEGATIVE) 06/13/23 10:16 Urine Glucose (UA) >=1000 mg/dL (NEGATIVE) H 06/13/23 10:16 Urine Ketones TRACE mg/dL (NEGATIVE) 06/13/23 10:16 Urine Occult Blood LARGE (NEGATIVE) H 06/13/23 10:16 Urine Nitrite NEGATIVE (NEGATIVE) 06/13/23 10:16 Urine Bilirubin NEGATIVE (NEGATIVE) 06/13/23 10:16 Urine Urobilinogen 4 E.U./dL (NORMAL) H 06/13/23 10:16 Ur Leukocyte Esterase NEGATIVE (NEGATIVE) 06/13/23 10:16 Urine RBC 0-5 /HPF (0-5) 06/13/23 10:16 Urine WBC 0-3 /HPF (0-5) 06/13/23 10:16 Ur Squamous Epith Cells FEW Squamous (<= Few) 06/13/23 10:16 Urine Bacteria Rare /HPF (None Seen) 06/13/23 10:16 Ur Microscopic Review INDICATED 06/13/23 10:16 Urine Culture Comments NOT INDICATED 06/13/23 10:16 Nasal Adenovirus (PCR) NOT DETECTED 06/13/23 09:34 Nasal B. parapertussis DNA (PCR) NOT DETECTED 06/13/23 09:34 Nasal Coronavir 229E PCR NOT DETECTED 06/13/23 09:34 Nasal Coronavir HKU1 PCR NOT DETECTED 06/13/23 09:34 Nasal Coronavir NL63 PCR NOT DETECTED 06/13/23 09:34 Nasal Coronavir OC43 PCR NOT DETECTED 06/13/23 09:34 Nasal Enterovir/Rhinovir PCR DETECTED A 06/13/23 09:34 Nasal Influenza B PCR NOT DETECTED 06/13/23 09:34 Nasal Influenza A PCR NOT DETECTED 06/13/23 09:34 Nasal Parainfluen 1 PCR NOT DETECTED 06/13/23 09:34 Nasal Parainfluen 2 PCR NOT DETECTED 06/13/23 09:34 Nasal Parainfluen 3 PCR NOT DETECTED 06/13/23 09:34 Nasal Parainfluen 4 PCR NOT DETECTED 06/13/23 09:34 Nasal RSV (PCR) NOT DETECTED 06/13/23 09:34 Nasal Screen MRSA (PCR) NEGATIVE (NEGATIVE) 06/13/23 21:25 Nasal B.pertussis DNA PCR NOT DETECTED 06/13/23 09:34 Nasal C.pneumoniae (PCR) NOT DETECTED 06/13/23 09:34 Amos Human Metapneumo PCR NOT DETECTED 06/13/23 09:34 Nasal M.pneumoniae (PCR) NOT DETECTED 06/13/23 09:34 Nasal SARS-CoV-2 (PCR) NOT DETECTED 06/13/23 09:34 Urine Opiates Screen NEGATIVE (NEGATIVE) 06/13/23 10:16 Ur Oxycodone Screen NEGATIVE (NEGATIVE) 06/13/23 10:16 Urine Methadone Screen NEGATIVE (NEGATIVE) 06/13/23 10:16 Ur Propoxyphene Screen NEGATIVE (NEGATIVE) 06/13/23 10:16 Ur Barbiturates Screen NEGATIVE (NEGATIVE) 06/13/23 10:16 Ur Tricyclics Screen NEGATIVE (NEGATIVE) 06/13/23 10:16 Ur Phencyclidine Scrn NEGATIVE (NEGATIVE) 06/13/23 10:16 Ur Amphetamine Screen POSITIVE (NEGATIVE) H 06/13/23 10:16 U Methamphetamines Scrn POSITIVE (NEGATIVE) H 06/13/23 10:16 U Benzodiazepines Scrn NEGATIVE (NEGATIVE) 06/13/23 10:16 Urine Cocaine Screen NEGATIVE (NEGATIVE) 06/13/23 10:16 U Cannabinoids Screen NEGATIVE (NEGATIVE) 06/13/23 10:16 Sepsis Event Note (H) - Evaluation Current Stage of Sepsis: Sepsis Possible source of Sepsis: positive: Pulmonary
[2023-06-17] MEDS: SODIUM CHLORIDE 0.9% 1,000 ML IV SCH (21:19)
[2023-06-17] MEDS: guaiFENesin 600 MG TABLET PO SCH (21:35)
[2023-06-18] MEDS: SODIUM CHLORIDE FLUSH 0.9% 10 ML SYRINGE IVP SCH ×3 (00:57→17:19)
[2023-06-18] MEDS: VANCOMYCIN INJ 1 GM in SODIUM CHLORIDE 0.9% 250 ML IV SCH ×3 (01:00→17:19)
[2023-06-18 05:13] LABS: HIV SCREEN 4TH GENERATION Non Reactive (Non Reactive)
[2023-06-18] MEDS: oxyCODONE 5 MG TABLET PO PRN ×3 (05:50→19:18)
[2023-06-18 05:52] LABS: BASOPHILS # (AUTO) 0.1 10^3/uL (0.0-0.1); BASOPHILS % (AUTO) 0.4 %; EOSINOPHILS # (AUTO) 0.1 10^3/uL (0.0-0.7); EOSINOPHILS % (AUTO) 0.6 %; HCT - HEMATOCRIT 30.8 % (37.0-47.0); HGB - HEMOGLOBIN 8.1 g/dL (12.0-16.0); LYMPHOCYTES # (AUTO) 1.7 10^3/uL (1.5-3.5); LYMPHOCYTES % (AUTO) 10.5 %; MEAN CORPUSCULAR HEMOGLOBIN 18.2 pg (27.0-31.0); MEAN CORPUSCULAR HGB CONC 26.3 g/dL (32.0-36.0); MEAN CORPUSCULAR VOLUME 69.1 fL (81.0-99.0); MEAN PLATELET VOLUME 9.1 fL (7.9-10.8); MONOCYTES # (AUTO) 0.9 10^3/uL (0.0-1.0); MONOCYTES % (AUTO) 5.6 %; NEUTROPHILS # (AUTO) 12.9 10^3/uL (1.5-6.6); NEUTROPHILS % (AUTO) 80.7 %; NRBC ABSOLUTE COUNT (AUTO) 0.02 x10^3/uL; NUCLEATED RED BLOOD CELLS AUTO 0.1 /100WBC; RED BLOOD COUNT 4.46 10^6/uL (4.20-5.40); RED CELL DISTRIBUTION WIDTH 19.7 % (12.0-15.0)
[2023-06-18 05:56] LABS: PLT - PLATELET COUNT 912 10^3/uL (130-450); SLIDE REVIEW? Indicated
[2023-06-18 06:01] LABS: CALCIUM 8.7 mg/dL (8.5-10.3); CREATININE 0.4 mg/dL (0.6-1.3); POTASSIUM 4.2 mmol/L (3.5-4.5)
[2023-06-18 06:24] LABS: PLATELET ESTIMATE, MANUAL INCREASED (>450,000) (NORMAL)
[2023-06-18] MEDS: INSULIN LISPRO 300 UNIT/3 ML PEN SUBQ SCH ×7 (07:50→20:51)
[2023-06-18] MEDS: CEFEPIME 2 GM in SODIUM CHLORIDE 0.9% MINIBAG 100 ML IV SCH ×2 (08:52→20:44)
[2023-06-18] MEDS: guaiFENesin 600 MG TABLET PO SCH ×2 (08:53→20:44)
[2023-06-18] MEDS: ENOXAPARIN 40 MG/0.4 ML SYRINGE SUBQ SCH (08:54)
[2023-06-18] MEDS: INSULIN GLARGINE-YFGN 300 UNIT/3 ML PEN SUBQ SCH ×2 (09:00→20:50)
[2023-06-18] MEDS: SODIUM CHLORIDE 1 GM TABLET PO SCH (10:15)
[2023-06-18] MEDS: guaiFENesin 100 MG/5 ML UDC PO PRN (16:45)
[2023-06-18 17:05] LABS: VANCOMYCIN,TROUGH 9.8 ug/mL
--- NOTE | 2023-06-18 19:08 | PROVIDER PROGRESS NOTE ---
Assessment/Plan - Problem List (1) CAP (community acquired pneumonia) Qualifiers: Laterality: right Assessment/Plan: Patient still has cough and pleuritic pain, now bringing up phlegm. Lleukocytosis has improved daily, all labs were reviewed. Patient shortness of breath is less significant, oxygen needs are about 2 to 3 L at rest. She coughed out purulent sputum more frequently since 06/16. Repeat CXR, still shows right side infiltrate plus effusion, but chest US shows the fluid is not enough to drain. I updated the pt Plan: Will continue with empiric iv cefepime and vancomycin to cover Pseud and MRSA. Due to sputum with mixed gram-positive and gram-negative bacteria, a repeat sputum culture ordered, await results (2) Newly diagnosed diabetes Assessment/Plan: Glucose is still very elevated due to infection in the 300>> 200's, even after adjust the insulin dose. Educated patient on diet, and insulin use Plan Await Insulin Ab test and Glutamic Acid Decarboxylase Autoantibodies test We will continue increase that dose until patient meets the goal of 150-180 during hospital stay Patient needs to follow up as outpatient for DM mangement (3) Hyperglycemia Assessment/Plan: Not achieving the goal yet, will continue toadjust insulin dose (4) Hyponatremia I suspect pseudohyponatremia given the very high serum glu levels. Also she may be volume depleted since she presented with sepsis Plan: Free water restriction will be stopped and management will be changed to giving NS and/or salt tablet (5) Acute respiratory failure with hypoxia Qualifiers: Chronicity: acute Respiratory failure complication: hypoxia Qualified Code(s): J96.01 - Acute respiratory failure with hypoxia Assessment/Plan: Slowly improving She still needs 2-3 L oxygen at rest to achieve 92% sat (6) Thrombocytosis Assessment/Plan: Climbing plt count suggests ongoing infection Since she is bringing up sputum, likely breaking up the consolidation, hopefully the plt count will start to show improvement Plan: Cont broad spectrum antibx and follow CBC daily (7) Elevated d-dimer Assessment/Plan: Persistent, likely it is related to sepsis, tissue ischemia Also, patient is having ongoing menstrual cycle, almost finish the cycle. She did report the flow seems less than usual. She is not . However, can not rule out vascular abnormalities, or cancer related procoagulant. Plan: Once her infection is better, may check again (8) Iron deficiency Anemia Qualifiers: Anemia type: unspecified type Qualified Code(s): D64.9 - Anemia, unspecified Assessment/Plan: Low iron, level of 11. With acute infection, holding iron supplement Plan to give iron after infection is controlled (9) Substance abuse Assessment/Plan: She had a positive Utox with meth and amphetamine. However, she told me she stopped using drugs in her 30's. Recommended patient to quit those substance. SW consult (10) Obesity Assessment/Plan: Needs diet adjustments for obesity and for DM (11) Sepsis Qualifiers: Severe sepsis acute organ dysfunction type: acute respiratory failure Acute respiratory failure type: with hypoxia Severe sepsis shock status: without septic shock Assessment/Plan: Resolved - Current Meds Current Meds: Current Medications Generic Name Dose Route Start Last Admin Trade Name Freq PRN Reason Stop Dose Admin Enoxaparin Sodium 40 mg 06/14/23 09:00 06/18/23 08:54 Enoxaparin 40 Mg/0.4 Ml Syringe SUBQ 40 mg DAILY ROLO Administration Guaifenesin 200 mg 06/14/23 20:10 06/18/23 16:45 Guaifenesin 100 Mg/5 Ml Udc PO 200 mg Q4H PRN Administration Cough Guaifenesin 600 mg 06/17/23 21:00 06/18/23 08:53 Guaifenesin 600 Mg Tablet PO 600 mg BID ROLO Administration Cefepime HCl 2 gm/ Sodium 100 mls @ 200 mls/hr 06/13/23 21:00 06/18/23 09:26 Chloride IV Infused BID ROLO Infusion Vancomycin HCl 1 gm/ Sodium 250 mls @ 167 mls/hr 06/16/23 01:00 06/18/23 17:19 Chloride IV 167 mls/hr Q8H ROLO Administration Sodium Chloride 1,000 mls @ 50 mls/hr 06/17/23 21:00 06/18/23 17:20 Normal Saline 0.9% IV Infused .Q20H ROLO Infusion Insulin Human Lispro 3 - 11 unit 06/15/23 12:00 06/18/23 16:46 Insulin Lispro 300 Unit/3 Ml Pen SUBQ 7 unit 0800,1200,1700,2100 ROLO Administration Protocol Insulin Human Lispro 10 unit 06/18/23 12:00 06/18/23 16:47 Insulin Lispro 300 Unit/3 Ml Pen SUBQ 10 unit TIDWM ROLO Administration Protocol Oxycodone HCl 5 mg 06/13/23 16:16 06/18/23 13:41 Oxycodone 5 Mg Tablet PO 5 mg Q4HR PRN Administration Pain 5 to 7 Sodium Chloride 10 ml 06/13/23 17:00 06/18/23 17:19 Sodium Chloride Flush 0.9% 10 Ml Syringe IVP Not Given 0100,0900,1700 ROLO Sodium Chloride 1 gm 06/18/23 10:00 06/18/23 10:15 Sodium Chloride 1 Gm Tablet PO 1 gm DAILY ROLO Administration - Lab Result Fish Bone Diagrams: 06/21/23 05:17 06/21/23 05:17 - Additional Planning My Orders: My Active Orders 06/17/23 20:26 Miscellaenous Nursing Order [RC] QSHIFT 06/17/23 21:00 Sodium Chloride 0.9% [Normal Saline 0.9%] 1,000 ml IV 50 mls/hr guaiFENesin [Mucinex] 600 mg PO BID 06/18/23 10:00 Sodium Chloride [Salt Tab] 1 gm PO DAILY 06/18/23 12:00 Insulin Lispro [Humalog Kwikpen U-100] 10 unit SUBQ TIDWM 06/18/23 16:25 VANCOMYCIN TROUGH [CHEM] Timed 06/18/23 16:32 VANCOMYCIN PEAK [CHEM] Timed 06/18/23 21:00 Insulin Glargine-Yfgn [Semglee] 25 unit SUBQ BID 06/19/23 05:00 BMP - BASIC METABOLIC PANEL [CHEM] DAILYLAB CALCIUM [CHEM] DAILYLAB CBC - COMP BLD CT W/AUTO DIFF [HEME] DAILYLAB MAGNESIUM [CHEM] DAILYLAB PHOSPHORUS [CHEM] DAILYLAB 06/20/23 05:00 BMP - BASIC METABOLIC PANEL [CHEM] DAILYLAB CBC - COMP BLD CT W/AUTO DIFF [HEME] DAILYLAB 06/21/23 05:00 BMP - BASIC METABOLIC PANEL [CHEM] DAILYLAB CBC - COMP BLD CT W/AUTO DIFF [HEME] DAILYLAB 06/22/23 05:00 BMP - BASIC METABOLIC PANEL [CHEM] DAILYLAB CBC - COMP BLD CT W/AUTO DIFF [HEME] DAILYLAB Subjective - Subjective Patient Reports: Other (Coughing more and able to bring up phlegm, yellow green. Coughing causes pain below right lateral rib cage) Objective Vital Signs: Vital Signs - 24 hr 06/17/23 06/17/23 06/18/23 20:39 22:45 00:15 Temperature 36.5 C 36.7 C Heart Rate [ 103 H 105 H Brachial] Respiratory 20 20 Rate Blood Pressure [Left Brachial artery] Blood Pressure 128/69 137/63 H [Right Brachial artery] O2 Saturation 93 92 If not protocol 2 2 2 : Oxygen Flow, liters/minute 06/18/23 06/18/23 06/18/23 04:26 07:18 07:30 Temperature 36.7 C 36.8 C Heart Rate [ 102 H 99 Brachial] Respiratory 18 20 Rate Blood Pressure [Left Brachial artery] Blood Pressure 139/81 H 117/67 [Right Brachial artery] O2 Saturation 92 91 L If not protocol 2 2 2 : Oxygen Flow, liters/minute 06/18/23 06/18/23 13:43 16:00 Temperature 36.4 C L 36.8 C Heart Rate [ 108 H 109 H Brachial] Respiratory 20 20 Rate Blood Pressure 135/74 H [Left Brachial artery] Blood Pressure 134/73 H [Right Brachial artery] O2 Saturation 97 93 If not protocol 2 2 : Oxygen Flow, liters/minute Oxygen O2 Source Nasal cannula Oxygen Flow Rate 2 I&O (Last 24 Hrs): Intake and Output Totals x24h 06/16/23 06/17/23 06/18/23 23:59 23:59 23:59 Intake Total 2166 1940 2390 Output Total 2900 2440 2400 Balance -734 -500 -10 General: Alert, Oriented x3, Mild distress (from pleuritic pain) HEENT: EOMI, Mucous membr. moist/pink Neck: Supple, No JVD Neuro: Alert, Non Focal Cardiovascular: Regular rate, No murmurs Respiratory: Rales (R base) Abdomen: Soft, No tenderness Extremities: No clubbing, No edema, No tenderness/swelling Skin: No rashes - Results Results: Laboratory Results WBC 16.0 x10^3/uL (4.8-10.8) H 06/18/23 05:43 RBC 4.46 10^6/uL (4.20-5.40) 06/18/23 05:43 Hgb 8.1 g/dL (12.0-16.0) L 06/18/23 05:43 Hct 30.8 % (37.0-47.0) L 06/18/23 05:43 MCV 69.1 fL (81.0-99.0) L 06/18/23 05:43 MCH 18.2 pg (27.0-31.0) L 06/18/23 05:43 MCHC 26.3 g/dL (32.0-36.0) L 06/18/23 05:43 RDW 19.7 % (12.0-15.0) H 06/18/23 05:43 Plt Count 912 10^3/uL (130-450) H* 06/18/23 05:43 MPV 9.1 fL (7.9-10.8) 06/18/23 05:43 Neut # (Auto) 12.9 10^3/uL (1.5-6.6) H 06/18/23 05:43 Lymph # (Auto) 1.7 10^3/uL (1.5-3.5) 06/18/23 05:43 [place] # (Auto) 0.9 10^3/uL (0.0-1.0) 06/18/23 05:43 Eos # (Auto) 0.1 10^3/uL (0.0-0.7) 06/18/23 05:43 Baso # (Auto) 0.1 10^3/uL (0.0-0.1) 06/18/23 05:43 Absolute Nucleated RBC 0.02 x10^3/uL 06/18/23 05:43 Total Counted 100 06/15/23 16:28 Band Neuts % (Manual) 0 % (0-10) 06/15/23 16:28 Abnorm Lymph % (Manual) 0 % 06/15/23 16:28 Nucleated RBC % 0.1 /100WBC 06/18/23 05:43 Neutrophils # (Manual) 17.7 10^3/uL (1.5-6.6) H 06/15/23 16:28 Lymphocytes # (Manual) 1.5 10^3/uL (1.5-3.5) 06/15/23 16:28 Monocytes # (Manual) 2.9 10^3/uL (0.0-1.0) H 06/15/23 16:28 Eosinophils # (Manual) 0.0 10^3/uL (0-0.7) 06/15/23 16:28 Basophils # (Manual) 0.0 10^3/uL (0-0.1) 06/15/23 16:28 Nucleated RBCs 3 % 06/15/23 16: Differential Comment MANUAL DIFFERENTIAL 06/15/23 16: Manual Slide Review Indicated 06/18/23 05:43 WBC Morphology NORMAL APPEARANCE (NORMAL) 06/15/23 07:11 Platelet Estimate INCREASED (>450,000) (NORMAL) 06/18/23 05:43 Platelet Morphology NORMAL APPEARANCE (NORMAL) 06/15/23 16:28 RBC Morph Micro Appear 1+ ANISOCYTOSIS (NORMAL) 2+ MICROCYTOSIS (NORMAL) 2+ HYPOCHROMASIA (NORMAL) 1+ POLYCHROMASIA (NORMAL) 06/18/23 05:43 RBC Morph Micro Appear 1+ ANISOCYTOSIS (NORMAL) 2+ MICROCYTOSIS (NORMAL) 2+ HYPOCHROMASIA (NORMAL) 1+ POLYCHROMASIA (NORMAL) 06/18/23 05:43 RBC Morph Micro Appear 1+ ANISOCYTOSIS (NORMAL) 2+ MICROCYTOSIS (NORMAL) 2+ HYPOCHROMASIA (NORMAL) 1+ POLYCHROMASIA (NORMAL) 06/18/23 05:43 RBC Morph Micro Appear 1+ ANISOCYTOSIS (NORMAL) 2+ MICROCYTOSIS (NORMAL) 2+ HYPOCHROMASIA (NORMAL) 1+ POLYCHROMASIA (NORMAL) 06/18/23 05:43 PT 16.9 secs (9.9-12.6) H 06/16/23 07:49 INR 1.6 (0.8-1.2) H 06/16/23 07:49 D-Dimer > 1050.0 ng/mL (200.0-255.0) H 06/16/23 07:49 VBG pH 7.458 (7.31-7.41) H 06/15/23 16:28 VBG pCO2 39.0 mmHg (41-51) L 06/15/23 16:28 VBG pO2 57.7 mmHg (25-47) H 06/15/23 16:28 VBG HCO3 27.0 mmol/L (23-28) 06/15/23 16:28 VBG Total CO2 28.2 mmol/L (24-29) 06/15/23 16:28 VBG O2 Saturation 91.0 % (60-80) H 06/15/23 16:28 VBG Base Excess 3.0 mmol/L (-2 - +2) H 06/15/23 16:28 Sodium 128 mmol/L (135-145) L 06/18/23 05:43 Potassium 4.2 mmol/L (3.5-4.5) 06/18/23 05:43 Chloride 96 mmol/L (101-111) L 06/18/23 05:43 Carbon Dioxide 28 mmol/L (21-32) 06/18/23 05:43 Anion Gap 4.0 (6-13) L 06/18/23 05:43 BUN 8 mg/dL (6-20) 06/18/23 05:43 Creatinine 0.4 mg/dL (0.6-1.3) L 06/18/23 05:43 Estimated GFR (MDRD) 174 (>89) 06/18/23 05:43 Glucose 343 mg/dL (74-104) H 06/18/23 05:43 POC Whole Bld Glucose 268 mg/dL (70 - 100) H 06/18/23 16:44 Estimat Average Glucose 332 mg/dL (70-100) H 06/14/23 05:57 Hemoglobin A1c % 13.2 % (4.27-6.07) H 06/14/23 05:57 Lactic Acid 1.6 mmol/L (0.5-2.2) 06/13/23 09:34 Calcium 8.7 mg/dL (8.5-10.3) 06/18/23 05:43 Magnesium 1.7 mg/dL (1.7-2.3) 06/13/23 09:34 Iron 11 ug/dL (50-212) L 06/16/23 07:49 TIBC 314 ug/dL (250-450) 06/16/23 07:49 % Saturation 4 % (20-50) L 06/16/23 07:49 Transferrin 224 mg/dL (203-362) 06/16/23 07:49 Total Bilirubin 0.5 mg/dL (0.2-1.0) 06/13/23 09:34 AST 24 IU/L (10-42) 06/13/23 09:34 ALT 20 IU/L (10-60) 06/13/23 09:34 Alkaline Phosphatase 316 IU/L (42-121) H 06/13/23 09:34 Total Creatine Kinase < 10 IU/L (30-223) L 06/13/23 09:34 B-Natriuretic Peptide 28 pg/mL (5-100) 06/17/23 05:25 Total Protein 8.2 g/dL (6.4-8.9) 06/13/23 09:34 Albumin 2.9 g/dL (3.2-5.5) L 06/13/23 09:34 Globulin 5.3 g/dL (2.1-4.2) H 06/13/23 09:34 Albumin/Globulin Ratio 0.5 (1.0-2.2) L 06/13/23 09:34 Lipase 13 U/L (11-82) 06/13/23 09:34 Vitamin B12 1455 pg/mL (180-914) H 06/16/23 07:49 Folate 11.3 ng/mL (5.90 - >24.8) 06/16/23 07:49 Urine Color YELLOW 06/13/23 10:16 Urine Clarity HAZY (CLEAR) 06/13/23 10:16 Urine pH 6.0 PH (5.0-7.5) 06/13/23 10:16 Ur Specific [place] <=1.005 (1.002-1.030) 06/13/23 10:16 Urine Protein NEGATIVE mg/dL (NEGATIVE) 06/13/23 10:16 Urine Glucose (UA) >=1000 mg/dL (NEGATIVE) H 06/13/23 10:16 Urine Ketones TRACE mg/dL (NEGATIVE) 06/13/23 10:16 Urine Occult Blood LARGE (NEGATIVE) H 06/13/23 10:16 Urine Nitrite NEGATIVE (NEGATIVE) 06/13/23 10:16 Urine Bilirubin NEGATIVE (NEGATIVE) 06/13/23 10:16 Urine Urobilinogen 4 E.U./dL (NORMAL) H 06/13/23 10:16 Ur Leukocyte Esterase NEGATIVE (NEGATIVE) 06/13/23 10:16 Urine RBC 0-5 /HPF (0-5) 06/13/23 10:16 Urine WBC 0-3 /HPF (0-5) 06/13/23 10:16 Ur Squamous Epith Cells FEW Squamous (<= Few) 06/13/23 10:16 Urine Bacteria Rare /HPF (None Seen) 06/13/23 10:16 Ur Microscopic Review INDICATED 06/13/23 10:16 Urine Culture Comments NOT INDICATED 06/13/23 10:16 Urine Sodium 53.0 mmol/L 06/17/23 21:40 Nasal Adenovirus (PCR) NOT DETECTED 06/13/23 09:34 Nasal B. parapertussis DNA (PCR) NOT DETECTED 06/13/23 09:34 Nasal Coronavir 229E PCR NOT DETECTED 06/13/23 09:34 Nasal Coronavir HKU1 PCR NOT DETECTED 06/13/23 09:34 Nasal Coronavir NL63 PCR NOT DETECTED 06/13/23 09:34 Nasal Coronavir OC43 PCR NOT DETECTED 06/13/23 09:34 Nasal Enterovir/Rhinovir PCR DETECTED A 06/13/23 09:34 Nasal Influenza B PCR NOT DETECTED 06/13/23 09:34 Nasal Influenza A PCR NOT DETECTED 06/13/23 09:34 Nasal Parainfluen 1 PCR NOT DETECTED 06/13/23 09:34 Nasal Parainfluen 2 PCR NOT DETECTED 06/13/23 09:34 Nasal Parainfluen 3 PCR NOT DETECTED 06/13/23 09:34 Nasal Parainfluen 4 PCR NOT DETECTED 06/13/23 09:34 Nasal RSV (PCR) NOT DETECTED 06/13/23 09:34 Nasal Screen MRSA (PCR) NEGATIVE (NEGATIVE) 06/13/23 21:25 Nasal B.pertussis DNA PCR NOT DETECTED 06/13/23 09:34 Nasal C.pneumoniae (PCR) NOT DETECTED 06/13/23 09:34 Amos Human Metapneumo PCR NOT DETECTED 06/13/23 09:34 Nasal M.pneumoniae (PCR) NOT DETECTED 06/13/23 09:34 Nasal SARS-CoV-2 (PCR) NOT DETECTED 06/13/23 09:34 Vancomycin Trough 9.8 ug/mL 06/18/23 16:25 Urine Opiates Screen NEGATIVE (NEGATIVE) 06/13/23 10:16 Ur Oxycodone Screen NEGATIVE (NEGATIVE) 06/13/23 10:16 Urine Methadone Screen NEGATIVE (NEGATIVE) 06/13/23 10:16 Ur Propoxyphene Screen NEGATIVE (NEGATIVE) 06/13/23 10:16 Ur Barbiturates Screen NEGATIVE (NEGATIVE) 06/13/23 10:16 Ur Tricyclics Screen NEGATIVE (NEGATIVE) 06/13/23 10:16 Ur Phencyclidine Scrn NEGATIVE (NEGATIVE) 06/13/23 10:16 Ur Amphetamine Screen POSITIVE (NEGATIVE) H 06/13/23 10:16 U Methamphetamines Scrn POSITIVE (NEGATIVE) H 06/13/23 10:16 U Benzodiazepines Scrn NEGATIVE (NEGATIVE) 06/13/23 10:16 Urine Cocaine Screen NEGATIVE (NEGATIVE) 06/13/23 10:16 U Cannabinoids Screen NEGATIVE (NEGATIVE) 06/13/23 10:16 HIV 1&2 Ab/P24 Ag 4thGn Non Reactive (Non Reactive) 06/17/23 09:10 Sepsis Event Note (H) - Evaluation Current Stage of Sepsis: Sepsis Possible source of Sepsis: positive: Pulmonary
[2023-06-18] MEDS: SODIUM CHLORIDE 0.9% 1,000 ML IV SCH (20:44)
[2023-06-19] MEDS: VANCOMYCIN INJ 1 GM in SODIUM CHLORIDE 0.9% 250 ML IV SCH ×2 (00:38→09:35)
[2023-06-19] MEDS: guaiFENesin 100 MG/5 ML UDC PO PRN ×3 (00:39→19:36)
[2023-06-19] MEDS: SODIUM CHLORIDE FLUSH 0.9% 10 ML SYRINGE IVP SCH ×4 (00:39→23:47)
[2023-06-19] MEDS: oxyCODONE 5 MG TABLET PO PRN ×2 (00:44→17:23)
[2023-06-19 06:00] LABS: BASOPHILS # (AUTO) 0.1 10^3/uL (0.0-0.1); BASOPHILS % (AUTO) 0.4 %; EOSINOPHILS # (AUTO) 0.1 10^3/uL (0.0-0.7); EOSINOPHILS % (AUTO) 0.9 %; HGB - HEMOGLOBIN 7.9 g/dL (12.0-16.0); LYMPHOCYTES # (AUTO) 1.6 10^3/uL (1.5-3.5); LYMPHOCYTES % (AUTO) 11.2 %; MEAN CORPUSCULAR HEMOGLOBIN 17.8 pg (27.0-31.0); MEAN CORPUSCULAR HGB CONC 25.5 g/dL (32.0-36.0); MONOCYTES # (AUTO) 0.8 10^3/uL (0.0-1.0); MONOCYTES % (AUTO) 5.9 %; NEUTROPHILS # (AUTO) 11.1 10^3/uL (1.5-6.6); NEUTROPHILS % (AUTO) 80.2 %; RED BLOOD COUNT 4.43 10^6/uL (4.20-5.40); RED CELL DISTRIBUTION WIDTH 19.9 % (12.0-15.0); WHITE BLOOD COUNT 13.8 x10^3/uL (4.8-10.8)
[2023-06-19 06:06] LABS: PLT - PLATELET COUNT 947 10^3/uL (130-450)
[2023-06-19 06:26] LABS: CALCIUM 8.7 mg/dL (8.5-10.3); CREATININE 0.3 mg/dL (0.6-1.3); MAGNESIUM 1.6 mg/dL (1.7-2.3); PHOSPHORUS 2.3 mg/dL (2.5-5.0); POTASSIUM 4.1 mmol/L (3.5-4.5)
[2023-06-19] MEDS: CEFEPIME 2 GM in SODIUM CHLORIDE 0.9% MINIBAG 100 ML IV SCH ×2 (07:56→21:00)
[2023-06-19] MEDS: guaiFENesin 600 MG TABLET PO SCH ×2 (08:00→21:04)
[2023-06-19] MEDS: SODIUM CHLORIDE 1 GM TABLET PO SCH (08:00)
[2023-06-19] MEDS: INSULIN LISPRO 300 UNIT/3 ML PEN SUBQ SCH ×7 (08:02→21:04)
[2023-06-19] MEDS: INSULIN GLARGINE-YFGN 300 UNIT/3 ML PEN SUBQ SCH ×2 (08:04→21:06)
[2023-06-19] MEDS: ENOXAPARIN 40 MG/0.4 ML SYRINGE SUBQ SCH (08:08)
--- NOTE | 2023-06-19 11:56 | PHARMACY PROGRESS NOTE ---
- Therapy Status Vancomycin regimen day #: 5 Therapy status: Trough subtherapeutic (VANCO STARTED 06/15/23. CURRENTLY ON 1Gq 8H. TR=9.8, PK=6.2. LAST DOSE 9AM 06/19/23. WILL CHANGE TO 1.90HK07C AND TARGET AUC/EMH=026.) Basis for treatment: Empirical Treatment indication: MRSA/PSA PNA Trough goal: AUC/JORGE =446 - JES Risk Risk level for Acute Kidney Injury: Moderate Acute Kidney Injury risk factors: Wt >100kg or BMI >40, Goal trough >15 - Monitoring and Recommendation Clinical response to treatment: I&O Previous 24 hours 06/17/23 06/18/23 06/19/23 23:59 23:59 23:59 Intake Total 1940 3622 928.333 Output Total 2449 4305 4250 Balance -500 147 -3321.667 Lab Results 06/19/23 06/18/23 06/17/23 05:48 05:43 05:25 BUN 8 8 9 Creatinine 0.3 L 0.4 L 0.4 L Estimated GFR (MDRD) 243 174 174 06/16/23 06/15/23 06/15/23 07:49 16:28 07:11 BUN 9 12 16 Creatinine 0.4 L 0.4 L 0.4 L Estimated GFR (MDRD) 174 174 174 06/14/23 06/13/23 05:57 09:34 BUN 20 12 Creatinine 0.4 L 0.5 L Estimated GFR (MDRD) 174 135 Vancomycin Monitoring 06/18/23 06/18/23 19:05 16:25 Vancomycin Peak 26.2 Vancomycin Trough 9.8 Cultures 06/16/23 10:30 Sputum Respiratory Culture - Final YEAST 06/13/23 09:59 Blood - Left Hand Blood Culture - Final NO GROWTH AFTER 5 DAYS 06/13/23 09:34 Blood - Left Iv Start Blood Culture - Final NO GROWTH AFTER 5 DAYS 06/14/23 15:10 Sputum Aspirate Respiratory Culture - Final Monitoring plan: Daily serum creatinine
[2023-06-19] MEDS: SODIUM CHLORIDE 0.9% 1,000 ML IV SCH (13:19)
[2023-06-19] MEDS: VANCOMYCIN INJ 1.75 GM in SODIUM CHLORIDE 0.9% 500 ML IV SCH (13:38)
--- NOTE | 2023-06-19 19:43 | PROVIDER PROGRESS NOTE ---
Assessment/Plan - Problem List (1) CAP (community acquired pneumonia) Qualifiers: Laterality: right Assessment/Plan: Patient still has cough and pleuritic pain, now bringing up phlegm. Leukocytosis has improved daily, but plt count elevated in mid-900's for days. All labs were reviewed. Patient shortness of breath is less significant, oxygen needs are about 1-2 at rest. She coughed out purulent sputum more frequently since 06/16. Repeat CXR, still showed right side infiltrate plus effusion, but chest US showed the fluid is not enough to drain. Another US was done and still small fluid, too small to drain. I updated the pt Plan: Will continue with empiric iv cefepime and vancomycin to cover Pseud and MRSA. I will try to contact ID at a larger hospital to review her case (2) Newly diagnosed diabetes Assessment/Plan: Glucose is still very elevated due to infection in the 300>> 200's, even after adjust the insulin dose. Educated patient on diet, and insulin use Plan Await Insulin Ab test and Glutamic Acid Decarboxylase Autoantibodies test I have been continuing to increase Insulin doses until patient meets the goal of 150-180 during hospital stay She has been learning how to self-inject, since she will likely need Insulin at discharge (3) Hyperglycemia Assessment/Plan: Not achieving the goal yet, will continue to adjust insulin dose (4) Hyponatremia Assessment/Plan: I suspect pseudohyponatremia given the very high serum glu levels. Also she may have been volume depleted since she presented with sepsis Plan: Salt use liberally (5) Acute respiratory failure with hypoxia Qualifiers: Chronicity: acute Respiratory failure complication: hypoxia Qualified Code(s): J96.01 - Acute respiratory failure with hypoxia Assessment/Plan: Slowly improving She still needs 1-2 L oxygen at rest to achieve 92% sat (6) Thrombocytosis Assessment/Plan: Climbing plt count suggests ongoing infection Since she is bringing up sputum, likely breaking up the consolidation, hopefully the plt count will start to show improvement Plan: Cont broad spectrum antibx and follow CBC daily I will try to contact ID at a larger hospital to review her case I updated pt that she cannot be discharged with a climbing/elevated plt count (7) Elevated d-dimer Assessment/Plan: Persistent, likely it is related to sepsis, tissue ischemia Also, patient is having ongoing menstrual cycle, almost finish the cycle. She did report the flow seems less than usual. She is not . However, can not rule out vascular abnormalities, or cancer related procoagulant . Plan: Once her infection is better, may check again (8) Iron deficiency Anemia Qualifiers: Anemia type: unspecified type Qualified Code(s): D64.9 - Anemia, unspecified Assessment/Plan: Low iron, level of 11. With acute infection, holding iron supplement Plan to give iron after infection is controlled (9) Substance abuse Assessment/Plan: She had a positive Utox with meth and amphetamine. However, she told me she stopped using drugs in her 30's. Recommended patient to quit those substance. SW consult (10) Obesity Assessment/Plan: Needs diet adjustments for obesity and for DM (11) Sepsis Qualifiers: Severe sepsis acute organ dysfunction type: acute respiratory failure Acute respiratory failure type: with hypoxia Severe sepsis shock status: without septic shock Assessment/Plan: Resolved - Current Meds Current Meds: Current Medications Generic Name Dose Route Start Last Admin Trade Name Freq PRN Reason Stop Dose Admin Enoxaparin Sodium 40 mg 06/14/23 09:00 06/19/23 08:08 Enoxaparin 40 Mg/0.4 Ml Syringe SUBQ 40 mg DAILY ROLO Administration Guaifenesin 200 mg 06/14/23 20:10 06/19/23 19:36 Guaifenesin 100 Mg/5 Ml Udc PO 200 mg Q4H PRN Administration Cough Guaifenesin 600 mg 06/17/23 21:00 06/19/23 08:00 Guaifenesin 600 Mg Tablet PO 600 mg BID ROLO Administration Cefepime HCl 2 gm/ Sodium 100 mls @ 200 mls/hr 06/13/23 21:00 06/19/23 13:20 Chloride IV Infused BID ROLO Infusion Sodium Chloride 1,000 mls @ 50 mls/hr 06/17/23 21:00 06/19/23 13:19 Normal Saline 0.9% IV 50 mls/hr .Q20H ROLO Administration Vancomycin HCl 1.75 gm/ Sodium 500 mls @ 250 mls/hr 06/19/23 14:00 06/19/23 15:40 Chloride IV Infused Q12H ROLO Infusion Insulin Human Lispro 3 - 11 unit 06/15/23 12:00 06/19/23 16:53 Insulin Lispro 300 Unit/3 Ml Pen SUBQ 7 unit 0800,1200,1700,2100 [facility] Administration Protocol Insulin Human Lispro 10 unit 06/18/23 12:00 06/19/23 16:54 Insulin Lispro 300 Unit/3 Ml Pen SUBQ 10 unit TIDWM ROLO Administration Protocol Oxycodone HCl 5 mg 06/13/23 16:16 06/19/23 17:23 Oxycodone 5 Mg Tablet PO 5 mg Q4HR PRN Administration Pain 5 to 7 Sodium Chloride 10 ml 06/13/23 17:00 06/19/23 16:54 Sodium Chloride Flush 0.9% 10 Ml Syringe IVP Not Given 0100,0900,1700 ROLO Sodium Chloride 1 gm 06/18/23 10:00 06/19/23 08:00 Sodium Chloride 1 Gm Tablet PO 1 gm DAILY ROLO Administration - Lab Result Fish Bone Diagrams: 06/21/23 05:17 06/21/23 05:17 - Additional Planning My Orders: My Active Orders 06/19/23 11:29 Diabetic Education [RC] ONCE Miscellaenous Nursing Order [RC] QSHIFT 06/19/23 14:00 Vancomycin Inj [Vancomycin] 1.75 gm Sodium Chloride 0.9% [Normal Saline 0.9%] 500 ml IV Q12H 06/19/23 21:00 Insulin Glargine-Yfgn [Semglee] 30 unit SUBQ BID 06/20/23 05:00 BMP - BASIC METABOLIC PANEL [CHEM] DAILYLAB CBC - COMP BLD CT W/AUTO DIFF [HEME] DAILYLAB MAGNESIUM [CHEM] DAILYLAB PHOSPHORUS [CHEM] DAILYLAB 06/21/23 05:00 BMP - BASIC METABOLIC PANEL [CHEM] DAILYLAB CBC - COMP BLD CT W/AUTO DIFF [HEME] DAILYLAB 06/22/23 05:00 BMP - BASIC METABOLIC PANEL [CHEM] DAILYLAB CBC - COMP BLD CT W/AUTO DIFF [HEME] DAILYLAB Subjective - Subjective Patient Reports: Cough (same productive yellow sputum), Pain (Still has R lateral rib cage pleuritic chest pain) Objective Vital Signs: Vital Signs - 24 hr 06/18/23 06/19/23 06/19/23 20:16 00:40 07:35 Temperature 36.8 C 36.8 C Heart Rate [ 102 H 102 H Brachial] Respiratory 16 20 Rate Blood Pressure 128/71 [Left Brachial artery] Blood Pressure 135/71 H [Right Brachial artery] O2 Saturation 94 94 If not protocol 2 2 2 : Oxygen Flow, liters/minute 06/19/23 06/19/23 07:38 15:40 Temperature 36.6 C 36.8 C Heart Rate [ 96 99 Brachial] Respiratory 20 16 Rate Blood Pressure 122/74 [Left Brachial artery] Blood Pressure 117/63 [Right Brachial artery] O2 Saturation 94 98 If not protocol 2 2 : Oxygen Flow, liters/minute Oxygen O2 Source Nasal cannula Oxygen Flow Rate 2 I&O (Last 24 Hrs): Intake and Output Totals x24h 06/17/23 06/18/23 06/19/23 23:59 23:59 23:59 Intake Total 1940 3622 3032.500 Output Total 2440 3475 5625 Balance -500 147 -2592.500 General: Alert, Oriented x3, No acute distress HEENT: EOMI, Mucous membr. moist/pink Neck: Supple, No JVD Neuro: Alert, Non Focal Cardiovascular: Regular rate, No murmurs Respiratory: No respiratory distress (at rest), Rales (R base) Abdomen: Soft, No tenderness, Other (obese) Extremities: No clubbing, No edema Skin: No rashes - Results Results: Laboratory Results WBC 13.8 x10^3/uL (4.8-10.8) H 06/19/23 05:48 RBC 4.43 10^6/uL (4.20-5.40) 06/19/23 05:48 Hgb 7.9 g/dL (12.0-16.0) L 06/19/23 05:48 Hct 31.0 % (37.0-47.0) L 06/19/23 05:48 MCV 70.0 fL (81.0-99.0) L 06/19/23 05:48 MCH 17.8 pg (27.0-31.0) L 06/19/23 05:48 MCHC 25.5 g/dL (32.0-36.0) L 06/19/23 05:48 RDW 19.9 % (12.0-15.0) H 06/19/23 05:48 Plt Count 947 10^3/uL (130-450) H* 06/19/23 05:48 MPV 9.0 fL (7.9-10.8) 06/19/23 05:48 Neut # (Auto) 11.1 10^3/uL (1.5-6.6) H 06/19/23 05:48 Lymph # (Auto) 1.6 10^3/uL (1.5-3.5) 06/19/23 05:48 [place] # (Auto) 0.8 10^3/uL (0.0-1.0) 06/19/23 05:48 Eos # (Auto) 0.1 10^3/uL (0.0-0.7) 06/19/23 05:48 Baso # (Auto) 0.1 10^3/uL (0.0-0.1) 06/19/23 05:48 Absolute Nucleated RBC 0.00 x10^3/uL 06/19/23 05:48 Total Counted 100 06/15/23 16:28 Band Neuts % (Manual) 0 % (0-10) 06/15/23 16:28 Abnorm Lymph % (Manual) 0 % 06/15/23 16:28 Nucleated RBC % 0.0 /100WBC 06/19/23 05:48 Neutrophils # (Manual) 17.7 10^3/uL (1.5-6.6) H 06/15/23 16:28 Lymphocytes # (Manual) 1.5 10^3/uL (1.5-3.5) 06/15/23 16:28 Monocytes # (Manual) 2.9 10^3/uL (0.0-1.0) H 06/15/23 16:28 Eosinophils # (Manual) 0.0 10^3/uL (0-0.7) 06/15/23 16:28 Basophils # (Manual) 0.0 10^3/uL (0-0.1) 06/15/23 16:28 Nucleated RBCs 3 % 06/15/23 16:28 Differential Comment MANUAL DIFFERENTIAL 06/15/23 16:28 Manual Slide Review Indicated 06/18/23 05:43 WBC Morphology NORMAL APPEARANCE (NORMAL) 06/15/23 07:11 Platelet Estimate INCREASED (>450,000) (NORMAL) 06/18/23 05:43 Platelet Morphology NORMAL APPEARANCE (NORMAL) 06/15/23 16:28 RBC Morph Micro Appear 1+ ANISOCYTOSIS (NORMAL) 2+ MICROCYTOSIS (NORMAL) 2+ HYPOCHROMASIA (NORMAL) 1+ POLYCHROMASIA (NORMAL) 06/18/23 05:43 RBC Morph Micro Appear 1+ ANISOCYTOSIS (NORMAL) 2+ MICROCYTOSIS (NORMAL) 2+ HYPOCHROMASIA (NORMAL) 1+ POLYCHROMASIA (NORMAL) 06/18/23 05:43 RBC Morph Micro Appear 1+ ANISOCYTOSIS (NORMAL) 2+ MICROCYTOSIS (NORMAL) 2+ H YPOCHROMASIA (NORMAL) 1+ POLYCHROMASIA (NORMAL) 06/18/23 05:43 RBC Morph Micro Appear 1+ ANISOCYTOSIS (NORMAL) 2+ MICROCYTOSIS (NORMAL) 2+ HYPOCHROMASIA (NORMAL) 1+ POLYCHROMASIA (NORMAL) 06/18/23 05:43 PT 16.9 secs (9.9-12.6) H 06/16/23 07:49 INR 1.6 (0.8-1.2) H 06/16/23 07:49 D-Dimer > 1050.0 ng/mL (200.0-255.0) H 06/16/23 07:49 VBG pH 7.458 (7.31-7.41) H 06/15/23 16:28 VBG pCO2 39.0 mmHg (41-51) L 06/15/23 16:28 VBG pO2 57.7 mmHg (25-47) H 06/15/23 16:28 VBG HCO3 27.0 mmol/L (23-28) 06/15/23 16:28 VBG Total CO2 28.2 mmol/L (24-29) 06/15/23 16:28 VBG O2 Saturation 91.0 % (60-80) H 06/15/23 16:28 VBG Base Excess 3.0 mmol/L (-2 - +2) H 06/15/23 16:28 Sodium 130 mmol/L (135-145) L 06/19/23 05:48 Potassium 4.1 mmol/L (3.5-4.5) 06/19/23 05:48 Chloride 97 mmol/L (101-111) L 06/19/23 05:48 Carbon Dioxide 28 mmol/L (21-32) 06/19/23 05:48 Anion Gap 5.0 (6-13) L 06/19/23 05:48 BUN 8 mg/dL (6-20) 06/19/23 05:48 Creatinine 0.3 mg/dL (0.6-1.3) L 06/19/23 05:48 Estimated GFR (MDRD) 243 (>89) 06/19/23 05:48 Glucose 289 mg/dL (74-104) H 06/19/23 05:48 POC Whole Bld Glucose 230 mg/dL (70 - 100) H 06/19/23 16:38 Estimat Average Glucose 332 mg/dL (70-100) H 06/14/23 05:57 Hemoglobin A1c % 13.2 % (4.27-6.07) H 06/14/23 05:57 Lactic Acid 1.6 mmol/L (0.5-2.2) 06/13/23 09:34 Calcium 8.7 mg/dL (8.5-10.3) 06/19/23 05:48 Phosphorus 2.3 mg/dL (2.5-5.0) L 06/19/23 05:48 Magnesium 1.6 mg/dL (1.7-2.3) L 06/19/23 05:48 Iron 11 ug/dL (50-212) L 06/16/23 07:49 TIBC 314 ug/dL (250-450) 06/16/23 07:49 % Saturation 4 % (20-50) L 06/16/23 07:49 Transferrin 224 mg/dL (203-362) 06/16/23 07:49 Total Bilirubin 0.5 mg/dL (0.2-1.0) 06/13/23 09:34 AST 24 IU/L (10-42) 06/13/23 09:34 ALT 20 IU/L (10-60) 06/13/23 09:34 Alkaline Phosphatase 316 IU/L (42-121) H 06/13/23 09:34 Total Creatine Kinase < 10 IU/L (30-223) L 06/13/23 09:34 B-Natriuretic Peptide 28 pg/mL (5-100) 06/17/23 05:25 Total Protein 8.2 g/dL (6.4-8.9) 06/13/23 09:34 Albumin 2.9 g/dL (3.2-5.5) L 06/13/23 09:34 Globulin 5.3 g/dL (2.1-4.2) H 06/13/23 09:34 Albumin/Globulin Ratio 0.5 (1.0-2.2) L 06/13/23 09:34 Lipase 13 U/L (11-82) 06/13/23 09:34 Vitamin B12 1455 pg/mL (180-914) H 06/16/23 07:49 Folate 11.3 ng/mL (5.90 - >24.8) 06/16/23 07:49 Urine Color YELLOW 06/13/23 10:16 Urine Clarity HAZY (CLEAR) 06/13/23 10:16 Urine pH 6.0 PH (5.0-7.5) 06/13/23 10:16 Ur Specific [place] <=1.005 (1.002-1.030) 06/13/23 10:16 Urine Protein NEGATIVE mg/dL (NEGATIVE) 06/13/23 10:16 Urine Glucose (UA) >=1000 mg/dL (NEGATIVE) H 06/13/23 10:16 Urine Ketones TRACE mg/dL (NEGATIVE) 06/13/23 10:16 Urine Occult Blood LARGE (NEGATIVE) H 06/13/23 10:16 Urine Nitrite NEGATIVE (NEGATIVE) 06/13/23 10:16 Urine Bilirubin NEGATIVE (NEGATIVE) 06/13/23 10:16 Urine Urobilinogen 4 E.U./dL (NORMAL) H 06/13/23 10:16 Ur Leukocyte Esterase NEGATIVE (NEGATIVE) 06/13/23 10:16 Urine RBC 0-5 /HPF (0-5) 06/13/23 10:16 Urine WBC 0-3 /HPF (0-5) 06/13/23 10:16 Ur Squamous Epith Cells FEW Squamous (<= Few) 06/13/23 10:16 Urine Bacteria Rare /HPF (None Seen) 06/13/23 10:16 Ur Microscopic Review INDICATED 06/13/23 10:16 Urine Culture Comments NOT INDICATED 06/13/23 10:16 Urine Sodium 53.0 mmol/L 06/17/23 21:40 Nasal Adenovirus (PCR) NOT DETECTED 06/13/23 09:34 Nasal B. parapertussis DNA (PCR) NOT DETECTED 06/13/23 09:34 Nasal Coronavir 229E PCR NOT DETECTED 06/13/23 09:34 Nasal Coronavir HKU1 PCR NOT DETECTED 06/13/23 09:34 Nasal Coronavir NL63 PCR NOT DETECTED 06/13/23 09:34 Nasal Coronavir OC43 PCR NOT DETECTED 06/13/23 09:34 Nasal Enterovir/Rhinovir PCR DETECTED A 06/13/23 09:34 Nasal Influenza B PCR NOT DETECTED 06/13/23 09:34 Nasal Influenza A PCR NOT DETECTED 06/13/23 09:34 Nasal Parainfluen 1 PCR NOT DETECTED 06/13/23 09:34 Nasal Parainfluen 2 PCR NOT DETECTED 06/13/23 09:34 Nasal Parainfluen 3 PCR NOT DETECTED 06/13/23 09:34 Nasal Parainfluen 4 PCR NOT DETECTED 06/13/23 09:34 Nasal RSV (PCR) NOT DETECTED 06/13/23 09:34 Nasal Screen MRSA (PCR) NEGATIVE (NEGATIVE) 06/13/23 21:25 Nasal B.pertussis DNA PCR NOT DETECTED 06/13/23 09:34 Nasal C.pneumoniae (PCR) NOT DETECTED 06/13/23 09:34 [place] Human Metapneumo PCR NOT DETECTED 06/13/23 09:34 Nasal M.pneumoniae (PCR) NOT DETECTED 06/13/23 09:34 Nasal SARS-CoV-2 (PCR) NOT DETECTED 06/13/23 09:34 Last Dose Date Not Reportable 06/18/23 19:05 Last Dose Time Not Reportable 06/18/23 19:05 Vancomycin Peak 26.2 ug/mL (20.0-40.0) 06/18/23 19:05 Vancomycin Trough 9.8 ug/mL 06/18/23 16:25 Urine Opiates Screen NEGATIVE (NEGATIVE) 06/13/23 10:16 Ur Oxycodone Screen NEGATIVE (NEGATIVE) 06/13/23 10:16 Urine Methadone Screen NEGATIVE (NEGATIVE) 06/13/23 10:16 Ur Propoxyphene Screen NEGATIVE (NEGATIVE) 06/13/23 10:16 Ur Barbiturates Screen NEGATIVE (NEGATIVE) 06/13/23 10:16 Ur Tricyclics Screen NEGATIVE (NEGATIVE) 06/13/23 10:16 Ur Phencyclidine Scrn NEGATIVE (NEGATIVE) 06/13/23 10:16 Ur Amphetamine Screen POSITIVE (NEGATIVE) H 06/13/23 10:16 U Methamphetamines Scrn POSITIVE (NEGATIVE) H 06/13/23 10:16 U Benzodiazepines Scrn NEGATIVE (NEGATIVE) 06/13/23 10:16 Urine Cocaine Screen NEGATIVE (NEGATIVE) 06/13/23 10:16 U Cannabinoids Screen NEGATIVE (NEGATIVE) 06/13/23 10:16 HIV 1&2 Ab/P24 Ag 4thGn Non Reactive (Non Reactive) 06/17/23 09:10 Sepsis Event Note (H) - Evaluation Current Stage of Sepsis: Sepsis Possible source of Sepsis: positive: Pulmonary
[2023-06-20] MEDS: SODIUM CHLORIDE 0.9% 1,000 ML IV SCH (00:23)
[2023-06-20] MEDS: VANCOMYCIN INJ 1.75 GM in SODIUM CHLORIDE 0.9% 500 ML IV SCH ×2 (01:52→14:07)
[2023-06-20 06:06] LABS: BASOPHILS # (AUTO) 0.1 10^3/uL (0.0-0.1); BASOPHILS % (AUTO) 0.4 %; EOSINOPHILS # (AUTO) 0.1 10^3/uL (0.0-0.7); EOSINOPHILS % (AUTO) 0.9 %; HCT - HEMATOCRIT 31.1 % (37.0-47.0); LYMPHOCYTES # (AUTO) 1.7 10^3/uL (1.5-3.5); LYMPHOCYTES % (AUTO) 14.5 %; MEAN CORPUSCULAR HEMOGLOBIN 18.1 pg (27.0-31.0); MEAN CORPUSCULAR HGB CONC 25.7 g/dL (32.0-36.0); MEAN CORPUSCULAR VOLUME 70.5 fL (81.0-99.0); MEAN PLATELET VOLUME 9.2 fL (7.9-10.8); MONOCYTES # (AUTO) 0.6 10^3/uL (0.0-1.0); MONOCYTES % (AUTO) 5.3 %; NEUTROPHILS # (AUTO) 9.3 10^3/uL (1.5-6.6); NEUTROPHILS % (AUTO) 77.6 %; RED BLOOD COUNT 4.41 10^6/uL (4.20-5.40)
[2023-06-20 06:17] LABS: SLIDE REVIEW? Indicated
[2023-06-20 06:20] LABS: CREATININE 0.4 mg/dL (0.6-1.3); MAGNESIUM 1.7 mg/dL (1.7-2.3); POTASSIUM 4.2 mmol/L (3.5-4.5)
[2023-06-20 06:22] LABS: PLT - PLATELET COUNT 1034 10^3/uL (130-450)
[2023-06-20 06:44] LABS: PLATELET ESTIMATE, MANUAL INCREASED (>450,000) (NORMAL)
[2023-06-20] MEDS: CEFEPIME 2 GM in SODIUM CHLORIDE 0.9% MINIBAG 100 ML IV SCH ×2 (08:21→20:56)
[2023-06-20] MEDS: ENOXAPARIN 40 MG/0.4 ML SYRINGE SUBQ SCH (08:21)
[2023-06-20] MEDS: INSULIN GLARGINE-YFGN 300 UNIT/3 ML PEN SUBQ SCH ×2 (08:22→20:56)
[2023-06-20] MEDS: INSULIN LISPRO 300 UNIT/3 ML PEN SUBQ SCH ×7 (08:23→20:56)
[2023-06-20] MEDS: SODIUM CHLORIDE FLUSH 0.9% 10 ML SYRINGE IVP SCH ×2 (08:24→17:21)
[2023-06-20] MEDS: guaiFENesin 600 MG TABLET PO SCH ×2 (08:24→20:56)
[2023-06-20] MEDS: SODIUM CHLORIDE 1 GM TABLET PO SCH (08:26)
--- NOTE | 2023-06-20 09:55 | Ultrasound Report ---
PROCEDURE: Chest INDICATIONS: Fluid for Thoracentesis TECHNIQUE: Real-time scanning was performed, and a suitable site was marked by the arch cushion skiving machine operator for thoracentesis to be performed by the referring clinician. COMPARISON: Ultrasound chest on June 16, 2023. FINDINGS: A tiny pleural effusion is present, similar to prior day ultrasound. IMPRESSION: A tiny pleural effusion is present, similar to prior day ultrasound, insufficient for a thoracentesis . Reviewed by: Ricki Boggs MD on 06/20/2023 9:53 AM PDT Approved by: Ricki Boggs MD on 06/20/2023 9:53 AM PDT Station ID: [id number]
[2023-06-20] MEDS: guaiFENesin 100 MG/5 ML UDC PO PRN (16:33)
--- NOTE | 2023-06-20 19:17 | PROVIDER PROGRESS NOTE ---
Assessment/Plan - Problem List (1) CAP (community acquired pneumonia) Qualifiers: Laterality: right Assessment/Plan: Patient has less cough and no longer needs suppl O2. Leukocytosis has improved daily, but plt count elevated in mid-900's for days then today became >1.000K. All labs were reviewed. She coughed up purulent sputum more frequently since 06/16. The last CXR, still showed right side infiltrate plus effusion, and she has had 2 US showing the pleural fluid was too small to drain. I discussed her labs with ID at [facility] Dr García, who advised a CT chest and Dr García says these plt labs suggest an abscess CT chest was done (as well as Maxillo-facial CT given the bad teeth). The CT chest did show slt improved consolidation but also 2 cavitary lesions within the consolidation. Plan: Will continue with empiric iv cefepime and vancomycin to cover Pseud and MRSA. I will add anaerobic coverage, given the cavitary spaces seen on CT chest. I will reach out to larger facilities to have her transferred to a hospital that has IR and ID, Pulm (for poss bronchoscopy), and even Thoracic surg Patient wanted to go home. I updated the patient re: need for transfer (2) Thrombocytosis Assessment/Plan: Climbing plt count suggests ongoing infection. All labs reviewed, today plt count >1,100K The CT chest did show slt improved consolidation but 2 cavitary lesions within the consolidation. The maxillo-facial CT does show small areas of lucency suggesting abcsesses Plan: Will continue with empiric iv cefepime and vancomycin to cover Pseud and MRSA. I added anaerobic coverage, given the cavitary spaces seen on CT chest and in gums. I will reach out to larger facilities to have her transferred to a hospital that has IR and ID, Pulm (for poss bronchoscopy), and even Thoracic surg Patient wanted to go home. I updated the patient re: need for transfer (3) Newly diagnosed diabetes Assessment/Plan: Glucose is still very elevated due to infection in the 300>> 200's, even after adjust the insulin dose. Educated patient on diet, and insulin use Plan Await Insulin Ab test and Glutamic Acid Decarboxylase Autoantibodies test I have been continuing to increase Insulin doses until patient meets the goal of 150-180 during hospital stay She has been doing self-injections, since she will likely need Insulin at discharge (4) Hyperglycemia Assessment/Plan: Not achieving the goal yet due to ongoing inflammation/infection. Plan: will continue to adjust insulin dose (5) Hyponatremia Assessment/Plan: I suspected pseudohyponatremia given the very high serum glu levels. Also she may have been volume depleted since she presented with sepsis Improved with liberal salt use Plan: Following BMP daily (6) Elevated d-dimer Assessment/Plan: Persistent, likely it is related to sepsis, tissue ischemia Also, patient is having ongoing menstrual cycle, almost finish the cycle. She did report the flow seems less than usual. She is not . However, can not rule out vascular abnormalities, or cancer related procoagulant. Plan: Once her infection is better, may check again (7) Iron deficiency Anemia Qualifiers: Anemia type: unspecified type Qualified Code(s): D64.9 - Anemia, unspecified Assessment/Plan: Low iron, level of 11. With acute infection, holding iron supplement Plan to give iron after infection is controlled (8) Substance abuse Assessment/Plan: She had a positive Utox with meth and amphetamine. However, she told me she stopped using drugs in her 30's. Recommended patient to quit those substance. SW consult (9) Obesity Assessment/Plan: Needs dietary adjustments for obesity and for DM (10) Sepsis Qualifiers: Severe sepsis acute organ dysfunction type: acute respiratory failure Acute respiratory failure type: with hypoxia Severe sepsis shock status: without septic shock Assessment/Plan: Resolved (11) Acute respiratory failure with hypoxia Qualifiers: Chronicity: acute Respiratory failure complication: hypoxia Qualified Code(s): J96.01 - Acute respiratory failure with hypoxia Assessment/Plan: Resolved, she is on room air now at rest and with activity in her room - Current Meds Current Meds: Current Medications Generic Name Dose Route Start Last Admin Trade Name Freq PRN Reason Stop Dose Admin Albuterol/Ipratropium 3 ml 06/16/23 13:25 06/19/23 20:48 Ipratropium/Albuterol 3 Ml Neb INH 3 ml Q6HR PRN Administration Wheezing Enoxaparin Sodium 40 mg 06/14/23 09:00 06/20/23 08:21 Enoxaparin 40 Mg/0.4 Ml Syringe SUBQ 40 mg DAILY ROLO Administration Guaifenesin 200 mg 06/14/23 20:10 06/20/23 16:33 Guaifenesin 100 Mg/5 Ml Udc PO 200 mg Q4H PRN Administration Cough Guaifenesin 600 mg 06/17/23 21:00 06/20/23 08:24 Guaifenesin 600 Mg Tablet PO 600 mg BID ROLO Administration Cefepime HCl 2 gm/ Sodium 100 mls @ 200 mls/hr 06/13/23 21:00 06/20/23 11:33 Chloride IV Infused BID ROLO Infusion Sodium Chloride 1,000 mls @ 50 mls/hr 06/17/23 21:00 06/20/23 11:33 Normal Saline 0.9% IV 50 mls/hr .Q20H ROLO Infusion Vancomycin HCl 1.75 gm/ Sodium 500 mls @ 250 mls/hr 06/19/23 14:00 06/20/23 16:10 Chloride IV Infused Q12H ROLO Infusion Insulin Glargine-yfgn 30 unit 06/19/23 21:00 06/20/23 08:22 Insulin Glargine-Yfgn 300 Unit/3 Ml Pen SUBQ 30 unit BID ROLO Administration Insulin Human Lispro 3 - 11 unit 06/15/23 12:00 06/20/23 17:20 Insulin Lispro 300 Unit/3 Ml Pen SUBQ 5 unit 0800,1200,1700,2100 ROLO Administration Protocol Insulin Human Lispro 10 unit 06/18/23 12:00 06/20/23 17:20 Insulin Lispro 300 Unit/3 Ml Pen SUBQ 10 unit TIDWM ROLO Administration Protocol Oxycodone HCl 5 mg 06/13/23 16:16 06/19/23 17:23 Oxycodone 5 Mg Tablet PO 5 mg Q4HR PRN Administration Pain 5 to 7 Sodium Chloride 10 ml 06/13/23 17:00 06/20/23 17:21 Sodium Chloride Flush 0.9% 10 Ml Syringe IVP 10 ml 0100,0900,1700 ROLO Administration Sodium Chloride 1 gm 06/18/23 10:00 06/20/23 08:26 Sodium Chloride 1 Gm Tablet PO 1 gm DAILY ROLO Administration - Lab Result Fish Bone Diagrams: 06/21/23 05:17 06/21/23 05:17 - Additional Planning My Orders: My Active Orders 06/19/23 21:00 Insulin Glargine-Yfgn [Semglee] 30 unit SUBQ BID 06/20/23 15:01 CHEST WO [CT] Stat 06/20/23 15:44 MAXILLOFACIAL WO [CT] Stat 06/21/23 05:00 BMP - BASIC METABOLIC PANEL [CHEM] DAILYLAB CBC - COMP BLD CT W/AUTO DIFF [HEME] DAILYLAB 06/22/23 05:00 BMP - BASIC METABOLIC PANEL [CHEM] DAILYLAB CBC - COMP BLD CT W/AUTO DIFF [HEME] DAILYLAB Subjective - Subjective Patient Reports: Cough (Still coughing, less sputum comming up, less pleuritic chest pain with coughing) Nursing Reports: Other (Tolerating room air) Objective Vital Signs: Vital Signs - 24 hr 06/19/23 06/19/23 06/19/23 19:56 19:57 20:45 Temperature Heart Rate 103 H Heart Rate [ Brachial] Respiratory 16 Rate Blood Pressure [Left Brachial artery] Blood Pressure [Right Brachial artery] O2 Saturation 94 If not protocol 2 1 1 : Oxygen Flow, liters/minute 06/19/23 06/20/23 06/20/23 23:38 07:44 07:45 Temperature 36.9 C Heart Rate Heart Rate [ 102 H 99 Brachial] Respiratory 16 20 Rate Blood Pressure 119/73 [Left Brachial artery] Blood Pressure 132/72 H [Right Brachial artery] O2 Saturation 93 92 If not protocol 1.5 2 2 : Oxygen Flow, liters/minute 06/20/23 16:00 Temperature 36.5 C Heart Rate Heart Rate [ Brachial] Respiratory 18 Rate Blood Pressure 92/70 [Left Brachial artery] Blood Pressure [Right Brachial artery] O2 Saturation 97 If not protocol : Oxygen Flow, liters/minute Oxygen O2 Source Room air Oxygen Flow Rate 2 I&O (Last 24 Hrs): Intake and Output Totals x24h 06/18/23 06/19/23 06/20/23 23:59 23:59 23:59 Intake Total 3622 3982.500 4412.500 Output Total 3475 7800 4950 Balance 147 -3817.500 -537.500 General: Alert, Oriented x3, No acute distress HEENT: EOMI, Mucous membr. moist/pink, Other (Has several loose and missing teeth, several teeth have bloack at gum line and mildly tender) Neck: Supple, No JVD Neuro: Alert, Non Focal Cardiovascular: Regular rate, No murmurs Respiratory: No respiratory distress, Rales (minimal area still has rales in lateral R base) Abdomen: Soft, No tenderness, Other (obese) Extremities: No clubbing, No edema, No tenderness/swelling Skin: No rashes - Results Results: Laboratory Results WBC 12.0 x10^3/uL (4.8-10.8) H 06/20/23 05:07 RBC 4.41 10^6/uL (4.20-5.40) 06/20/23 05:07 Hgb 8.0 g/dL (12.0-16.0) L 06/20/23 05:07 Hct 31.1 % (37.0-47.0) L 06/20/23 05:07 MCV 70.5 fL (81.0-99.0) L 06/20/23 05:07 MCH 18.1 pg (27.0-31.0) L 06/20/23 05:07 MCHC 25.7 g/dL (32.0-36.0) L 06/20/23 05:07 RDW 20.0 % (12.0-15.0) H 06/20/23 05:07 Plt Count 1034 10^3/uL (130-450) H* 06/20/23 05:07 MPV 9.2 fL (7.9-10.8) 06/20/23 05:07 Neut # (Auto) 9.3 10^3/uL (1.5-6.6) H 06/20/23 05:07 Lymph # (Auto) 1.7 10^3/uL (1.5-3.5) 06/20/23 05:07 [place] # (Auto) 0.6 10^3/uL (0.0-1.0) 06/20/23 05:07 Eos # (Auto) 0.1 10^3/uL (0.0-0.7) 06/20/23 05:07 Baso # (Auto) 0.1 10^3/uL (0.0-0.1) 06/20/23 05:07 Absolute Nucleated RBC 0.00 x10^3/uL 06/20/23 05:07 Total Counted 100 06/15/23 16:28 Band Neuts % (Manual) 0 % (0-10) 06/15/23 16:28 Abnorm Lymph % (Manual) 0 % 06/15/23 16: Nucleated RBC % 0.0 /100WBC 06/20/23 05:07 Neutrophils # (Manual) 17.7 10^3/uL (1.5-6.6) H 06/15/23 16:28 Lymphocytes # (Manual) 1.5 10^3/uL (1.5-3.5) 06/15/23 16:28 Monocytes # (Manual) 2.9 10^3/uL (0.0-1.0) H 06/15/23 16:28 Eosinophils # (Manual) 0.0 10^3/uL (0-0.7) 06/15/23 16: Basophils # (Manual) 0.0 10^3/uL (0-0.1) 06/15/23 16:28 Nucleated RBCs 3 % 06/15/23 16: Differential Comment MANUAL DIFFERENTIAL 06/15/23 16: Manual Slide Review Indicated 06/20/23 05:07 WBC Morphology NORMAL APPEARANCE (NORMAL) 06/15/23 07:11 Platelet Estimate INCREASED (>450,000) (NORMAL) 06/20/23 05:07 Platelet Morphology NORMAL APPEARANCE (NORMAL) 06/15/23 16:28 RBC Morph Micro Appear 2+ ANISOCYTOSIS (NORMAL) 1+ MICROCYTOSIS (NORMAL) 1+ POLYCHROMASIA (NORMAL) 06/20/23 05:07 RBC Morph Micro Appear 2+ ANISOCYTOSIS (NORMAL) 1+ MICROCYTOSIS (NORMAL) 1+ POLYCHROMASIA (NORMAL) 06/20/23 05:07 RBC Morph Micro Appear 2+ ANISOCYTOSIS (NORMAL) 1+ MICROCYTOSIS (NORMAL) 1+ POLYCHROMASIA (NORMAL) 06/20/23 05:07 PT 16.9 secs (9.9-12.6) H 06/16/23 07:49 INR 1.6 (0.8-1.2) H 06/16/23 07:49 D-Dimer > 1050.0 ng/mL (200.0-255.0) H 06/16/23 07:49 VBG pH 7.458 (7.31-7.41) H 06/15/23 16:28 VBG pCO2 39.0 mmHg (41-51) L 06/15/23 16:28 VBG pO2 57.7 mmHg (25-47) H 06/15/23 16:28 VBG HCO3 27.0 mmol/L (23-28) 06/15/23 16:28 VBG Total CO2 28.2 mmol/L (24-29) 06/15/23 16:28 VBG O2 Saturation 91.0 % (60-80) H 06/15/23 16:28 VBG Base Excess 3.0 mmol/L (-2 - +2) H 06/15/23 16:28 Sodium 133 mmol/L (135-145) L 06/20/23 05:07 Potassium 4.2 mmol/L (3.5-4.5) 06/20/23 05:07 Chloride 98 mmol/L (101-111) L 06/20/23 05:07 Carbon Dioxide 30 mmol/L (21-32) 06/20/23 05:07 Anion Gap 5.0 (6-13) L 06/20/23 05:07 BUN 6 mg/dL (6-20) 06/20/23 05:07 Creatinine 0.4 mg/dL (0.6-1.3) L 06/20/23 05:07 Estimated GFR (MDRD) 174 (>89) 06/20/23 05:07 Glucose 266 mg/dL (74-104) H 06/20/23 05:07 POC Whole Bld Glucose 200 mg/dL (70 - 100) H 06/20/23 16:40 Estimat Average Glucose 332 mg/dL (70-100) H 06/14/23 05:57 Hemoglobin A1c % 13.2 % (4.27-6.07) H 06/14/23 05:57 Lactic Acid 1.6 mmol/L (0.5-2.2) 06/13/23 09:34 Calcium 9.0 mg/dL (8.5-10.3) 06/20/23 05:07 Phosphorus 3.0 mg/dL (2.5-5.0) 06/20/23 05:07 Magnesium 1.7 mg/dL (1.7-2.3) 06/20/23 05:07 Iron 11 ug/dL (50-212) L 06/16/23 07:49 TIBC 314 ug/dL (250-450) 06/16/23 07:49 % Saturation 4 % (20-50) L 06/16/23 07:49 Transferrin 224 mg/dL (203-362) 06/16/23 07:49 Total Bilirubin 0.5 mg/dL (0.2-1.0) 06/13/23 09:34 AST 24 IU/L (10-42) 06/13/23 09:34 ALT 20 IU/L (10-60) 06/13/23 09:34 Alkaline Phosphatase 316 IU/L (42-121) H 06/13/23 09:34 Total Creatine Kinase < 10 IU/L (30-223) L 06/13/23 09:34 B-Natriuretic Peptide 28 pg/mL (5-100) 06/17/23 05:25 Total Protein 8.2 g/dL (6.4-8.9) 06/13/23 09:34 Albumin 2.9 g/dL (3.2-5.5) L 06/13/23 09:34 Globulin 5.3 g/dL (2.1-4.2) H 06/13/23 09:34 Albumin/Globulin Ratio 0.5 (1.0-2.2) L 06/13/23 09:34 Lipase 13 U/L (11-82) 06/13/23 09:34 Vitamin B12 1455 pg/mL (180-914) H 06/16/23 07:49 Folate 11.3 ng/mL (5.90 - >24.8) 06/16/23 07:49 Urine Color YELLOW 06/13/23 10:16 Urine Clarity HAZY (CLEAR) 06/13/23 10:16 Urine pH 6.0 PH (5.0-7.5) 06/13/23 10:16 Ur Specific [place] <=1.005 (1.002-1.030) 06/13/23 10:16 Urine Protein NEGATIVE mg/dL (NEGATIVE) 06/13/23 10:16 Urine Glucose (UA) >=1000 mg/dL (NEGATIVE) H 06/13/23 10:16 Urine Ketones TRACE mg/dL (NEGATIVE) 06/13/23 10:16 Urine Occult Blood LARGE (NEGATIVE) H 06/13/23 10:16 Urine Nitrite NEGATIVE (NEGATIVE) 06/13/23 10:16 Urine Bilirubin NEGATIVE (NEGATIVE) 06/13/23 10:16 Urine Urobilinogen 4 E.U./dL (NORMAL) H 06/13/23 10:16 Ur Leukocyte Esterase NEGATIVE (NEGATIVE) 06/13/23 10:16 Urine RBC 0-5 /HPF (0-5) 06/13/23 10:16 Urine WBC 0-3 /HPF (0-5) 06/13/23 10:16 Ur Squamous Epith Cells FEW Squamous (<= Few) 06/13/23 10:16 Urine Bacteria Rare /HPF (None Seen) 06/13/23 10:16 Ur Microscopic Review INDICATED 06/13/23 10:16 Urine Culture Comments NOT INDICATED 06/13/23 10:16 Urine Sodium 53.0 mmol/L 06/17/23 21:40 Nasal Adenovirus (PCR) NOT DETECTED 06/13/23 09:34 Nasal B. parapertussis DNA (PCR) NOT DETECTED 06/13/23 09:34 Nasal Coronavir 229E PCR NOT DETECTED 06/13/23 09:34 Nasal Coronavir HKU1 PCR NOT DETECTED 06/13/23 09:34 Nasal Coronavir NL63 PCR NOT DETECTED 06/13/23 09:34 Nasal Coronavir OC43 PCR NOT DETECTED 06/13/23 09:34 Nasal Enterovir/Rhinovir PCR DETECTED A 06/13/23 09:34 Nasal Influenza B PCR NOT DETECTED 06/13/23 09:34 Nasal Influenza A PCR NOT DETECTED 06/13/23 09:34 Nasal Parainfluen 1 PCR NOT DETECTED 06/13/23 09:34 Nasal Parainfluen 2 PCR NOT DETECTED 06/13/23 09:34 Nasal Parainfluen 3 PCR NOT DETECTED 06/13/23 09:34 Nasal Parainfluen 4 PCR NOT DETECTED 06/13/23 09:34 Nasal RSV (PCR) NOT DETECTED 06/13/23 09:34 Nasal Screen MRSA (PCR) NEGATIVE (NEGATIVE) 06/13/23 21:25 Nasal B.pertussis DNA PCR NOT DETECTED 06/13/23 09:34 Nasal C.pneumoniae (PCR) NOT DETECTED 06/13/23 09:34 Amos Human Metapneumo PCR NOT DETECTED 06/13/23 09:34 Nasal M.pneumoniae (PCR) NOT DETECTED 06/13/23 09:34 Nasal SARS-CoV-2 (PCR) NOT DETECTED 06/13/23 09:34 Last Dose Date Not Reportable 06/18/23 19:05 Last Dose Time Not Reportable 06/18/23 19:05 Vancomycin Peak 26.2 ug/mL (20.0-40.0) 06/18/23 19:05 Vancomycin Trough 9.8 ug/mL 06/18/23 16:25 Urine Opiates Screen NEGATIVE (NEGATIVE) 06/13/23 10:16 Ur Oxycodone Screen NEGATIVE (NEGATIVE) 06/13/23 10:16 Urine Methadone Screen NEGATIVE (NEGATIVE) 06/13/23 10:16 Ur Propoxyphene Screen NEGATIVE (NEGATIVE) 06/13/23 10:16 Ur Barbiturates Screen NEGATIVE (NEGATIVE) 06/13/23 10:16 Ur Tricyclics Screen NEGATIVE (NEGATIVE) 06/13/23 10:16 Ur Phencyclidine Scrn NEGATIVE (NEGATIVE) 06/13/23 10:16 Ur Amphetamine Screen POSITIVE (NEGATIVE) H 06/13/23 10:16 U Methamphetamines Scrn POSITIVE (NEGATIVE) H 06/13/23 10:16 U Benzodiazepines Scrn NEGATIVE (NEGATIVE) 06/13/23 10:16 Urine Cocaine Screen NEGATIVE (NEGATIVE) 06/13/23 10:16 U Cannabinoids Screen NEGATIVE (NEGATIVE) 06/13/23 10:16 HIV 1&2 Ab/P24 Ag 4thGn Non Reactive (Non Reactive) 06/17/23 09:10 Sepsis Event Note (H) - Evaluation Current Stage of Sepsis: Sepsis Possible source of Sepsis: positive: Pulmonary
--- NOTE | 2023-06-20 23:14 | CT Report ---
PROCEDURE: MAXILLOFACIAL WO INDICATIONS: Multiple loose and broken teeth, eval for abcsess TECHNIQUE: Noncontrast 1.5 mm thick axial images acquired from the mandible through the frontal sinuses, with co mili and sagittal reformatting. For radiation dose reduction, the following was used: automated ex posure control, adjustment of mA and/or kV according to patient size. COMPARISON: None. FINDINGS: Image quality: Good Bones: Multifocal periapical lucencies and dental erosions representing cavities. This is most conflu ent in the left upper maxilla. The pterygoid plates are intact. Zygomatic arches are intact. No acute mandible fracture. Pterygoid plates are intact. Sinuses and mastoids: There is opacification of the maxillary sinuses right frontal sinus, partial op acification of the ethmoid air cells and sphenoid sinuses. The mastoids are relatively clear. Soft tissues: Limited evaluation in the absence of intravenous contrast, within this limitation, ther e is suspected edema adjacent to the periapical spaces, particularly adjacent to the right mandible, midline mandible, and left maxillary molars. Mildly enlarged lymph nodes, probably reactive in this c linical setting. Brain: Partially visualized, unremarkable IMPRESSION: Sequelae of advanced dental disease, with particular periapical lucencies seen along the right and mi dline mandible, and left maxilla. Adjacent edema fluid likely representing periapical phlegmon/absces s. Evaluation however is limited by lack of intravenous contrast. Associated paranasal sinus opacific ation probably represents related sinusitis. Consider OMFS follow-up. Reviewed by: Cal Patel MD on 06/20/2023 11:13 PM PDT Approved by: Cal Patel MD on 06/20/2023 11:13 PM PDT Station ID: [id number]
--- NOTE | 2023-06-20 23:18 | CT Report ---
PROCEDURE: CHEST WO INDICATIONS: Worsening Plts, RLL PNA, concern for abscess TECHNIQUE: Noncontrast 1mm axial images were acquired from the pulmonary apices to the posterior costophrenic an gles. Axial 5 mm soft tissue kernel reconstructions were performed as well as 8 mm axial MIP and cor onal and sagittal 5 mm reformations. For radiation dose reduction, the following was used: automate d exposure control, adjustment of mA and/or kV according to patient size. COMPARISON: 06/13/2023 FINDINGS: Image quality: Good Lungs and pleura:Multifocal opacities in the right lower lobe, slightly decreased compared to Septemb . Small internal lucencies are present. Possible loculated small right pleural effusion with adj acent pleural thickening is seen, similar compared to June 13. Mediastinum, heart, and esophagus: No hiatal hernia. Normal heart size. No pathologic lymph nodes by size criteria. Chest wall and thyroid: Prominent thyroid. Chest wall is unremarkable Upper abdomen: No gross abnormality on these noncontrast images. Bones: No acute or suspicious osseous finding. IMPRESSION: Multifocal right lung, particularly lower lobe opacities, slightly decreased compared to June 13 , but with internal lucent components. This is probably infectious, possibly with early cavitating pr operties. There is a small adjacent right loculated effusion which is similar to prior. Consider futu re imaging surveillance to assess for resolution. Other findings as above. Reviewed by: Cal Patel MD on 06/20/2023 11:17 PM PDT Approved by: Cla Patel MD on 06/20/2023 11:17 PM PDT Station ID: [id number]
[2023-06-21] MEDS: VANCOMYCIN INJ 1.75 GM in SODIUM CHLORIDE 0.9% 500 ML IV SCH ×2 (01:29→14:21)
[2023-06-21] MEDS: SODIUM CHLORIDE FLUSH 0.9% 10 ML SYRINGE IVP SCH ×3 (01:30→17:38)
[2023-06-21 05:51] LABS: BASOPHILS # (AUTO) 0.1 10^3/uL (0.0-0.1); BASOPHILS % (AUTO) 0.4 %; EOSINOPHILS # (AUTO) 0.1 10^3/uL (0.0-0.7); EOSINOPHILS % (AUTO) 1.2 %; HGB - HEMOGLOBIN 8.4 g/dL (12.0-16.0); LYMPHOCYTES # (AUTO) 1.8 10^3/uL (1.5-3.5); LYMPHOCYTES % (AUTO) 16.4 %; MEAN CORPUSCULAR HEMOGLOBIN 18.5 pg (27.0-31.0); MEAN CORPUSCULAR HGB CONC 26.3 g/dL (32.0-36.0); MEAN CORPUSCULAR VOLUME 70.5 fL (81.0-99.0); MONOCYTES # (AUTO) 0.6 10^3/uL (0.0-1.0); MONOCYTES % (AUTO) 4.9 %; NEUTROPHILS # (AUTO) 8.5 10^3/uL (1.5-6.6); NEUTROPHILS % (AUTO) 76.1 %; RED BLOOD COUNT 4.54 10^6/uL (4.20-5.40); RED CELL DISTRIBUTION WIDTH 20.8 % (12.0-15.0); WHITE BLOOD COUNT 11.2 x10^3/uL (4.8-10.8)
[2023-06-21 05:53] LABS: PLATELET ESTIMATE, MANUAL INCREASED (>450,000) (NORMAL); PLATELET MORPHOLOGY NORMAL APPEARANCE (NORMAL); SLIDE REVIEW? Indicated
[2023-06-21 05:54] LABS: WBC MORPHOLOGY (MULTIPLE) NORMAL APPEARANCE (NORMAL)
[2023-06-21 05:55] LABS: PLT - PLATELET COUNT 1114 10^3/uL (130-450)
[2023-06-21 06:06] LABS: CALCIUM 9.2 mg/dL (8.5-10.3); CREATININE 0.4 mg/dL (0.6-1.3); POTASSIUM 4.1 mmol/L (3.5-4.5)
[2023-06-21] MEDS: SODIUM CHLORIDE 0.9% 1,000 ML IV SCH (08:32)
[2023-06-21] MEDS: ENOXAPARIN 40 MG/0.4 ML SYRINGE SUBQ SCH (08:37)
[2023-06-21] MEDS: guaiFENesin 600 MG TABLET PO SCH (08:37)
[2023-06-21] MEDS: INSULIN LISPRO 300 UNIT/3 ML PEN SUBQ SCH ×6 (08:37→17:08)
[2023-06-21] MEDS: oxyCODONE 5 MG TABLET PO PRN ×3 (08:37→16:19)
[2023-06-21] MEDS: CEFEPIME 2 GM in SODIUM CHLORIDE 0.9% MINIBAG 100 ML IV SCH (08:38)
[2023-06-21] MEDS: INSULIN GLARGINE-YFGN 300 UNIT/3 ML PEN SUBQ SCH (08:38)
[2023-06-21] MEDS: SODIUM CHLORIDE 1 GM TABLET PO SCH (08:40)
[2023-06-21] MEDS ORDERED: metroNIDAZOLE 500 MG/100 ML 500 MG/100 ML BAG IV SCH (12:00)
[2023-06-21] MEDS: guaiFENesin 100 MG/5 ML UDC PO PRN (12:17)
[2023-06-21] MEDS ORDERED: FLUCONAZOLE 200 MG/100 ML 100 ML IV SCH (13:00)
--- NOTE | 2023-06-21 13:37 | DISCHARGE SUMMARY ---
Discharge Summary Admit Date: 06/13/23 Discharge Date: 06/21/23 Discharging Provider: Dr Amanda Grijalva Primary Care Provider: None Discharge Disposition: 02 Transfer Acute Care Hosp Discharge Facility Name: [facility] History of Present Illness: A 43 years old female with history of seasonal asthma, known allergies to penicillin, intolerance to prednisone, class III obesity with BMI 43, smoker presented to the ED with complaints of 5 days of shortness of breath and a fever. Patient reports she lives with her daughter and her sister. Her sisters 2 grandchildren were sick, and her daughter was ill as well. She started to feel shortness of breath about 4 days ago, along with right-sided chest pain. She feels like she is getting worse over the time. Which prompted her ED visit. Patient thought she had fevers, and reports cough, congestion. Also reports right flank pain, denies dysuria or frequency. In the ED patient is afebrile, however tachycardia at heart rate 124/min, tachypnea with respiratory rate of 36/min. Elevated blood pressure of 170/104. Oxygen saturation of 89% on room air. 92% on 2 L of oxygen. Labs significant with WBC 25.9, left shift hemoglobin 8.5, platelet 618, normal eosinophils. Sodium 126, BUN 12, creatinine 0.5, glucose 533, ALP 316, INR 1.6. D-dimer 1005, BNP 36. Lactic acid 1.6. Blood gas pH 7.49. Respiratory panel shows rhinovirus positive. UA has no sign of infection. U tox positive with amphetamine and meth. Chest x-ray shows possible fluid overloaded and right lower lobe consolidation. CTA ruled out pulmonary embolism, confirmed right lower lobe consolidation with small pleural effusion. - HOSPITAL COURSE Hospital Course: (1) Sepsis Resolved with iv antibiotics and fluids (2) Acute respiratory failure with hypoxia She needed suppl O2 at 2-3L/min. This slowly improved, and by time of transfer, she was on room air (3) CAP (community acquired pneumonia) Patient was in respr. isolation because she was Enterovir and Rhinovir (+). She was put on iv Levaquin and iv Cefepime initially, then changed to iv Cefepime and iv Vanco. She had a productive cough with yellow-green sputum, Mucinex helped. WBC improved daily, but her platelet count floyd. CXR showed a persistent RLL consolidation with small effusion. She had 2 US tests to look at possibly draining the pleural fluid, but there was too little to tap. (4) Thrombocytosis Despite her WBC decreasing (slowly), she had a climbing platelet count daily, suggesting ongoing infection. Her plt count was as high as >1,100K. I discussed these findings with ID at [facility], who advise a CT chest be done. (5) Cavitary lung disease - J98.4 CT chest was done that showed slightly improved consolidation, but 2 cavitary lesions were present within the RLL consolidation. A maxillo-facial CT was also done and showed several small areas of lucency suggesting abscesses. She had been kept on empiric iv cefepime and vancomycin to cover Pseud and MRSA, then we added anaerobic coverage, given the cavitary spaces seen on CT chest and in gums. I reached out to larger facilities to have her transferred to a hospital that has IR and ID, Pulm (for poss bronchoscopy), and even Thoracic surgery. She was accepted in transfer to [facility] and transferred there is stable c ondition. (6) Newly diagnosed diabetes Glucose was 533 at admission and was very elevated throughout hospitalization (300's>> 200's) due to her infection. Her A1c came back at 13.9, so she is a newly diagnosed Diabetic. We continued to increase Insulin doses for goal of 150 -180 during hospitalization. Educated patient on diet, and insulin use. She was doing self-injections, since she will likely need Insulin going home. We sent off Insulin Ab test and Glutamic Acid Decarboxylase Autoantibodies test, which were not back by the time of transfer. (7) Hyperglycemia She did not achieve the goal of glu 150-180 while hospitalized, likely due to ongoing inflammation/infection. We were adjusting Simglee and Reg Insulin dos ing. Only on her last day here, glu reached 175. (8) Hyponatremia I suspected pseudohyponatremia given the very high serum glu levels. Also she may have been volume depleted since she presented with sepsis. Serum sodium improved with liberal salt use (9) Elevated d-dimer This persisted, likely related to sepsis, tissue ischemia. Also, patient is having her menstrual cycle, almost finished the cycle. She did report the flow seems less than usual. She is not . However, can not rule out vascular abnormalities, or cancer related procoagulant. (10) Iron deficiency Anemia Low iron level of 11. With acute infection, we were holding off on iron supplement, planned to start iron after infection is controlled (11) Substance abuse She had a positive urine tox with meth and amphetamine, however she claimed she stopped using drugs "years ago". Reminded patient the dangers of using drugs and advised to quit substance abuse. (12) Obesity Needs diet adjustments for obesity and for DM going forward. - ALLERGIES Allergies/Adverse Reactions: Allergies Allergy/AdvReac Type Severity Reaction Status Date / Time mushroom Allergy Unknown Verified 06/13/23 21:06 Penicillins AdvReac Unknown Verified 01/21/19 06:18 sumatriptan [From Imitrex] AdvReac Unknown Verified 01/21/19 06:18 - MEDICATIONS Home Medications: Ambulatory Orders Medication Instructions Recorded Confirmed No Known Home Medications 06/14/23 06/14/23 - PHYSICAL EXAM AT DISCHARGE General Appearance: positive: No acute distress, Alert, Other (Disheveled, morbidly obese (BMI 41)) Eyes Bilateral: positive: Normal inspection, EOMI ENT: positive: No signs of dehydration, Other (Several missing and loose teeth, has black areas at roots of several teeth, with mild gum tenderness) Neck: positive: Nml inspection, No JVD Respiratory: positive: Chest non-tender, Rhonchi (R lateral base), Other (Prolonged exp phase, and poor air mvm of other lung lloyd.) Cardiovascular: positive: Regular rate & rhythm, No murmur Abdomen: positive: Non-tender, Nml bowel sounds, No distention, Other (Obese) Skin: positive: No rash, Warm, Dry Extremities: positive: Non-tender, No pedal edema Neurologic/Psychiatric: positive: Oriented x3, CN's nml (2-12), Motor nml, Sensation nml - LABS Result Diagrams: 06/21/23 05:17 06/21/23 05:17 - DIAGNOSTIC IMAGING Diagnostic Imaging Results: Final report reviewed - SEPSIS Current Stage of Sepsis: Sepsis Possible source of Sepsis: Pulmonary - FOLLOW UP Follow Up: F/U will be determined after discharge from [facility] in [place]. - TIME SPENT Time Spent in Discharge (Minutes): 55
--- NOTE | 2023-06-21 13:37 | Discharge Plan ---
Discharge Plan Problem Reviewed?: Yes Disposition: 02 Transfer Acute Care Hosp No Smoking: If you smoke, Please STOP! Call for help.
[2023-06-21 19:33] VITALS: BP 126/68; O2SAT 92
== END 2023-06-21 19:35 | disposition short-term general hospital (02) | DRG 871 ==
LOC: ED 09:06 → MS2 16:19
PROVIDERS: ADMIT Internal Medicine; ATTEND Internal Medicine
DX: A41.9 Sepsis, unspecified organism (principal); J12.89 Other viral pneumonia; J96.01 Acute respiratory failure with hypoxia; J85.1 Abscess of lung with pneumonia; J15.9 Unspecified bacterial pneumonia; J91.8 Pleural effusion in other conditions classified elsewhere; Z68.41 Body mass index [BMI] 40.0-44.9, adult; E87.1 Hypo-osmolality and hyponatremia; R65.20 Severe sepsis without septic shock; B97.89 Other viral agents as the cause of diseases classified elsewhere; Z88.0 Allergy status to penicillin; E66.01 Morbid (severe) obesity due to excess calories; D75.839 Thrombocytosis, unspecified; E11.65 Type 2 diabetes mellitus with hyperglycemia; J98.4 Other disorders of lung; D50.9 Iron deficiency anemia, unspecified; F15.10 Other stimulant abuse, uncomplicated; F17.200 Nicotine dependence, unspecified, uncomplicated
CPT/HCPCS: 36415; 70486; 71045; 71046; 71250; 71275; 74177; 76604; 80048; 80053; 80202; 80306; 81001; 82550; 82607; 82746; 82803; 83036; 83540; 83605; 83690; 83735; 83880; 84100; 84300; 84466; 85025; 85379; 85610; 87040; 87070; 87205; 87389; 87633; 87640; 93005; 94640; 96361; 96365; 96366; 96367; 96375; 99285; A9270; J0131; J1650; J1815; J3370; Q9967; 81003; 87086

== ENCOUNTER 2023-10-15 18:00 | Outpatient (CLI) | payer MEDICAID ==
[2023-10-15 20:37] LABS: BASOPHILS # (AUTO) 0.1 10^3/uL (0.0-0.1); BASOPHILS % (AUTO) 0.7 %; EOSINOPHILS # (AUTO) 0.2 10^3/uL (0.0-0.7); EOSINOPHILS % (AUTO) 2.6 %; HGB - HEMOGLOBIN 12.5 g/dL (12.0-16.0); LYMPHOCYTES # (AUTO) 2.2 10^3/uL (1.5-3.5); LYMPHOCYTES % (AUTO) 25.5 %; MEAN CORPUSCULAR HEMOGLOBIN 25.3 pg (27.0-31.0); MEAN CORPUSCULAR HGB CONC 31.3 g/dL (32.0-36.0); MEAN PLATELET VOLUME 9.8 fL (7.9-10.8); MONOCYTES # (AUTO) 0.5 10^3/uL (0.0-1.0); MONOCYTES % (AUTO) 5.9 %; NEUTROPHILS # (AUTO) 5.7 10^3/uL (1.5-6.6); PLT - PLATELET COUNT 461 10^3/uL (130-450); RED BLOOD COUNT 4.94 10^6/uL (4.20-5.40); WHITE BLOOD COUNT 8.7 x10^3/uL (4.8-10.8)
[2023-10-15 20:50] LABS: ALBUMIN 3.9 g/dL (3.2-5.5); ALBUMIN/GLOBULIN RATIO 1.1 (1.0-2.2); ALKALINE PHOSPHATASE 80 IU/L (42-121); ALT ALANINE AMINOTRANSFERASE 21 IU/L (10-60); AST ASPARTATE AMINOTRANSFERASE 16 IU/L (10-42); BILIRUBIN,TOTAL 0.2 mg/dL (0.2-1.0); BUN - BLOOD UREA NITROGEN 15 mg/dL (6-20); CALCIUM 9.6 mg/dL (8.5-10.3); CARBON DIOXIDE - CO2 29 mmol/L (21-32); CHLORIDE 101 mmol/L (101-111); CHOL/HDL RATIO 4.4 (<4.4); CHOLESTEROL 191 mg/dL; CREATININE 0.8 mg/dL (0.6-1.3); GFR - MDRD 78 (>89); GLUCOSE 138 mg/dL (74-104); HDL CHOLESTEROL 43 mg/dL; LDL CHOLESTEROL,CALCULATED 105 mg/dL; LDL/HDL RATIO 2.4 (<4.4); POTASSIUM 3.8 mmol/L (3.5-4.5); SODIUM 136 mmol/L (135-145); TOTAL PROTEIN 7.5 g/dL (6.4-8.9); TRIGLYCERIDES 214 mg/dL (48-352); VLDL CHOLESTEROL 43 mg/dL
[2023-10-15 21:01] LABS: THYROID STIMULATING HORMONE 1.18 uIU/mL (0.34-5.60)
[2023-10-15 22:02] LABS: ESTIMATED AVERAGE GLUCOSE 160 mg/dL (70-100); HEMOGLOBIN A1c% 7.2 % (4.27-6.07)
== END 2023-10-15 18:15 | disposition home or self-care (01) ==
LOC: LAB.N 18:00
PROVIDERS: ATTEND Physician Assistant Medical
DX: E11.9 Type 2 diabetes mellitus without complications (principal)
CPT/HCPCS: 36415; 80053; 80061; 83036; 83721; 84443; 85025

== ENCOUNTER 2023-12-08 17:22 | Outpatient (CLI) | payer MEDICAID ==
[2023-12-08 20:55] LABS: BASOPHILS # (AUTO) 0.1 10^3/uL (0.0-0.1); BASOPHILS % (AUTO) 0.9 %; EOSINOPHILS # (AUTO) 0.4 10^3/uL (0.0-0.7); EOSINOPHILS % (AUTO) 3.8 %; HCT - HEMATOCRIT 40.7 % (37.0-47.0); HGB - HEMOGLOBIN 12.1 g/dL (12.0-16.0); LYMPHOCYTES # (AUTO) 2.4 10^3/uL (1.5-3.5); LYMPHOCYTES % (AUTO) 24.7 %; MEAN CORPUSCULAR HEMOGLOBIN 24.3 pg (27.0-31.0); MEAN CORPUSCULAR HGB CONC 29.7 g/dL (32.0-36.0); MEAN CORPUSCULAR VOLUME 81.9 fL (81.0-99.0); MONOCYTES # (AUTO) 0.5 10^3/uL (0.0-1.0); NEUTROPHILS # (AUTO) 6.3 10^3/uL (1.5-6.6); NEUTROPHILS % (AUTO) 65.3 %; PLT - PLATELET COUNT 451 10^3/uL (130-450); RED BLOOD COUNT 4.97 10^6/uL (4.20-5.40); RED CELL DISTRIBUTION WIDTH 14.4 % (12.0-15.0); WHITE BLOOD COUNT 9.6 x10^3/uL (4.8-10.8)
[2023-12-08 20:56] LABS: ESTIMATED AVERAGE GLUCOSE 146 mg/dL (70-100); HEMOGLOBIN A1c% 6.7 % (4.27-6.07)
[2023-12-08 21:04] LABS: ALBUMIN/GLOBULIN RATIO 1.1 (1.0-2.2); ALKALINE PHOSPHATASE 66 IU/L (42-121); ALT ALANINE AMINOTRANSFERASE 13 IU/L (10-60); AST ASPARTATE AMINOTRANSFERASE 11 IU/L (10-42); BILIRUBIN,TOTAL 0.2 mg/dL (0.2-1.0); BUN - BLOOD UREA NITROGEN 24 mg/dL (6-20); CALCIUM 10.3 mg/dL (8.5-10.3); CARBON DIOXIDE - CO2 29 mmol/L (21-32); CHLORIDE 100 mmol/L (101-111); CHOL/HDL RATIO 4.9 (<4.4); CHOLESTEROL 230 mg/dL; CREATININE 0.9 mg/dL (0.6-1.3); GFR - MDRD 68 (>89); GLUCOSE 122 mg/dL (74-104); HDL CHOLESTEROL 47 mg/dL; LDL CHOLESTEROL,CALCULATED 142 mg/dL; POTASSIUM 4.3 mmol/L (3.5-4.5); SODIUM 134 mmol/L (135-145); TOTAL PROTEIN 7.7 g/dL (6.4-8.9); TRIGLYCERIDES 206 mg/dL (48-352); VLDL CHOLESTEROL 41 mg/dL
[2023-12-08 21:15] LABS: THYROID STIMULATING HORMONE 0.84 uIU/mL (0.34-5.60)
== END 2023-12-08 17:23 | disposition home or self-care (01) ==
LOC: LAB.N 17:22
PROVIDERS: ATTEND Nurse Practitioner Family
DX: E11.9 Type 2 diabetes mellitus without complications (principal)
CPT/HCPCS: 36415; 80050; 80061; 82043; 82570; 83036; 83721

== ENCOUNTER 2023-12-10 13:48 | Outpatient (CLI) | payer MEDICAID ==
--- NOTE | 2023-12-11 09:57 | Mammography Report ---
BILATERAL DIGITAL SCREENING MAMMOGRAM 3D/2D: 12/10/2023 CLINICAL: Routine screening. Comparison is made to exam dated: 05/25/2020 mammogram - [facility]. There are scattered areas of fibroglandular density in both breasts (category b / 25%-50% glandular t issue). No significant masses, calcifications, or other findings are seen in either breast. There has been no significant interval change. IMPRESSION: NEGATIVE There is no mammographic evidence of malignancy. A 1 year screening mammogram is recommended. Based on the Tyrer Cuzick model (a risk assessment model) the patient's lifetime risk is 9.6% and her 10 year risk is 1.5%. According to the ACR, ACS, and NCCN guidelines, an annual breast MRI exam christina g with mammogram is recommended if the patient's lifetime risk is 20% or greater. This exam was interpreted at Station ID: [id number]. NOTE: For mammograms, a report in lay terms will be sent to the patient. Approximately 15% of breast malignancies will not be visualized mammographically. In the management of a palpable breast mass, a negative mammogram must not discourage biopsy of a clinically suspicious lesion. Electronically Signed By: Taras Mesa M.D. [facility]:12/10/2023 17:43:57 letter sent: No_Letter ACR BI-RADS Category 1: Negative 3341F PARENCHYMAL PATTERN: (A) - The breast(s) demonstrate(s) scattered fibroglandular densities. BI-RADS CATEGORY: (1) - 1 RECOMMENDATION: (ANNUAL) - Recommend routine annual screening mammography. [id number] 1 year screening LATERALITY: (B)
== END 2023-12-10 13:49 | disposition home or self-care (01) ==
LOC: DI.N 13:48
PROVIDERS: ATTEND Nurse Practitioner Family
DX: Z12.31 Encounter for screening mammogram for malignant neoplasm of breast (principal); R92.323 Mammographic fibroglandular density, bilateral breasts